=== PATIENT | female | born 1945 | race Caucasian/White ===

== ENCOUNTER 2016-07-29 13:22 | Inpatient (IN) | payer MEDICARE, BC ==
[~2016-07-29] VITALS: Ht 160 cm; Wt 95.3 kg
[~2016-07-29 13:22] MED LIST: ACET325T9 PO; ALPR0.254 PO; ANAS1TAB PO; ASPI-612 PO; ATOR40TA59 PO; CARV12.52 PO; CITA10SO PO; CITA10TA4 PO; CLOP75TA57 PO; FENO145T2 PO; FURO-69 PO; FURO20TA3 PO; FURO40TA4 PO; GABA-585 PO; INSU100I13 SQ; INSU100V SQ; INSU100V13 SQ; INSU300I SQ; LEVO100T PO; LOSA50TA6 PO; MAGN400C PO; ONDA4TAB10 PO; PANT40TA5 PO; POTA20TA82 PO; PRAS10TA9 PO; SPIR25TA3 PO
[2016-07-29] MEDS ORDERED: IV NORMAL SALINE 1,000ML 1,000 ML IV SCH (13:35)
--- NOTE | 2016-07-29 13:39 | PHYS DOC ---
General Chief Complaint: DIZZY/LIGHT HEADED Stated Complaint: DIZZINESS Time Seen by MD: 13:27 Source: patient, old records Exam Limitations: no limitations Problems: History of Present Illness Initial Comments Patient is a 70-year-old female who comes to the ED complaining of dizziness. Patient states that last night she plan to check her glucose around 9 PM and take her Lantus. She says she fell asleep and forgot about these issues until this morning. This morning she noticed she was feeling sluggish and tired, she' s had decreased urination and her glucose which typically runs in the 200s was in the 400s. She reports that she intermittently gets some right upper quadrant discomfort but cannot related to by mouth intake. No fever chills sweats myalgias headache focal weakness, no chest pain the patient does have chronic shortness of breath she denies any new symptoms. Follows with Adriana Hunter Patient follows with Dr. Adam mcdonald cardiology she had an echo May 07 of this year with an ejection fraction of 25-30%. 98.2, and 90, 133/69, 18, 94 room air Timing/Duration: 4-6 hours Severity: moderate Modifying Factors: worse with movement, improves with rest Associated Symptoms: loss of appetite, malaise, weakness Allergies: Coded Allergies: No Known Drug Allergies (Unverified , 07/29/16) Past Medical History Medical History: other (diabetes, peripheral neuropathy, hypertension, hyperlipidemia, coronary artery disease, breast cancer, COPD, hypothyroidism) Surgical History: angioplasty (cardiac stent), pacemaker (total abdominal hysterectomy, left-sided mastectomy) Social History Smoker: non-smoker Alcohol: occasionally Drugs: none Review of Systems Constitutional: denies chills, denies fever, malaise Respiratory: see HPI, denies cough Cardiovascular: denies chest pain, denies palpitations, denies syncope Gastrointestinal: see HPI, denies diarrhea, denies vomiting Genitourinary: see HPI Musculoskeletal: denies back pain, denies joint swelling, denies neck pain Psychiatric/Neurological: see HPI Hematologic/Lymphatic: denies blood clots, denies easy bleeding, denies easy bruising Physical Exam General Appearance: no apparent distress, obese Eyes: bilateral eye normal inspection, bilateral eye PERRL, bilateral eye EOMI Ear, Nose, Throat: hearing grossly normal, normal ENT inspection, normal pharynx Neck: non-tender, supple Respiratory: normal breath sounds, no respiratory distress Cardiovascular: normal peripheral pulses, regular rate, rhythm Gastrointestinal: soft (large ventral hernia no evidence of incarceration or strangulation, mild right upper quadrant tenderness no rebound guarding or other masses bowel sounds appear normal) Back: no CVA tenderness, no vertebral tenderness Extremities: non-tender, normal inspection 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 PHYSICIAN: JUSTINE PENA DO REASON: dm cad PROCEDURE: PORTABLE CHEST 1V Indication near syncope. A single view of the chest was obtained and is compared to an examination 11 months earlier. Heart size is at the upper limits of normal. There is no congestive heart failure. No focal infiltrate is seen. There is no pleural fluid or pneumothorax. There is no congestive heart failure. IMPRESSION: No acute or focal process is seen in the chest DICTATED AND SIGNED BY: CECILIA MORELAND MD DATE: 07/29/16 1415 CC: ADRIANA LAND; JUSTINE PENA DO ~ PATIENT: LAURE SIERRA ACCOUNT: [id number] : 1945 LOCATION: ER AGE: 70 SEX: F EXAM STATUS: REG ER ORD. PHYSICIAN: JUSTINE PENA DO REASON: epigastric/RUQ pain PROCEDURE: ABDOMEN COMPLETE Indication:Right upper quadrant pain Grayscale images of the abdomen were obtained. Comparison note is made of a prior examination over a decade ago reported as unremarkable Liver:There is some increased attenuation of the ultrasound beam by the liver compatible with fatty infiltration. A definite focal mass lesion is not seen in the visualized liver Gallbladder:Partially contracted but grossly normal. (The patient reports a recent meal). Common bile duct diameter of approximately 4 mm is normal Spleen:Normal Pancreas:Poorly visualized and largely obscured by gas Kidneys:Normal Abdominal aorta and IVC:Similar to the aorta were largely obscured Ancillary findings:None Impression:Fatty infiltration of the liver. Midline structures largely obscured by gas. Partially contracted gallbladder DICTATED AND SIGNED BY: CECILIA MORELAND MD DATE: 07/29/16 1516 CC: ADRIANA LAND; JUSTINE PENA DO ~ Potassium 3.0, BUN 43, creatinine 2.2, glucose 408, creatine kinase 248, BNP 150 Patient received 40 mEq of potassium by mouth and another 10 mEq IV. She received 10 units of regular insulin IV and approximately 700 mL of normal saline IV. Recheck after approximately one hour, potassium 3.1, BUN 40, creatinine 1.6, glucose 303. IMPRESSIONS: Uncontrolled diabetes with hyperglycemia nonketotic Hypovolemia Hypokalemia Acute renal failure Elevated CK Large ventral hernia I discussed the patient with Dr. Cobb who accepts inpatient telemetry admission. Departure Disposition: ADMITTED INPATIENT Additional Instructions: Admit to JUSTINE Bardales DO Jul 29, 2016 13:39
--- NOTE | 2016-07-29 13:40 | EKG ---
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
[2016-07-29 13:59] LABS: BASO % 1 % (0-3); EOS # 0.1 x10^3/uL (0.0-0.7); EOS % 1 % (0-3); HEMATOCRIT 40.1 % (36.0-47.0); LYMPH % 25 % (24-48); MEAN CORPUSCULAR HEMOGLOBIN 31 pg (25-35); MEAN CORPUSCULAR HGB CONC 35 g/dL (31-37); MEAN CORPUSCULAR VOLUME 88 fL (79-100); MONO # 0.5 x10^3/uL (0.0-1.1); MONO % 7 % (0-9); NEUT # 5.6 x10^3uL (1.8-7.7); NEUT % 68 % (31-73); PLATELET COUNT 159 x10^3/uL (140-400); RED BLOOD COUNT 4.56 x10^6/uL (3.50-5.40); RED CELL DISTRIBUTION WIDTH 12.4 % (11.5-14.5); WHITE BLOOD COUNT 8.2 x10^3/uL (4.0-11.0)
[2016-07-29 14:18] LABS: ALBUMIN/GLOBULIN RATIO 1.2 (1.0-1.7); CREATININE 2.2 mg/dL (0.6-1.0); GFR 22.2; MAGNESIUM 1.8 mg/dL (1.8-2.4); TOTAL BILIRUBIN 0.5 mg/dL (0.2-1.0); TOTAL PROTEIN 7.3 g/dL (6.4-8.2)
--- NOTE | 2016-07-29 14:23 | RAD ---
Indication near syncope. A single view of the chest was obtained and is compared to an examination 11 months earlier. Heart size is at the upper limits of normal. There is no congestive heart failure. No focal infiltrate is seen. There is no pleural fluid or pneumothorax. There is no congestive heart failure. IMPRESSION: No acute or focal process is seen in the chest
[2016-07-29 14:36] LABS: BACTERIA,URINE FEW /HPF (0-FEW); BILIRUBIN,URINE NEG (NEG); CLARITY,URINE HAZY; COLOR,URINE YELLOW; GLUCOSE,URINE 100 mg/dL (NEG); HYALINE CASTS, URINE MANY /HPF; NITRITE,URINE NEG (NEG); RBC,URINE RARE /HPF (0-2); SQUAMOUS EPITHELIAL CELL,UR MOD /LPF; UROBILINOGEN,URINE 0.2 mg/dL (0.2 mg/dL); WBC,URINE OCC /HPF (0-4)
[2016-07-29] MEDS: POTASSIUM CHLORIDE 20 MEQ TABLET.ER. PO ONE ×2 (14:45→15:29)
[2016-07-29] MEDS ORDERED: POTASSIUM CHLORIDE 20 MEQ/15 ML ORAL LIQUID. PO ONE (15:00)
[2016-07-29] MEDS ORDERED: INSULIN REGULAR 100 UNIT/ML 10ML VIAL. IV ONE (15:00)
--- NOTE | 2016-07-29 15:22 | RAD ---
Indication:Right upper quadrant pain Grayscale images of the abdomen were obtained. Comparison note is made of a prior examination over a decade ago reported as unremarkable Liver:There is some increased attenuation of the ultrasound beam by the liver compatible with fatty infiltration. A definite focal mass lesion is not seen in the visualized liver Gallbladder:Partially contracted but grossly normal. (The patient reports a recent meal). Common bile duct diameter of approximately 4 mm is normal Spleen:Normal Pancreas:Poorly visualized and largely obscured by gas Kidneys:Normal Abdominal aorta and IVC:Similar to the aorta were largely obscured Ancillary findings:None Impression:Fatty infiltration of the liver. Midline structures largely obscured by gas. Partially contracted gallbladder
[2016-07-29] MEDS: POTASSIUM CHLORIDE 10MEQ 100 ML IV SCH ×2 (15:42→17:09)
[2016-07-29] MEDS ORDERED: ONDANSETRON PF 4 MG/2 ML VIAL. IV PRN (17:15)
[2016-07-29] MEDS ORDERED: ACETAMINOPHEN 325 MG TABLET PO PRN ×2 (17:15→20:30)
--- NOTE | 2016-07-29 18:20 | ACF ---
Admission Criteria Forms DIABETES Clinical Indications for Admission to Inpatient Care (Place 'X' for any and all applicable criteria): Admission is indicated by presence of ALL (if I & II) or ANY ONE (if III or IV) of the following (1)(2)(3)(4): [X]I. Diabetes is uncontrolled as indicated by ANY ONE of the following: [ ]a) Diabetic ketoacidosis as indicated by ALL of the following (8): [ ]i) Hyperglycemia (eg, plasma glucose greater than 200 mg/ dL (11.1 mmol/L)) [ ]ii) Acidosis (eg, arterial pH less than 7.30, serum bicarbonate level less than 15 mEq/L (mmol/L)) [ ]iii) Moderate ketonuria or ketonemia [ ]b) Hyperglycemic hyperosmolar state as indicated by ALL of the following(9)(10): [ ]i) Neurologic dysfunction (eg, stupor, coma, hemiparesis , seizure)(13) [ ]ii) Plasma glucose greater than 600 mg/dL (33.3 mmol/L) [ ]iii) Serum osmolality greater than 320 mOsm/kg (mmol/kg) [X]c) Severe signs or symptoms secondary to hyperglycemia indicated by ANY ONE of the following: [ ]i) Altered mental status(10) [X]ii) Significant hypovolemia or dehydration [ ]iii) Intractable nausea or vomiting [ ]iv) Unexplained fever or severe infection [ ]v) Severe electrolyte abnormality (eg, hypokalemia, hyperkalemia, hypernatremia) [XII. Management at other levels of care (Also use Diabetes: Observation Care as appropriate) is not feasible because of ANY ONE of the following: [ ]a) Condition was not adequately corrected with treatment at other levels of care. [X]b) Treatment at other levels of care is not appropriate because of condition severity (eg, hyperosmolar coma). [ ]III. Contraindications and/or Inappropriate clinical situations for Observational Care in patients with Diabetes, when ANY ONE of the following is required: [ ]a) Patient require specific diagnostic workup or therapeutic intervention 22 [ ]b) Patient with abnormal vital signs or altered mental status 23 [ ]IV. General contraindications and/or Inappropriate clinical situations for Observational Care in patients with Diabetes, when ANY ONE of the following is required: [ ]a) Prediction of prolongation of LOS based on ANY ONE of the following may be considered as a contraindication for observational care 2, 3, 4, 5, 6, 7, 8, 9, 10, 11 [ ]i) Age > 65 yrs. [ ]ii) Patient arriving by ambulance [ ]iii) Patient with high acuity [ ]iv) Patient requiring vital sign monitoring [ ]v) Patient on IV medication [ ]b) Systolic blood pressures 180mmHg 3,12 [ ]c) Patient with altered mental status including delirium and other alteration of consciousness, (3) [ ]d) Patient whose discharge disposition will be to a long term home or rehabilitation home should not be managed in Emergency Department Observation Unit. CMS rule requires 3 days hospital stay before such placement.3,13 [ ]e) Patient with failure to thrive due to broad array of etiologies 3,16,17 [ ]f) Inability to ambulate 3,14 Extended stay beyond goal length of stay may be needed for(3)(20): [ ]a) Treatment of precipitating causes [ ]b) Development of hypoglycemia [ ]c) Complications of treatment [ ]d) Complications of decompensated diabetes (eg, acute gastric dilatation, persistent metabolic or neurologic derangement) [ ]e) Active Comorbidities [ ]f) Older patients( 65 years or older) The original [employer] content created by [employer] has been revised. The portions of the content which have been revised are identified through the use of italic text or in bold,and [facility] has neither reviewed nor approved the modified material. All other unmodified content is copyright [email or web address]. Please see references footnoted in the original [email or web address] edition 2016 Admission Criteria Met?: Yes SUKHI CORNELL Jul 29, 2016 18:20
[2016-07-29 18:45] VITALS: BP 135/76
[2016-07-29] MEDS ORDERED: METO5TAB4 PO (19:22)
[2016-07-29] MEDS ORDERED: INSU100I13 SQ (19:31)
[2016-07-29] MEDS: IV NORMAL SALINE 1,000ML 1,000 ML IV SCH (19:39)
[2016-07-29] MEDS: INSULIN ASPART 300 UNITS/3 ML INSULN.PEN SQ SCH (19:42)
[2016-07-29] MEDS ORDERED: ALPRAZolam 0.25 MG TABLET PO PRN (20:30)
[2016-07-29] MEDS: GABAPENTIN 100 MG CAPSULE. PO SCH (21:39)
[2016-07-29] MEDS: FENOFIBRATE NANOCRYSTALLIZED 145 MG TABLET PO SCH (21:40)
[2016-07-29] MEDS: ATORVASTATIN CALCIUM 20 MG TABLET PO SCH (21:40)
[2016-07-29] MEDS: POTASSIUM CHLORIDE 20 MEQ/15 ML ORAL LIQUID. PO SCH ×2 (21:41→22:00)
[2016-07-29] MEDS: CARVEDILOL 12.5 MG TABLET PO SCH (21:43)
[2016-07-29] MEDS: INSULIN DETEMIR 300 UNITS/3 ML INSULN.PEN. SQ SCH (21:50)
[2016-07-29] MEDS: IPRATRPIUM/ALBUTEROL 0.5/2.5MG 3 ML NEBU. NEB SCH (22:00)
[2016-07-29 22:36] VITALS: BP 119/79
[2016-07-29] MEDS: POTASSIUM CHLORIDE 20 MEQ TABLET.ER. PO SCH (22:50)
[2016-07-30] MEDS: IV NORMAL SALINE 1,000ML 1,000 ML IV SCH ×3 (04:02→21:00)
[2016-07-30 04:21] VITALS: BP 102/61
[2016-07-30 04:24] LABS: BASO % 1 % (0-3); EOS # 0.1 x10^3/uL (0.0-0.7); EOS % 1 % (0-3); HEMOGLOBIN 12.8 g/dL (12.0-15.5); LYMPH # 2.4 x10^3/uL (1.0-4.8); LYMPH % 37 % (24-48); MEAN CORPUSCULAR HEMOGLOBIN 31 pg (25-35); MEAN CORPUSCULAR HGB CONC 35 g/dL (31-37); MEAN CORPUSCULAR VOLUME 88 fL (79-100); MONO # 0.6 x10^3/uL (0.0-1.1); MONO % 9 % (0-9); NEUT # 3.5 x10^3uL (1.8-7.7); NEUT % 53 % (31-73); PLATELET COUNT 135 x10^3/uL (140-400); RED BLOOD COUNT 4.21 x10^6/uL (3.50-5.40); WHITE BLOOD COUNT 6.7 x10^3/uL (4.0-11.0)
[2016-07-30 05:00] LABS: CALCIUM 8.4 mg/dL (8.5-10.1); CREATININE 1.6 mg/dL (0.6-1.0); GFR 32.1
[2016-07-30] MEDS: LEVOTHYROXINE 100 MCG TABLET PO SCH (06:38)
[2016-07-30] MEDS: POTASSIUM CHLORIDE 20 MEQ TABLET.ER. PO SCH ×3 (06:38→21:20)
[2016-07-30] MEDS: IPRATRPIUM/ALBUTEROL 0.5/2.5MG 3 ML NEBU. NEB SCH ×4 (07:19→20:52)
[2016-07-30] MEDS: ASPIRIN ENTERIC COATED 81 MG TABLET.DR. PO SCH (08:18)
[2016-07-30] MEDS: CITALOPRAM 10 MG TABLET. PO SCH (08:18)
[2016-07-30] MEDS: MAGNESIUM OXIDE 400 MG TABLET PO SCH (08:18)
[2016-07-30] MEDS: SPIRONOLACTONE 25 MG TABLET PO SCH (08:18)
[2016-07-30] MEDS: PANTOPRAZOLE 40 MG TABLET. PO SCH (08:18)
[2016-07-30] MEDS: CLOPIDOGREL BISULFATE 75 MG TABLET PO SCH (08:18)
[2016-07-30] MEDS: GABAPENTIN 100 MG CAPSULE. PO SCH ×2 (08:19→21:19)
[2016-07-30] MEDS: CARVEDILOL 12.5 MG TABLET PO SCH ×2 (08:19→16:58)
[2016-07-30] MEDS: INSULIN ASPART 300 UNITS/3 ML INSULN.PEN SQ SCH ×3 (08:28→16:58)
[2016-07-30] MEDS ORDERED: FUROSEMIDE 40 MG TABLET PO SCH (09:00)
[2016-07-30] MEDS ORDERED: metOLazone 5 MG TABLET PO SCH (09:00)
[2016-07-30] MEDS ORDERED: LOSARTAN 50 MG TABLET. PO SCH (09:00)
--- NOTE | 2016-07-30 09:29 | PDOC2 ---
MARYLIN GALAN APRN 07/30/16 0929: CONSULT Date of Admission DATE: 07/30/16 TIME: 09:11 Reason for Consult: chf Problem List Problems Medical Problems: (1) Hyperglycemia Status: Acute History of Present Illness Mrs Cole is a 70 year old female well known to our practice. She presents with complaints of lightheadedness and low blood pressure. She reports missed doses of insulin and elevated blood sugar, decreased urination and feeling general malaise. She was noted to he hyperglycemic and in acute renal failure in the ED so admitted for management. She denies chest pain, dyspnea or congestive symptoms. She denies palpitations, or syncope. Lightheadedness is improving. 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 Past Surgical History Total abdominal hysterectomy with BSO, left mastectomy and ICD implantation. 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 She denies smoking, ETOH or illicit drugs. Current Medications Current Medications Sodium Chloride 1,000 ml @ 1,000 mls/hr Q1H IV Last administered on 07/29/16 14:00; Start 07/29/16 at 13:35; Stop 07/29/16 at 14:34; Status DC Potassium Chloride (Klor-Con) 40 meq 1X ONCE PO Last administered on 07/29/16 15:29; Start 07/29/16 at 14:45; Stop 07/29/16 at 14:46; Status DC Potassium Chloride (KCl Oral Soln) 40 meq 1X ONCE PO ; Start 07/29/16 at 15:00; Stop 07/29/16 at 15:01; Status DC Insulin Human Regular (NovoLIN R) 10 unit 1X ONCE IV Last administered on 15:35; Start 07/29/16 at 15:00; Stop 07/29/16 at 15:01; Status DC Potassium Chloride 100 ml @ 100 mls/hr Q1H IV Last administered on 07/29/16 17 :09; Start 07/29/16 at 15:30; Stop 07/29/16 at 17:29; Status DC Ondansetron HCl (Zofran) 4 mg PRN Q4HRS PRN IV NAUSEA/VOMITING; Start 07/29/16 at 17:15; Stop 07/30/16 at 17:14 Sodium Chloride 1,000 ml @ 100 mls/hr Q10H IV Last administered on 07/30/16 04 :02; Start 07/29/16 at 17:12; Stop 07/30/16 at 17:11 Acetaminophen (Tylenol) 650 mg PRN Q4HRS PRN PO FEVER; Start 07/29/16 at 17:15; Stop 07/29/16 at 20:56; Status DC Albuterol/ Ipratropium (Duoneb) 3 ml RTQID NEB Last administered on 07/29/16 22 :00; Start 07/29/16 at 20:00; Stop 07/30/16 at 19:59 Potassium Chloride (KCl Oral Soln) 40 meq Q8HRS PO ; Start 07/29/16 at 22:00; Stop 07/29/16 at 22:25; Status DC Insulin Aspart (NovoLOG) 35 units TIDAC SQ Last administered on 07/30/16 08:28 ; Start 07/29/16 at 19:45 Acetaminophen (Tylenol) 650 mg PRN Q4HRS PRN PO PAIN / TEMP; Start 07/29/16 at 20:30 Alprazolam (Xanax) 0.25 mg PRN TID PRN PO ANXIETY / AGITATION; Start 07/29/16 at 20:30 Aspirin (Aspirin Enteric Coated) 81 mg DAILY PO Last administered on 07/30/16 08:18; Start 07/30/16 at 09:00 Carvedilol (Coreg) 12.5 mg BIDWMEALS PO Last administered on 07/30/16 08:19; Start 07/29/16 at 21:00 Citalopram Hydrobromide (CeleXA) 10 mg DAILY PO Last administered on 07/30/16 08:18; Start 07/30/16 at 09:00 Clopidogrel Bisulfate (Plavix) 75 mg DAILY PO Last administered on 07/30/16 08: 18; Start 07/30/16 at 09:00 Fenofibrate (Tricor) 145 mg HS PO Last administered on 07/29/16 21:40; Start at 21:00 Furosemide (Lasix) 40 mg BID94 PO ; Start 07/30/16 at 09:00; Status Future Hold Gabapentin (Neurontin) 100 mg BID PO Last administered on 07/30/16 08:19; Start 07/29/16 at 21:00 Levothyroxine Sodium (Synthroid) 100 mcg DAILYAC PO Last administered on 06:38; Start 07/30/16 at 07:30 Losartan Potassium (Cozaar) 50 mg DAILY PO ; Start 07/30/16 at 09:00 Metolazone (Zaroxolyn) 5 mg DAILY PO ; Start 07/30/16 at 09:00 Pantoprazole Sodium (Protonix) 40 mg DAILY PO Last administered on 07/30/16 08: 18; Start 07/30/16 at 09:00 Spironolactone (Aldactone) 25 mg DAILY PO Last administered on 07/30/16 08:18; Start 07/30/16 at 09:00 Atorvastatin Calcium (Lipitor) 40 mg QHS PO Last administered on 07/29/16 21:40 ; Start 07/29/16 at 21:00 Insulin Detemir (Levemir) 80 units QHS SQ Last administered on 07/29/16 21:50; Start 07/29/16 at 21:00 Magnesium Oxide (Magnesium Oxide) 400 mg DAILY PO Last administered on 08:18; Start 07/30/16 at 09:00 Potassium Chloride (Klor-Con) 40 meq Q8HRS PO Last administered on 07/30/16 06: 38; Start 07/29/16 at 22:30 Active Scripts Active Magnesium (Magnesium Oxide) 400 Mg Capsule 1 Cap PO DAILY Reported Lantus Solostar (Insulin Glargine,Hum.rec.anlog) 100 Unit/1 Ml Insuln.pen 80 Unit SQ QHS Metolazone 5 Mg Tablet 5 Mg PO DAILY Spironolactone 25 Mg Tablet 25 Mg PO DAILY Synthroid (Levothyroxine Sodium) 100 Mcg Tablet 100 Mcg PO DAILYAC Plavix (Clopidogrel Bisulfate) 75 Mg Tablet 75 Mg PO DAILY Humalog (Insulin Lispro) 100 Unit/1 Ml Vial 35 Unit SQ TIDAC Furosemide 40 Mg Tablet 40 Mg PO BID Citalopram Hbr (Citalopram Hydrobromide) 10 Mg Tablet 10 Mg PO DAILY Tylenol (Acetaminophen) 325 Mg Tablet 650 Mg PO Q4HRS PRN Potassium Chloride 20 Meq Tablet.er 20 Meq PO DAILY Pantoprazole Sodium 40 Mg Tablet.dr 40 Mg PO DAILY Losartan Potassium 50 Mg Tablet 50 Mg PO DAILY Gabapentin 100 Mg Capsule 100 Mg PO BID Fenofibrate (Fenofibrate Nanocrystallized) 145 Mg Tablet 145 Mg PO HS Carvedilol 12.5 Mg Tablet 12.5 Mg PO BID Atorvastatin Calcium 40 Mg Tablet 40 Mg PO HS Aspirin Ec (Aspirin) 81 Mg Tablet.dr 81 Mg PO DAILY Alprazolam 0.25 Mg Tablet 0.25 Mg PO TID PRN Allergies: Coded Allergies: No Known Drug Allergies (Unverified , 07/29/16) Review of System as per HPI or neg General: Alert, Oriented X3, Cooperative, No acute distress HEENT: Atraumatic, EOMI Lungs: Clear to auscultation, Normal air movement Heart: Regular rate, Normal S1, Normal S2 Abdomen: Normal bowel sounds, Soft, No tenderness Extremities: No edema, Normal pulses Neuro: Normal speech, Strength at 5/5 X4 ext Psych/Mental Status: Mental status NL, Mood NL VITALS Vital Signs Date Time Temp Pulse Resp B/P (MAP) Pulse Ox O2 Delivery O2 Flow Rate FiO2 07/30/16 08:19 80 102/61 07/30/16 04:21 98.2 20 95 Room Air Labs Laboratory Tests Test 07/29/16 13:45 07/29/16 13:48 07/29/16 14:00 07/29/16 16:53 White Blood Count 8.2 x10^3/uL (4.0-11.0) Red Blood Count 4.56 x10^6/uL (3.50-5.40) Hemoglobin 14.0 g/dL (12.0-15.5) Hematocrit 40.1 % (36.0-47.0) Mean Corpuscular Volume 88 fL (79-100) Mean Corpuscular Hemoglobin 31 pg (25-35) Mean Corpuscular Hemoglobin Concent 35 g/dL (31-37) Red Cell Distribution Width 12.4 % (11.5-14.5) Platelet Count 159 x10^3/uL (140-400) Neutrophils (%) (Auto) 68 % (31-73) Lymphocytes (%) (Auto) 25 % (24-48) Monocytes (%) (Auto) 7 % (0-9) Eosinophils (%) (Auto) 1 % (0-3) Basophils (%) (Auto) 1 % (0-3) Neutrophils # (Auto) 5.6 x10^3uL (1.8-7.7) Lymphocytes # (Auto) 2.0 x10^3/uL (1.0-4.8) Monocytes # (Auto) 0.5 x10^3/uL (0.0-1.1) Eosinophils # (Auto) 0.1 x10^3/uL (0.0-0.7) Basophils # (Auto) 0.0 x10^3/uL (0.0-0.2) Prothrombin Time 11.0 SEC (9.4-11.4) Prothromb Time International Ratio 1.1 (0.9-1.1) Activated Partial Thromboplast Time 21 SEC (23-33) D-Dimer (Sue) 0.49 mg/L (0.00-0.50) Sodium Level 135 mmol/L (136-145) Potassium Level 3.0 mmol/L (3.5-5.1) Chloride Level 94 mmol/L (98-107) Carbon Dioxide Level 31 mmol/L (21-32) Anion Gap 10 (6-14) Blood Urea Nitrogen 43 mg/dL (7-20) Creatinine 2.2 mg/dL (0.6-1.0) Estimated GFR (Cockcroft-Gault) 22.2 BUN/Creatinine Ratio 20 (6-20) Glucose Level 408 mg/dL (70-99) Calcium Level 9.0 mg/dL (8.5-10.1) Magnesium Level 1.8 mg/dL (1.8-2.4) Total Bilirubin 0.5 mg/dL (0.2-1.0) Aspartate Amino Transf (AST/SGOT) 20 U/L (15-37) Alanine Aminotransferase (ALT/SGPT) 32 U/L (14-59) Alkaline Phosphatase 74 U/L (46-116) Creatine Kinase 248 U/L (26-192) Troponin I Quantitative < 0.017 ng/mL (0-0.055) RN-Lbq-S-Type Natriuretic Peptide 150 pg/mL (0-124) Total Protein 7.3 g/dL (6.4-8.2) Albumin 4.0 g/dL (3.4-5.0) Albumin/Globulin Ratio 1.2 (1.0-1.7) Lipase 339 U/L (73-393) Glucose (Fingerstick) 403 mg/dL (70-99) 305 mg/dL (70-99) Urine Collection Type Unknown Urine Color Yellow Urine Clarity Hazy Urine pH 5.5 Urine Specific [place] 1.010 Urine Protein Neg (NEG-TRACE) Urine Glucose (UA) 100 mg/dL (NEG) Urine Ketones (Stick) Neg mg/dL (NEG) Urine Blood Trace (NEG) Urine Nitrite Neg (NEG) Urine Bilirubin Neg (NEG) Urine Urobilinogen Dipstick 0.2 mg/dL (0.2 mg/dL) Urine Leukocyte Esterase Neg (NEG) Urine RBC Rare /HPF (0-2) Urine WBC Occ /HPF (0-4) Urine Squamous Epithelial Cells Mod /LPF Urine Bacteria Few /HPF (0-FEW) Urine Hyaline Casts Many /HPF Urine Mucus Slight /LPF Test 07/29/16 18:48 07/29/16 22:05 07/30/16 04:10 07/30/16 07:33 Glucose (Fingerstick) 246 mg/dL (70-99) 228 mg/dL (70-99) Troponin I Quantitative < 0.017 ng/mL (0-0.055) < 0.017 ng/mL (0-0.055) White Blood Count 6.7 x10^3/uL (4.0-11.0) Red Blood Count 4.21 x10^6/uL (3.50-5.40) Hemoglobin 12.8 g/dL (12.0-15.5) Hematocrit 37.0 % (36.0-47.0) Mean Corpuscular Volume 88 fL (79-100) Mean Corpuscular Hemoglobin 31 pg (25-35) Mean Corpuscular Hemoglobin Concent 35 g/dL (31-37) Red Cell Distribution Width 13.0 % (11.5-14.5) Platelet Count 135 x10^3/uL (140-400) Neutrophils (%) (Auto) 53 % (31-73) Lymphocytes (%) (Auto) 37 % (24-48) Monocytes (%) (Auto) 9 % (0-9) Eosinophils (%) (Auto) 1 % (0-3) Basophils (%) (Auto) 1 % (0-3) Neutrophils # (Auto) 3.5 x10^3uL (1.8-7.7) Lymphocytes # (Auto) 2.4 x10^3/uL (1.0-4.8) Monocytes # (Auto) 0.6 x10^3/uL (0.0-1.1) Eosinophils # (Auto) 0.1 x10^3/uL (0.0-0.7) Basophils # (Auto) 0.0 x10^3/uL (0.0-0.2) Sodium Level 140 mmol/L (136-145) Potassium Level 4.0 mmol/L (3.5-5.1) Chloride Level 103 mmol/L (98-107) Carbon Dioxide Level 30 mmol/L (21-32) Anion Gap 7 (6-14) Blood Urea Nitrogen 36 mg/dL (7-20) Creatinine 1.6 mg/dL (0.6-1.0) Estimated GFR (Cockcroft-Gault) 32.1 Glucose Level 251 mg/dL (70-99) Calcium Level 8.4 mg/dL (8.5-10.1) Creatine Kinase 191 U/L (26-192) Images EKG - sinus rhythm with non specific st/t abn. CXR - IMPRESSION: No acute or focal process is seen in the chest abdominal US - Impression:Fatty infiltration of the liver. Midline structures largely obscured by gas. Partially contracted gallbladder Assessment/Plan 1. chronic systolic heart failure NYHA class 2-3 - compensated. thoracic impedance measured yesterday and stable. BNP elevation is not significant. CXR without HF. 2. ARF - Continue to hold diuretics. Decrease IVF and monitor closely. 3. NICM/ICM s/p ICD - recent ICD check reveals stable impedances, thresholds and sensing. 4. CAD - angina free. continue medical therapy. 5. hypertension - controlled on current med therapy. consider start entresto in am. 6. hyperlipidemia - check lipids No overt heart failure. Continue to hold diuretics today, decrease IVF and monitor closely for overload. hypokalemia resolved, (she reports not taking potassium at home). Problems: KRISTI BRAVO MD 07/31/16 1607: CONSULT Allergies: Coded Allergies: No Known Drug Allergies (Unverified , 07/29/16) Assessment/Plan Pt. seen and examined. 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 70 y.o woman with LOVE in the setting of uncontrolled blood sugars. Normal cardiac exam. No edema. Start entresto f/u in the office in 7-10 days. Repeat labs next week. thx for consult. Problems: MARYLIN GALAN APRN Jul 30, 2016 09:29 KRISTI BRAVO MD Jul 31, 2016 16:07
[2016-07-30 10:41] VITALS: BP 151/79
[2016-07-30 14:35] VITALS: BP 144/108
[2016-07-30 15:18] VITALS: BP 134/76
[2016-07-30 18:32] VITALS: BP 117/56
[2016-07-30] MEDS: INSULIN DETEMIR 300 UNITS/3 ML INSULN.PEN. SQ SCH (21:15)
[2016-07-30] MEDS: SACUBITRIL/VALSARTAN 24/26MG TABLET. PO SCH (21:19)
[2016-07-30] MEDS: ATORVASTATIN CALCIUM 20 MG TABLET PO SCH (21:19)
[2016-07-30] MEDS: FENOFIBRATE NANOCRYSTALLIZED 145 MG TABLET PO SCH (21:20)
--- NOTE | 2016-07-30 21:57 | HP ---
ADMIT DATE: 07/29/2016 HISTORY OF PRESENT ILLNESS: This is a 70-year-old female patient who basically came to the Emergency Room with a complaint of lightheadedness and was found to be hypotensive. Her blood sugar was high and she was also complained of generalized malaise and weakness and also decreased urination. In the Emergency Room, was found to have hypoglycemia, hypokalemia and acute kidney injury. She denied any chest pain or shortness of breath. Denied any palpitations or syncope. Her lab work showed that she was extremely hypokalemic with some potassium of 3 mEq/L. Her blood sugar was 408, BUN was 43, and creatinine 2.2; however, her BNP was unremarkable at only 150. The patient was basically started on IV fluids and continued on her insulin sliding scale. We held all her diuretics that included her carvedilol. We held her furosemide, losartan as well as metolazone and was admitted for further evaluation and to consult the Cardiology team. PAST MEDICAL HISTORY: Significant for coronary artery disease status post PCI. She is known to have ischemic and nonischemic cardiomyopathy with an ejection fraction of 25%, hypertension, hyperlipidemia, type 2 diabetes, history of breast cancer status post ICD for primary prevention, and chronic systolic congestive heart failure. PAST SURGICAL HISTORY: Significant for total abdominal hysterectomy with bilateral salpingo-oophorectomy, left mastectomy and ICD implantation. FAMILY HISTORY: Noncontributory. 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 She does not smoke, drink alcohol or use recreational drugs. She lives on her own and normally fairly independent. ALLERGIES: She has no known drug allergies. MEDICATIONS: She is currently on following medications: She is on acetaminophen 650 mg every 4 hours, alprazolam 0.25 mg 3 times a day, aspirin 81 mg once a day, atorvastatin calcium 40 mg at bedtime, carvedilol 12.5 mg twice a day, citalopram hydrobromide 10 mg once a day, Plavix 75 mg once a day, fenofibrate nanocrystallized 145 mg once a day, furosemide 40 mg p.o. b.i.d., gabapentin 100 mg twice a day. She is on Lantus insulin 80 units subcutaneously at bedtime. She is on Humalog insulin 35 units subcutaneously 3 times a day before meals, levothyroxine sodium 100 mcg once a day, losartan potassium 50 mg once a day, magnesium oxide 400 mg once a day, metolazone 5 mg daily, Protonix 40 mg once a day, potassium chloride 20 mEq once a day and spironolactone 25 mg once a day. REVIEW OF SYSTEMS: As per history of present illness. In the Emergency Room, the patient was noted to be somewhat pale, but no jaundice, cyanosis, or thyromegaly. No jugular venous distention. No limb edema. PHYSICAL EXAMINATION: VITAL SIGNS: Her heart rate was 90, blood pressure was 131/69, temperature was 98, respiratory rate was 18 and oxygen saturation was 97% on room air. HEAD, EYES, EARS, NOSE AND THROAT: Showed normocephalic, atraumatic. NECK: Supple. HEART: Showed normal first and second heart sounds with no gallop, rub or murmur. CHEST: Clear to auscultation. No crepitation or rhonchi. ABDOMEN: Distended, soft, nontender. No guarding or rigidity. No organomegaly. Hernial orifices intact. Bowel sounds normal. NEUROLOGIC: She was awake, alert, responding appropriately. Cranial nerves intact. EXTREMITIES: She moves extremities without difficulty. LABORATORY DATA: While in the Emergency Room, she has had lab work done including a CBC with a white cell count of 8200, hemoglobin 14, hematocrit 40, MCV 88 and platelet count of 159,000 with normal manual differential. Her chemistry showed a serum sodium 135, potassium 3, chloride 94, bicarbonate 31, anion gap of 10, BUN 43, creatinine 2.2. Estimated GFR was 22 mL per minute. Her glucose was 408, calcium was 9, magnesium was 1.8. Total bilirubin, AST, ALT, alkaline phosphatase were normal. Her CK was 248. Her troponin was less than 0.017. Her beta natriuretic peptide was 150. Total protein was 7.3, albumin was 4. Her prothrombin time was 11, INR 1.1, aPTT was 21 and D-dimer was 0.49. Her urinalysis showed the urine was yellow, hazy with a pH of 5.5, specific gravity of 1.010. The urine was negative for protein, small amount of glucose, negative for ketones. There was a trace of blood, negative for nitrite and leukocyte esterase. There are rare rbc's, occasional wbc's, very few bacteria. Her chest x-ray showed that her heart size is at the upper limit of normal. There is no congestive heart failure, no focal infiltrate is seen. There is no pleural fluid or pneumothorax. There is no congestive heart failure. Given her right upper quadrant pain and slightly abnormal liver enzymes, an abdominal ultrasound showed that she has fatty infiltration of the liver. Midline structures largely obscured by gas, partially contracted gallbladder. ASSESSMENT AND PLAN: The patient was admitted and continued on IV fluid. We held all her diuretics in particular her furosemide, metolazone and losartan. We will continue on insulin and we will monitor her lab work closely and adjust IV fluid and her medication accordingly. NABILA HARDING MD DR: COLEMAN/barak JOB#: [id number] / [id number]
[2016-07-30 23:30] VITALS: BP 138/81
[2016-07-31 05:12] VITALS: BP 130/69
[2016-07-31] MEDS ORDERED: IPRATRPIUM/ALBUTEROL 0.5/2.5MG 3 ML NEBU. ONE (05:29)
[2016-07-31] MEDS: POTASSIUM CHLORIDE 20 MEQ TABLET.ER. PO SCH ×2 (06:09→15:50)
[2016-07-31] MEDS: LEVOTHYROXINE 100 MCG TABLET PO SCH (06:09)
--- NOTE | 2016-07-31 06:12 | PN ---
DATE: 07/30/2016 SUBJECTIVE: The patient was admitted yesterday with dehydration, hyperglycemia, marked hypokalemia, and acute on chronic kidney disease. She was started on IV normal saline at 100 mL per hour. We held all her diuretics and losartan. Continue with potassium. PHYSICAL EXAMINATION: GENERAL: When I examined her this afternoon, she looked well and was clearly in no apparent respiratory distress. She was pale, but no jaundice, cyanosis, or thyromegaly. No jugular venous distension. No lower limb edema. VITAL SIGNS: Her heart rate was 73, blood pressure was 135/76, temperature was 97.5, respiratory rate 20, and oxygen saturation was 96% on room air. The rest of clinical examination is unremarkable. LABORATORY DATA: Her white cell count this morning was 6,700, hemoglobin 12.8, hematocrit 37, MCV 88, and platelet count of 135,000. Her serum sodium this morning was 140, potassium is up to 4, chloride 103, bicarbonate 30, anion gap of 7, BUN 36, creatinine 1.6. Estimated GFR was 32 mL per minute. Her glucose was 251, calcium was 8.4. She has 2 sets of cardiac enzymes and both of them showed troponin to be less than 0.017. ASSESSMENT: 1. Chronic systolic congestive heart failure, well compensated. 2. Acute renal failure, resolving slowly. Her creatinine came down from 2.2 to 1.6. She continues to be on IV fluid. We held her diuretics and losartan. 3. Nonischemic cardiomyopathy/ischemic cardiomyopathy, status post ICD. Her most recent ejection fraction was 25%. 4. Coronary artery disease, stable. The patient is chest pain free. 5. Hypertension, well controlled. 6. Hyperlipidemia. 7. Type 2 diabetes, which is suboptimally controlled. PLAN: To continue with IV fluids at a lower rate. Continue to ____ her lab work. Tomorrow we will get the physical therapy to work with the patient and if she is stable and all her lab work is stabilized, can be discharged home. NABILA HARDING MD DR: COLEMAN/barak JOB#: [id number] / [id number]
[2016-07-31 06:36] LABS: ALBUMIN 3.5 g/dL (3.4-5.0); ALBUMIN/GLOBULIN RATIO 1.1 (1.0-1.7); CALCIUM 8.8 mg/dL (8.5-10.1); CREATININE 1.2 mg/dL (0.6-1.0); GFR 44.7; POTASSIUM 4.6 mmol/L (3.5-5.1); TOTAL BILIRUBIN 0.4 mg/dL (0.2-1.0); TOTAL PROTEIN 6.8 g/dL (6.4-8.2)
[2016-07-31] MEDS: INSULIN ASPART 300 UNITS/3 ML INSULN.PEN SQ SCH ×3 (08:41→16:27)
[2016-07-31] MEDS: SPIRONOLACTONE 25 MG TABLET PO SCH (08:43)
[2016-07-31] MEDS: CARVEDILOL 12.5 MG TABLET PO SCH ×2 (08:43→16:28)
[2016-07-31] MEDS: ASPIRIN ENTERIC COATED 81 MG TABLET.DR. PO SCH (08:44)
[2016-07-31] MEDS: CITALOPRAM 10 MG TABLET. PO SCH (08:44)
[2016-07-31] MEDS: CLOPIDOGREL BISULFATE 75 MG TABLET PO SCH (08:45)
[2016-07-31] MEDS: MAGNESIUM OXIDE 400 MG TABLET PO SCH (08:45)
[2016-07-31] MEDS: GABAPENTIN 100 MG CAPSULE. PO SCH (08:45)
[2016-07-31] MEDS: SACUBITRIL/VALSARTAN 24/26MG TABLET. PO SCH (08:45)
[2016-07-31] MEDS: PANTOPRAZOLE 40 MG TABLET. PO SCH (08:46)
--- NOTE | 2016-07-31 09:43 | PDOC ---
PROGRESS NOTES Diagnosis Problem Problems Medical Problems: (1) Hyperglycemia Status: Acute Assessment Problems Medical Problems: (1) Hyperglycemia Status: Acute 1. chronic systolic heart failure NYHA class 2-3 - compensated. BNP elevation is not significant. CXR without HF. Started on Entresto, discontinue losartan and decrease home diuretics. 2. ARF - Improved. 3. NICM/ICM s/p ICD - recent ICD check reveals stable impedances, thresholds and sensing. 4. CAD - angina free. continue medical therapy. 5. hypertension - controlled on current med therapy. 6. hyperlipidemia - check lipids 7. uncontrolled diabetes mellitus - per PCP She reports that she had been taking no more that three 40mg tablets of lasix at home after starting metolazone in June. Suggest discharge lasix at no more than 20mg BID as she is now on Entresto. Follow up in office in 4 weeks (August 29 at 1:45). Check BMP in 1 week. Subjective feeling ok, no chest pain, no dyspnea, no palpitations. Objective Vital Signs Date Time Temp Pulse Resp B/P (MAP) Pulse Ox O2 Delivery O2 Flow Rate FiO2 07/31/16 08:45 74 130/69 07/31/16 05:12 97.6 20 96 Room Air Intake and Output 07/31/16 07:00 Intake Total 3027.78 ml Balance 3027.78 ml Intake Oral 1600 ml IV Total 1427.78 ml # Voids 6 # Bowel Movements 1 Physical Exam Gen: Awake and alert, no acute distress Neck: no JVD/HJR CV: RRR, no S3/S4 lungs: clear abd: +bowel sounds, soft, non tender Ext: no edema, + pulses Review of Relevant I have reviewed the following items junior (where applicable) has been applied. Labs Laboratory Tests Test 07/29/16 13:45 07/29/16 13:48 07/29/16 14:00 07/29/16 16:53 White Blood Count 8.2 x10^3/uL (4.0-11.0) Red Blood Count 4.56 x10^6/uL (3.50-5.40) Hemoglobin 14.0 g/dL (12.0-15.5) Hematocrit 40.1 % (36.0-47.0) Mean Corpuscular Volume 88 fL (79-100) Mean Corpuscular Hemoglobin 31 pg (25-35) Mean Corpuscular Hemoglobin Concent 35 g/dL (31-37) Red Cell Distribution Width 12.4 % (11.5-14.5) Platelet Count 159 x10^3/uL (140-400) Neutrophils (%) (Auto) 68 % (31-73) Lymphocytes (%) (Auto) 25 % (24-48) Monocytes (%) (Auto) 7 % (0-9) Eosinophils (%) (Auto) 1 % (0-3) Basophils (%) (Auto) 1 % (0-3) Neutrophils # (Auto) 5.6 x10^3uL (1.8-7.7) Lymphocytes # (Auto) 2.0 x10^3/uL (1.0-4.8) Monocytes # (Auto) 0.5 x10^3/uL (0.0-1.1) Eosinophils # (Auto) 0.1 x10^3/uL (0.0-0.7) Basophils # (Auto) 0.0 x10^3/uL (0.0-0.2) Prothrombin Time 11.0 SEC (9.4-11.4) Prothromb Time International Ratio 1.1 (0.9-1.1) Activated Partial Thromboplast Time 21 SEC (23-33) D-Dimer (Sue) 0.49 mg/L (0.00-0.50) Sodium Level 135 mmol/L (136-145) Potassium Level 3.0 mmol/L (3.5-5.1) Chloride Level 94 mmol/L (98-107) Carbon Dioxide Level 31 mmol/L (21-32) Anion Gap 10 (6-14) Blood Urea Nitrogen 43 mg/dL (7-20) Creatinine 2.2 mg/dL (0.6-1.0) Estimated GFR (Cockcroft-Gault) 22.2 BUN/Creatinine Ratio 20 (6-20) Glucose Level 408 mg/dL (70-99) Calcium Level 9.0 mg/dL (8.5-10.1) Magnesium Level 1.8 mg/dL (1.8-2.4) Total Bilirubin 0.5 mg/dL (0.2-1.0) Aspartate Amino Transf (AST/SGOT) 20 U/L (15-37) Alanine Aminotransferase (ALT/SGPT) 32 U/L (14-59) Alkaline Phosphatase 74 U/L (46-116) Creatine Kinase 248 U/L (26-192) Troponin I Quantitative < 0.017 ng/mL (0-0.055) NF-Flu-E-Type Natriuretic Peptide 150 pg/mL (0-124) Total Protein 7.3 g/dL (6.4-8.2) Albumin 4.0 g/dL (3.4-5.0) Albumin/Globulin Ratio 1.2 (1.0-1.7) Lipase 339 U/L (73-393) Glucose (Fingerstick) 403 mg/dL (70-99) 305 mg/dL (70-99) Urine Collection Type Unknown Urine Color Yellow Urine Clarity Hazy Urine pH 5.5 Urine Specific [place] 1.010 Urine Protein Neg (NEG-TRACE) Urine Glucose (UA) 100 mg/dL (NEG) Urine Ketones (Stick) Neg mg/dL (NEG) Urine Blood Trace (NEG) Urine Nitrite Neg (NEG) Urine Bilirubin Neg (NEG) Urine Urobilinogen Dipstick 0.2 mg/dL (0.2 mg/dL) Urine Leukocyte Esterase Neg (NEG) Urine RBC Rare /HPF (0-2) Urine WBC Occ /HPF (0-4) Urine Squamous Epithelial Cells Mod /LPF Urine Bacteria Few /HPF (0-FEW) Urine Hyaline Casts Many /HPF Urine Mucus Slight /LPF Test 07/29/16 18:48 07/29/16 22:05 07/30/16 04:10 07/30/16 07:33 Glucose (Fingerstick) 246 mg/dL (70-99) 228 mg/dL (70-99) Troponin I Quantitative < 0.017 ng/mL (0-0.055) < 0.017 ng/mL (0-0.055) White Blood Count 6.7 x10^3/uL (4.0-11.0) Red Blood Count 4.21 x10^6/uL (3.50-5.40) Hemoglobin 12.8 g/dL (12.0-15.5) Hematocrit 37.0 % (36.0-47.0) Mean Corpuscular Volume 88 fL (79-100) Mean Corpuscular Hemoglobin 31 pg (25-35) Mean Corpuscular Hemoglobin Concent 35 g/dL (31-37) Red Cell Distribution Width 13.0 % (11.5-14.5) Platelet Count 135 x10^3/uL (140-400) Neutrophils (%) (Auto) 53 % (31-73) Lymphocytes (%) (Auto) 37 % (24-48) Monocytes (%) (Auto) 9 % (0-9) Eosinophils (%) (Auto) 1 % (0-3) Basophils (%) (Auto) 1 % (0-3) Neutrophils # (Auto) 3.5 x10^3uL (1.8-7.7) Lymphocytes # (Auto) 2.4 x10^3/uL (1.0-4.8) Monocytes # (Auto) 0.6 x10^3/uL (0.0-1.1) Eosinophils # (Auto) 0.1 x10^3/uL (0.0-0.7) Basophils # (Auto) 0.0 x10^3/uL (0.0-0.2) Sodium Level 140 mmol/L (136-145) Potassium Level 4.0 mmol/L (3.5-5.1) Chloride Level 103 mmol/L (98-107) Carbon Dioxide Level 30 mmol/L (21-32) Anion Gap 7 (6-14) Blood Urea Nitrogen 36 mg/dL (7-20) Creatinine 1.6 mg/dL (0.6-1.0) Estimated GFR (Cockcroft-Gault) 32.1 Glucose Level 251 mg/dL (70-99) Calcium Level 8.4 mg/dL (8.5-10.1) Creatine Kinase 191 U/L (26-192) Test 07/30/16 11:16 07/30/16 19:27 07/31/16 05:48 07/31/16 07:47 Glucose (Fingerstick) 269 mg/dL (70-99) 256 mg/dL (70-99) 202 mg/dL (70-99) Sodium Level 139 mmol/L (136-145) Potassium Level 4.6 mmol/L (3.5-5.1) Chloride Level 107 mmol/L (98-107) Carbon Dioxide Level 26 mmol/L (21-32) Anion Gap 6 (6-14) Blood Urea Nitrogen 20 mg/dL (7-20) Creatinine 1.2 mg/dL (0.6-1.0) Estimated GFR (Cockcroft-Gault) 44.7 BUN/Creatinine Ratio 17 (6-20) Glucose Level 192 mg/dL (70-99) Calcium Level 8.8 mg/dL (8.5-10.1) Total Bilirubin 0.4 mg/dL (0.2-1.0) Aspartate Amino Transf (AST/SGOT) 18 U/L (15-37) Alanine Aminotransferase (ALT/SGPT) 31 U/L (14-59) Alkaline Phosphatase 59 U/L (46-116) Total Protein 6.8 g/dL (6.4-8.2) Albumin 3.5 g/dL (3.4-5.0) Albumin/Globulin Ratio 1.1 (1.0-1.7) Medications Current Medications Sodium Chloride 1,000 ml @ 1,000 mls/hr Q1H IV Last administered on 07/29/16 14:00; Start 07/29/16 at 13:35; Stop 07/29/16 at 14:34; Status DC Potassium Chloride (Klor-Con) 40 meq 1X ONCE PO Last administered on 07/29/16 15:29; Start 07/29/16 at 14:45; Stop 07/29/16 at 14:46; Status DC Potassium Chloride (KCl Oral Soln) 40 meq 1X ONCE PO ; Start 07/29/16 at 15:00; Stop 07/29/16 at 15:01; Status DC Insulin Human Regular (NovoLIN R) 10 unit 1X ONCE IV Last administered on 15:35; Start 07/29/16 at 15:00; Stop 07/29/16 at 15:01; Status DC Potassium Chloride 100 ml @ 100 mls/hr Q1H IV Last administered on 07/29/16 17 :09; Start 07/29/16 at 15:30; Stop 07/29/16 at 17:29; Status DC Ondansetron HCl (Zofran) 4 mg PRN Q4HRS PRN IV NAUSEA/VOMITING; Start 07/29/16 at 17:15; Stop 07/30/16 at 17:14; Status DC Sodium Chloride 1,000 ml @ 100 mls/hr Q10H IV Last administered on 07/30/16 04 :02; Start 07/29/16 at 17:12; Stop 07/30/16 at 17:11; Status DC Acetaminophen (Tylenol) 650 mg PRN Q4HRS PRN PO FEVER; Start 07/29/16 at 17:15; Stop 07/29/16 at 20:56; Status DC Albuterol/ Ipratropium (Duoneb) 3 ml RTQID NEB Last administered on 07/30/16 20 :52; Start 07/29/16 at 20:00; Stop 07/30/16 at 19:59; Status DC Potassium Chloride (KCl Oral Soln) 40 meq Q8HRS PO ; Start 07/29/16 at 22:00; Stop 07/29/16 at 22:25; Status DC Insulin Aspart (NovoLOG) 35 units TIDAC SQ Last administered on 07/31/16 08:41 ; Start 07/29/16 at 19:45 Acetaminophen (Tylenol) 650 mg PRN Q4HRS PRN PO PAIN / TEMP Last administered on 07/31/16 06:09; Start 07/29/16 at 20:30 Alprazolam (Xanax) 0.25 mg PRN TID PRN PO ANXIETY / AGITATION; Start 07/29/16 at 20:30 Aspirin (Aspirin Enteric Coated) 81 mg DAILY PO Last administered on 07/31/16 08:44; Start 07/30/16 at 09:00 Carvedilol (Coreg) 12.5 mg BIDWMEALS PO Last administered on 07/31/16 08:43; Start 07/29/16 at 21:00 Citalopram Hydrobromide (CeleXA) 10 mg DAILY PO Last administered on 07/31/16 08:44; Start 07/30/16 at 09:00 Clopidogrel Bisulfate (Plavix) 75 mg DAILY PO Last administered on 07/31/16 08: 45; Start 07/30/16 at 09:00 Fenofibrate (Tricor) 145 mg HS PO Last administered on 07/30/16 21:20; Start at 21:00 Furosemide (Lasix) 40 mg BID94 PO ; Start 07/30/16 at 09:00; Status Future Hold Gabapentin (Neurontin) 100 mg BID PO Last administered on 07/31/16 08:45; Start 07/29/16 at 21:00 Levothyroxine Sodium (Synthroid) 100 mcg DAILYAC PO Last administered on 06:09; Start 07/30/16 at 07:30 Losartan Potassium (Cozaar) 50 mg DAILY PO ; Start 07/30/16 at 09:00; Stop at 14:56; Status DC Metolazone (Zaroxolyn) 5 mg DAILY PO ; Start 07/30/16 at 09:00 Pantoprazole Sodium (Protonix) 40 mg DAILY PO Last administered on 07/31/16 08: 46; Start 07/30/16 at 09:00 Spironolactone (Aldactone) 25 mg DAILY PO Last administered on 07/31/16 08:43; Start 07/30/16 at 09:00 Atorvastatin Calcium (Lipitor) 40 mg QHS PO Last administered on 07/30/16 21:19 ; Start 07/29/16 at 21:00 Insulin Detemir (Levemir) 80 units QHS SQ Last administered on 07/30/16 21:15; Start 07/29/16 at 21:00 Magnesium Oxide (Magnesium Oxide) 400 mg DAILY PO Last administered on 08:45; Start 07/30/16 at 09:00 Potassium Chloride (Klor-Con) 40 meq Q8HRS PO Last administered on 07/31/16 06: 09; Start 07/29/16 at 22:30 Sacubitril/ Valsartan (Entresto 24 Mg-26 Mg) 1 tab BID PO Last administered on 07/31/16 08:45; Start 07/30/16 at 21:00 Sodium Chloride 1,000 ml @ 50 mls/hr Q20H IV Last administered on 07/30/16 21: 00; Start 07/30/16 at 21:00 Albuterol/ Ipratropium (Duoneb) 3 ml STK-MED ONCE .ROUTE ; Start 07/31/16 at 05: 29; Stop 07/31/16 at 05:30; Status DC Active Scripts Active Magnesium (Magnesium Oxide) 400 Mg Capsule 1 Cap PO DAILY Reported Lantus Solostar (Insulin Glargine,Hum.rec.anlog) 100 Unit/1 Ml Insuln.pen 80 Unit SQ QHS Metolazone 5 Mg Tablet 5 Mg PO DAILY Spironolactone 25 Mg Tablet 25 Mg PO DAILY Synthroid (Levothyroxine Sodium) 100 Mcg Tablet 100 Mcg PO DAILYAC Plavix (Clopidogrel Bisulfate) 75 Mg Tablet 75 Mg PO DAILY Humalog (Insulin Lispro) 100 Unit/1 Ml Vial 35 Unit SQ TIDAC Furosemide 40 Mg Tablet 40 Mg PO BID Citalopram Hbr (Citalopram Hydrobromide) 10 Mg Tablet 10 Mg PO DAILY Tylenol (Acetaminophen) 325 Mg Tablet 650 Mg PO Q4HRS PRN Potassium Chloride 20 Meq Tablet.er 20 Meq PO DAILY Pantoprazole Sodium 40 Mg Tablet.dr 40 Mg PO DAILY Losartan Potassium 50 Mg Tablet 50 Mg PO DAILY Gabapentin 100 Mg Capsule 100 Mg PO BID Fenofibrate (Fenofibrate Nanocrystallized) 145 Mg Tablet 145 Mg PO HS Carvedilol 12.5 Mg Tablet 12.5 Mg PO BID Atorvastatin Calcium 40 Mg Tablet 40 Mg PO HS Aspirin Ec (Aspirin) 81 Mg Tablet.dr 81 Mg PO DAILY Alprazolam 0.25 Mg Tablet 0.25 Mg PO TID PRN Vitals/I & O Vital Sign - Last 24 Hours 07/30/16 07/30/16 07/30/16 07/30/16 10:41 14:35 15:18 15:43 Temp 97.6 97.6 Pulse 109 82 Resp 20 20 B/P (MAP) 151/79 (103) 144/108 (120) 134/76 (95) Pulse Ox 93 95 95 O2 Delivery Room Air Room Air Room Air 07/30/16 07/30/16 07/30/16 07/30/16 16:58 18:32 19:30 20:52 Temp 98.3 Pulse 82 82 Resp 20 B/P (MAP) 134/76 117/56 (76) Pulse Ox 94 98 O2 Delivery Room Air Room Air Room Air 07/30/16 07/30/16 07/31/16 07/31/16 21:19 23:30 05:12 08:43 Temp 97.7 97.6 Pulse 82 78 74 74 Resp 22 20 B/P (MAP) 117/56 138/81 (100) 130/69 (89) 130/69 Pulse Ox 96 96 O2 Delivery Room Air Room Air 07/31/16 08:45 Pulse 74 B/P (MAP) 130/69 Intake and Output 07/30/16 07/30/16 07/31/16 15:00 23:00 07:00 Intake Total 380 ml 2147.78 ml 500 ml Balance 380 ml 2147.78 ml 500 ml MARYLIN GALAN APRN Jul 31, 2016 09:43
[2016-07-31 10:46] VITALS: BP 125/86
[2016-07-31 14:26] VITALS: BP 113/74
[2016-07-31 16:28] VITALS: BP 113/74
[2016-07-31] MEDS: IV NORMAL SALINE 1,000ML 1,000 ML IV SCH (16:53)
[2016-07-31] MEDS ORDERED: FURO20TA3 PO (16:54)
--- NOTE | 2016-08-01 00:43 | DS ---
DATE OF DISCHARGE: 07/31/2016 HOSPITAL COURSE: The patient is sitting on the edge of the bed comfortably in no apparent distress. She is feeling better. She has had no further episodes of dizziness, lightheadedness. Her blood pressure has remained stable. Blood sugar is much better controlled. She was started on Entresto last night and her Lasix was cut down to 20 mg twice a day. Losartan was discontinued. Her lab work showed that her BUN and creatinine are now back to normal. Her BUN came down from 43 to 20 and creatinine came down from 2.2 to 1.2. The patient will be discharged home to follow up with the Cardiology team. PHYSICAL EXAMINATION: GENERAL: When I examined her this afternoon, she looked well and was clearly in no apparent respiratory distress. She was pale, but no jaundice, cyanosis or thyromegaly. No jugular venous distention. No limb edema. VITAL SIGNS: Her heart rate was 72, blood pressure was 113/74, temperature was 98.1, respiratory rate 20, and oxygen saturation was 96% on room air. HEAD, EYES, EARS, NOSE AND THROAT: Showed normocephalic, atraumatic. NECK: Supple. HEART: Showed normal first and second heart sounds with no gallop, rub or murmur. CHEST: Clear to auscultation. No crepitation or rhonchi. ABDOMEN: Distended, soft, nontender. No guarding or rigidity. No organomegaly. Hernial orifices intact. Bowel sounds normal. NEUROLOGIC: She was awake, alert, responding appropriately. Cranial nerves intact. She moves extremities without difficulty. She ambulates without assistance or assistive devices. Her intake over the last 24 hours was 3000, no output was recorded. LABORATORY DATA: Her lab work showed a white cell count 6700, hemoglobin 12.8, hematocrit 37, MCV 88 and platelet count of 135,000. Her chemistry this morning showed a serum sodium 139, potassium 4.6, chloride 107, bicarbonate was 26, anion gap of 6, BUN 20, creatinine 1.2. Estimated GFR was 45 mL per minute. Her glucose was 92. Calcium was 8.8. Total bilirubin, AST, ALT, alkaline phosphatase were normal. Total protein was 6.8, albumin was 3.5. Her serum triglycerides were 229 mg/dL. Total cholesterol is 159. LDL cholesterol was 82, VLDL was 45 and non-HDL cholesterol was 127. HDL cholesterol 32 and the ratio was 4. HOME MEDICATIONS: She will be discharged home to continue on acetaminophen 650 mg every 4 hours as needed, alprazolam 0.25 mg 3 times a day, aspirin 81 mg once a day, atorvastatin 40 mg at bedtime, carvedilol 12.5 mg twice a day, citalopram hydrobromide 10 mg p.o. daily, Plavix 75 mg daily, fenofibrate nanocrystallized 145 mg at bedtime, gabapentin 100 mg twice a day, Lantus insulin 80 units at bedtime, insulin lispro 35 units 3 times a day before meals, levothyroxine 100 mcg once a day, magnesium oxide 400 mg once a day, metolazone 5 mg once a day, Protonix 40 mg daily, potassium chloride 20 mEq daily, spironolactone 25 mg daily. Her furosemide was cut down to 20 twice a day and losartan was discontinued. FINAL DISCHARGE DIAGNOSES: 1. Acute renal failure, improved. Her BUN and creatinine came down to 20/1.2. 2. Chronic systolic heart failure, [place] [employer] class II to III compensated. 3. Nonischemic cardiomyopathy/ischemic cardiomyopathy, status post ICD. 4. Coronary artery disease; however, she is angina free. 5. Hypertension, well controlled. 6. Hyperlipidemia, on statin. 7. Suboptimally controlled type 2 diabetes. PLAN: The patient is advised to talk to her primary care physician to achieve better control of her blood sugar. NABILA HARDING MD DR: COLEMAN/barak JOB#: [id number] / [id number]
== END 2016-07-31 17:45 | disposition home or self-care (01) | DRG 682 ==
LOC: ER 13:22 → 1 SOUTH 17:17
PROVIDERS: ADMIT Internal Medicine; ATTEND Internal Medicine
DX: N17.0 Acute kidney failure with tubular necrosis (principal); E11.00 Type 2 diabetes mellitus with hyperosmolarity without nonketotic hyperglycemic-hyperosmolar coma (NKHHC); I13.0 Hypertensive heart and chronic kidney disease with heart failure and stage 1 through stage 4 chronic kidney disease, or unspecified chronic kidney disease; I50.22 Chronic systolic (congestive) heart failure; E11.649 Type 2 diabetes mellitus with hypoglycemia without coma; E11.22 Type 2 diabetes mellitus with diabetic chronic kidney disease; E11.65 Type 2 diabetes mellitus with hyperglycemia; E78.5 Hyperlipidemia, unspecified; E86.0 Dehydration; E87.6 Hypokalemia; I95.9 Hypotension, unspecified; I25.119 Atherosclerotic heart disease of native coronary artery with unspecified angina pectoris; E86.1 Hypovolemia; K43.9 Ventral hernia without obstruction or gangrene; I25.5 Ischemic cardiomyopathy; N18.9 Chronic kidney disease, unspecified; Z90.710 Acquired absence of both cervix and uterus; Z95.810 Presence of automatic (implantable) cardiac defibrillator; Z98.61 Coronary angioplasty status; Z90.722 Acquired absence of ovaries, bilateral
CPT/HCPCS: 36415; 71010; 76700; 80048; 80053; 80061; 81001; 82550; 82947; 83036; 83690; 83735; 83880; 84484; 85027; 85379; 85610; 85730; 93005; 94640; 96361; 96365; 96366; 96375; J1815; J3480; J7620; 97110; 97530; 99285-25; J7030

== ENCOUNTER → 2016-08-05 | Outpatient (CLI) | payer MEDICARE, BC ==
[2016-07-31 16:28] VITALS: BP 113/74
[~2016-08-05] MED LIST changes: +METO5TAB4 PO
[2016-08-05 10:23] LABS: CALCIUM 8.8 mg/dL (8.5-10.1); CREATININE 1.4 mg/dL (0.6-1.0); GFR 37.4; POTASSIUM 4.1 mmol/L (3.5-5.1)
== END | disposition home or self-care (01) ==
LOC: LAB 09:42
PROVIDERS: ATTEND Internal Medicine Cardiovascular Disease
DX: I50.9 Heart failure, unspecified (principal)
CPT/HCPCS: 36415; 80048; 83880

== ENCOUNTER → 2016-08-08 | Outpatient (CLI) | payer MEDICARE, BC ==
[2016-07-31 16:28] VITALS: BP 113/74
--- NOTE | 2016-08-08 14:01 | RAD ---
Lumbar spine, 5 views, 08/08/2016: History: Low back and hip pain The bony structures are demineralized. The lumbar vertebral heights are well-maintained. The intervertebral disc spaces are well preserved. There are moderate degenerative changes involving the facet joints bilaterally in the lower lumbar spine. There is no evidence of spondylolysis. Aortoiliac calcific plaquing is present. IMPRESSION: 1. Moderate facet joint arthropathy in the lower lumbar spine. 2. No acute bony abnormality is detected. Left hip, 2 views, 08/08/2016: History: Hip pain No fracture or dislocation is identified. The left hip joint is well maintained. Femoral arterial calcifications are noted. IMPRESSION: No acute left hip abnormality is detected.
== END | disposition home or self-care (01) ==
LOC: DXRADRC 12:07
PROVIDERS: ATTEND Physician Assistant Medical
DX: M25.552 Pain in left hip (principal); M54.5 Low back pain; G89.29 Other chronic pain
CPT/HCPCS: 72110; 73502

== ENCOUNTER → 2016-08-20 | Outpatient (CLI) | payer MEDICARE, BC ==
[2016-07-31 16:28] VITALS: BP 113/74
[2016-08-20 07:14] LABS: CALCIUM 8.7 mg/dL (8.5-10.1); CREATININE 1.3 mg/dL (0.6-1.0); GFR 40.7; POTASSIUM 4.2 mmol/L (3.5-5.1)
== END | disposition home or self-care (01) ==
LOC: LAB 06:46
PROVIDERS: ATTEND Internal Medicine Cardiovascular Disease
DX: I42.9 Cardiomyopathy, unspecified (principal)
CPT/HCPCS: 36415; 80048

== ENCOUNTER → 2016-10-01 | Outpatient (CLI) | payer MEDICARE, BC ==
--- NOTE | 2016-10-01 08:50 | RAD ---
Indication productive cough for 4 days. Frontal and lateral views of the chest were obtained and are compared to an examination 07/29/2016. There is mild cardiomegaly appearing similar. There is no consolidated pneumonia. Significant pleural fluid is not present. There is no pneumothorax. Defibrillating and bipolar cardiac pacing device is noted. A significant change compared to the prior exam is not seen. IMPRESSION: No acute or focal process is seen in the chest
== END | disposition home or self-care (01) ==
LOC: DXRADRC 07:56
PROVIDERS: ATTEND Physician Assistant Medical
DX: R05 Cough (principal)
CPT/HCPCS: 71020

== ENCOUNTER → 2016-10-10 | Outpatient (CLI) | payer MEDICARE, BC ==
[2016-10-10 09:30] LABS: BASO % 1 % (0-3); EOS # 0.1 x10^3/uL (0.0-0.7); EOS % 1 % (0-3); HEMATOCRIT 39.6 % (36.0-47.0); HEMOGLOBIN 13.2 g/dL (12.0-15.5); LYMPH # 1.9 x10^3/uL (1.0-4.8); LYMPH % 29 % (24-48); MEAN CORPUSCULAR HEMOGLOBIN 30 pg (25-35); MEAN CORPUSCULAR HGB CONC 33 g/dL (31-37); MEAN CORPUSCULAR VOLUME 91 fL (79-100); MONO # 0.4 x10^3/uL (0.0-1.1); MONO % 6 % (0-9); NEUT # 4.1 x10^3uL (1.8-7.7); NEUT % 63 % (31-73); PLATELET COUNT 176 x10^3/uL (140-400); RED BLOOD COUNT 4.34 x10^6/uL (3.50-5.40); RED CELL DISTRIBUTION WIDTH 13.3 % (11.5-14.5); WHITE BLOOD COUNT 6.6 x10^3/uL (4.0-11.0)
[2016-10-10 09:40] LABS: ALBUMIN 3.6 g/dL (3.4-5.0); ALBUMIN/GLOBULIN RATIO 1.1 (1.0-1.7); CALCIUM 8.5 mg/dL (8.5-10.1); CREATININE 1.6 mg/dL (0.6-1.0); POTASSIUM 4.4 mmol/L (3.5-5.1); TOTAL BILIRUBIN 0.4 mg/dL (0.2-1.0); TOTAL PROTEIN 6.8 g/dL (6.4-8.2)
[2016-10-11 02:07] LABS: HEMOGLOBIN A1C 7.8 % (4.8-5.6)
== END | disposition home or self-care (01) ==
LOC: LAB 08:48
PROVIDERS: ATTEND Physician Assistant Medical
DX: I50.9 Heart failure, unspecified (principal); E11.9 Type 2 diabetes mellitus without complications
CPT/HCPCS: 36415; 80053; 83036; 85025

== ENCOUNTER → 2016-10-10 | Outpatient (CLI) | payer MEDICARE, BC ==
[2016-10-10 09:34] LABS: CALCIUM 8.6 mg/dL (8.5-10.1); CREATININE 1.7 mg/dL (0.6-1.0); GFR 29.8; POTASSIUM 4.4 mmol/L (3.5-5.1)
== END | disposition home or self-care (01) ==
LOC: LAB 08:52
PROVIDERS: ATTEND Internal Medicine Cardiovascular Disease
DX: I42.9 Cardiomyopathy, unspecified (principal)
CPT/HCPCS: 36415; 80048

== ENCOUNTER 2016-10-26 23:08 | Inpatient (IN) | payer MEDICARE, BC ==
[~2016-10-26] VITALS: Ht 160 cm; Wt 95.1 kg
--- NOTE | 2016-10-26 23:16 | ED.ADGEN ---
Past History Past Medical History: Anxiety, CAD, Cancer, CHF, COPD, Diabetes, GERD, High Cholesterol, Hypertension, MO, Other Past Surgical History: Cancer Surgery, Hysterectomy, Pacemaker, Tonsillectomy, Other Smoking: Non-smoker Alcohol Use: Occasionally Drug Use: None Adult General Chief Complaint Chief Complaint ".. I ve been fighting this for a months.. but my wheezing has gotten worse.. been on two courses of anti biotics..." HPI HPI Patient is a 71 year old female who presents with above hx and complaints . Pt. reports dyspnea and generalized discomfort more tonight . Pt. follows with Dr. Aakash mccurdy, and Adam. Radiology Pt. has past significant medical hx with COPD, CHF, Lt. mastectomy for cancer.. Patient states she's undergone 2 courses of antibiotics no improvement. Patient has somewhat chronic cough that is minimally productive. She reports recent weight gain and leg swelling. Patient states she's been compliant for meds. No recent travel. No history of specific ill contacts. Review of Systems Review of Systems Constitutional: Complains fever or chills [] Eyes: Denies change in visual acuity, redness, or eye pain [] HENT: Denies nasal congestion or sore throat [] Respiratory: Complaints cough or shortness of breath [] Cardiovascular: No additional information not addressed in HPI [] GI: Denies abdominal pain, nausea, vomiting, bloody stools or diarrhea [] : Denies dysuria or hematuria [] Musculoskeletal: Denies back pain or joint pain [] Integument: Denies rash or skin lesions [] Neurologic: Denies headache, focal weakness or sensory changes [] Endocrine: Denies polyuria or polydipsia [] Family History Family History Noncontributory Current Medications Current Medications Current Medications Medications (Trade) Dose Ordered Sig/Brian Start Time Stop Time Status Last Admin Dose Admin Acetaminophen (Tylenol) 1,000 mg 1X ONCE 10/27/16 00:30 10/27/16 00:31 DC 10/27/16 00:26 1,000 MG Albuterol/ Ipratropium (Duoneb) 3 ml Q4HRS W/A 10/27/16 06:00 Aspirin (Kyree Aspirin) 325 mg 1X ONCE 10/26/16 23:45 10/26/16 23:46 DC 10/26/16 23:56 325 MG Azithromycin (Zithromax) 500 mg DAILY 10/27/16 09:00 10/30/16 08:59 Ceftriaxone Sodium 1 gm/ Sodium Chloride 50 ml @ 100 mls/hr Q24H 10/27/16 23:00 Ceftriaxone Sodium (Rocephin) 1 gm STK-MED ONCE 10/27/16 00:50 10/27/16 00:51 DC Enoxaparin Sodium (Lovenox 100mg Syringe) 100 mg 1X ONCE 10/27/16 09:00 10/27/16 09:01 Furosemide (Lasix) 40 mg 1X ONCE 10/26/16 23:45 10/26/16 23:46 DC 10/26/16 23:56 40 MG Methylprednisolone Sodium Succinate (SOLU-Medrol 125MG VIAL) 125 mg 1X ONCE 10/27/16 00:00 10/27/16 00:01 DC 10/26/16 23:57 125 MG Prednisone (Prednisone) 40 mg DAILY 10/27/16 09:00 Sodium Chloride 50 ml @ As Directed STK-MED ONCE 10/27/16 00:50 10/27/16 00:51 DC Allergies Allergies Allergies Coded Allergies Type Severity Reaction Last Updated Verified No Known Drug Allergies 07/29/16 No Physical Exam Physical Exam Constitutional: Moderately acute distress, non-toxic appearance. [] HENT: Normocephalic, atraumatic, bilateral external ears normal, oropharynx moist, no oral exudates, nose normal. [JVD at 30 Eyes: PERRLA, EOMI, conjunctiva normal, no discharge. [] Neck: Normal range of motion, no tenderness, supple, no stridor. [] Cardiovascular: Tachycardia Heart rate regular rhythm, no murmur. Patient per monitor-not currently paced rhythm Lungs & Thorax: Bilateral breath sounds equal apex scattered wheezing and occasional rhonchi auscultation [has mastectomy scar left. Pacer defibrillator right Abdomen: Bowel sounds normal, soft, no tenderness, no masses, no pulsatile masses. Old surgery scar Skin: Warm, dry, no erythema, no rash. Poor turgor Back: No tenderness, no CVA tenderness. [] Extremities: No tenderness, no cyanosis, no clubbing, ROM intact, 1-2+ ankle edema. No cording Neurologic: Alert and oriented X 3, normal motor function, normal sensory function, no focal deficits noted. [] Psychologic: Affect normal, judgement normal, mood normal. [] Current Patient Data Vital Signs Vital Signs Date Time Temp Pulse Resp B/P (MAP) Pulse Ox O2 Delivery O2 Flow Rate FiO2 10/27/16 00:06 Nasal Cannula 2.0 10/26/16 23:15 98.5 92 26 95 Lab Results Laboratory Tests Test 10/26/16 23:30 10/27/16 00:15 Prothrombin Time 10.5 SEC (9.4-11.4) Prothrombin Time INR 1.0 (0.9-1.1) PTT 21 SEC (23-33) L D-Dimer (Sue) 0.76 mg/L (0.00-0.50) H Sodium Level 138 mmol/L (136-145) Potassium Level 4.3 mmol/L (3.5-5.1) Chloride Level 104 mmol/L (98-107) Carbon Dioxide Level 25 mmol/L (21-32) Anion Gap 9 (6-14) Blood Urea Nitrogen 18 mg/dL (7-20) Creatinine 1.3 mg/dL (0.6-1.0) H Estimated GFR (Cockcroft-Gault) 40.6 BUN/Creatinine Ratio 14 (6-20) Glucose Level 188 mg/dL (70-99) H Calcium Level 8.2 mg/dL (8.5-10.1) L Magnesium Level 1.6 mg/dL (1.8-2.4) L Total Bilirubin 0.5 mg/dL (0.2-1.0) Aspartate Amino Transferase (AST) 25 U/L (15-37) Alanine Aminotransferase (ALT) 40 U/L (14-59) Alkaline Phosphatase 57 U/L (46-116) Troponin I Quantitative < 0.017 ng/mL (0-0.055) XB-Ciy-V-Type Natriuretic Peptide 354 pg/mL (0-124) H Total Protein 6.5 g/dL (6.4-8.2) Albumin 3.5 g/dL (3.4-5.0) Albumin/Globulin Ratio 1.2 (1.0-1.7) Urine Collection Type Unknown Urine Color Yellow Urine Clarity Hazy Urine pH 5.5 Urine Specific [place] 1.020 Urine Protein Neg (NEG-TRACE) Urine Glucose (UA) Neg mg/dL (NEG) Urine Ketones (Stick) Neg mg/dL (NEG) Urine Blood Neg (NEG) Urine Nitrite Neg (NEG) Urine Bilirubin Neg (NEG) Urine Urobilinogen Dipstick 0.2 mg/dL (0.2 mg/dL) Urine Leukocyte Esterase Neg (NEG) Urine RBC Rare /HPF (0-2) Urine WBC Rare /HPF (0-4) Urine Squamous Epithelial Cells Many /LPF Urine Bacteria Mod /HPF (0-FEW) EKG EKG My interpretation EKG shows a sinus rhythm at 94. No findings of acute STEMI. Has some nonspecific contour abnormalities anterior septal region[] Radiology/Procedures Radiology/Procedures My interpretation of chest x-ray shows cardiomegaly with some increased cephalization. Some blunting of the closed phrenic angles. Somewhat increased cephalization as compared to x-ray of 08/27/2015[] Course & Med Decision Making Course & Med Decision Making Pertinent Labs and Imaging studies reviewed. (See chart for details) Discussed presentation, testing and treatment plan with [] Final Impression Final Impression 1. COPD exacerbation 2. Acute on Chronic Resp. Failure 3. Diabetic 4. Renal insuf.- Elevated Creat. 5. CHF 6. Elevated D-dimer. [] Problems: Dragon Disclaimer Dragon Disclaimer This electronic medical record was generated, in whole or in part, using a voice recognition dictation system. WILLIAMS CAST MD Oct 26, 2016 23:16
[2016-10-26] MEDS ORDERED: ASPIRIN 325 MG TABLET PO ONE (23:45)
[2016-10-26] MEDS ORDERED: FUROSEMIDE 40 MG/4 ML VIAL IVP ONE (23:45)
[2016-10-27] VITALS (7 sets, daily range): BP systolic 110–128; BP diastolic 62–72
[2016-10-27] MEDS ORDERED: methylPREDNISolone SOD SUCC PF 125 MG/2 ML VIAL. IV ONE
[2016-10-27 00:14] LABS: ALBUMIN 3.5 g/dL (3.4-5.0); ALBUMIN/GLOBULIN RATIO 1.2 (1.0-1.7); CALCIUM 8.2 mg/dL (8.5-10.1); CREATININE 1.3 mg/dL (0.6-1.0); GFR 40.6; MAGNESIUM 1.6 mg/dL (1.8-2.4); POTASSIUM 4.3 mmol/L (3.5-5.1); TOTAL BILIRUBIN 0.5 mg/dL (0.2-1.0); TOTAL PROTEIN 6.5 g/dL (6.4-8.2)
[2016-10-27] MEDS ORDERED: IPRATRPIUM/ALBUTEROL 0.5/2.5MG 3 ML NEBU. NEB ONE (00:15)
[2016-10-27] MEDS ORDERED: ACETAMINOPHEN 500 MG TABLET PO ONE (00:30)
[2016-10-27] MEDS ORDERED: IV NORMAL SALINE 50ML 50 ML ONE (00:50)
[2016-10-27] MEDS ORDERED: cefTRIAXone SODIUM 1 GM VIAL IV ONE (00:50)
[2016-10-27 00:52] LABS: COLOR,URINE YELLOW
[2016-10-27 00:53] LABS: BACTERIA,URINE MOD /HPF (0-FEW); BILIRUBIN,URINE NEG (NEG); CLARITY,URINE HAZY; GLUCOSE,URINE NEG (NEG); NITRITE,URINE NEG (NEG); RBC,URINE RARE /HPF (0-2); SQUAMOUS EPITHELIAL CELL,UR MANY /LPF; UROBILINOGEN,URINE 0.2 mg/dL (0.2 mg/dL); WBC,URINE RARE /HPF (0-4)
[2016-10-27] MEDS ORDERED: AZITHROMYCIN 250 MG TABLET. PO ONE (01:00)
[2016-10-27] MEDS ORDERED: ENOXAPARIN ** NOTE DOSE ** SYRINGE SQ ONE ×2 (01:00→09:00)
[2016-10-27 01:17] LABS: BASO % 1 % (0-3); EOS # 0.1 x10^3/uL (0.0-0.7); EOS % 1 % (0-3); HEMATOCRIT 40.5 % (36.0-47.0); HEMOGLOBIN 13.3 g/dL (12.0-15.5); LYMPH # 0.7 x10^3/uL (1.0-4.8); LYMPH % 13 % (24-48); MEAN CORPUSCULAR HEMOGLOBIN 30 pg (25-35); MEAN CORPUSCULAR HGB CONC 33 g/dL (31-37); MEAN CORPUSCULAR VOLUME 91 fL (79-100); MONO # 0.6 x10^3/uL (0.0-1.1); MONO % 11 % (0-9); NEUT # 4.3 x10^3uL (1.8-7.7); NEUT % 75 % (31-73); PLATELET COUNT 136 x10^3/uL (140-400); RED BLOOD COUNT 4.47 x10^6/uL (3.50-5.40); RED CELL DISTRIBUTION WIDTH 13.7 % (11.5-14.5); WHITE BLOOD COUNT 5.7 x10^3/uL (4.0-11.0)
--- NOTE | 2016-10-27 04:45 | EKG ---
[address] [address] Test Date: 2016-10-26 Test Time: 23:41:34 Pat Name: LAURE SIERRA Department: Room: 105 A Gender: F [employer]: AMY : 1945 Requested By: WILLIAMS CAST Order Number: [id number] Reading MD: Ike Grant Measurements Intervals [place] Rate: 94 P: 0 OK: 140 QRS: 16 QRSD: 78 T: 31 QT: 376 QTc: 476 Interpretive Statements SINUS RHYTHM CONSISTENT WITH ANTEROSEPTAL INFARCT Electronically Signed On 10-29-2016 10:20:48 CDT by Ike Grant
[2016-10-27] MEDS: IPRATRPIUM/ALBUTEROL 0.5/2.5MG 3 ML NEBU. NEB SCH ×5 (05:20→22:00)
[2016-10-27 05:42] LABS: BASO % 0 % (0-3); EOS % 0 % (0-3); HEMATOCRIT 42.8 % (36.0-47.0); LYMPH # 0.5 x10^3/uL (1.0-4.8); LYMPH % 11 % (24-48); MEAN CORPUSCULAR HEMOGLOBIN 30 pg (25-35); MEAN CORPUSCULAR HGB CONC 33 g/dL (31-37); MEAN CORPUSCULAR VOLUME 92 fL (79-100); MONO # 0.1 x10^3/uL (0.0-1.1); MONO % 3 % (0-9); NEUT # 4.1 x10^3uL (1.8-7.7); NEUT % 86 % (31-73); PLATELET COUNT 139 x10^3/uL (140-400); RED BLOOD COUNT 4.64 x10^6/uL (3.50-5.40); RED CELL DISTRIBUTION WIDTH 13.4 % (11.5-14.5); WHITE BLOOD COUNT 4.7 x10^3/uL (4.0-11.0)
[2016-10-27 06:02] LABS: ALBUMIN 3.8 g/dL (3.4-5.0); ALBUMIN/GLOBULIN RATIO 1.2 (1.0-1.7); CALCIUM 8.6 mg/dL (8.5-10.1); CREATININE 1.6 mg/dL (0.6-1.0); POTASSIUM 4.4 mmol/L (3.5-5.1); TOTAL BILIRUBIN 0.4 mg/dL (0.2-1.0)
[2016-10-27] MEDS: ACETAMINOPHEN 500 MG TABLET PO PRN (06:14)
[2016-10-27] MEDS: predniSONE 20 MG TABLET PO SCH (08:20)
[2016-10-27] MEDS: AZITHROMYCIN 250 MG TABLET. PO SCH (08:21)
--- NOTE | 2016-10-27 08:36 | RAD ---
Examination: Single frontal view of the chest History: History of chest pain, dyspnea, wheezing. Comparison: 10/01/2016 Findings; The cardiomediastinal silhouette demonstrates mild cardiomegaly. A right-sided pacer ICD is identified. There is mild prominent appearing bilateral interstitial lung markings likely mild congestive changes. Impression: Mild cardiomegaly with mild prominent appearing bilateral interstitial lung markings likely mild congestive changes.
[2016-10-27] MEDS: INSULIN ASPART 300 UNITS/3 ML INSULN.PEN SQ SCH ×3 (08:42→17:05)
[2016-10-27] MEDS: ASPIRIN ENTERIC COATED 81 MG TABLET.DR. PO SCH (10:57)
[2016-10-27] MEDS: SPIRONOLACTONE 25 MG TABLET PO SCH (10:57)
[2016-10-27] MEDS: CARVEDILOL 12.5 MG TABLET PO SCH ×2 (10:58→17:09)
[2016-10-27] MEDS: CITALOPRAM 10 MG TABLET. PO SCH (10:58)
[2016-10-27] MEDS: SACUBITRIL/VALSARTAN 49/51MG TABLET. PO SCH ×2 (10:59→20:07)
[2016-10-27] MEDS: GABAPENTIN 100 MG CAPSULE. PO SCH ×2 (10:59→20:06)
[2016-10-27] MEDS: PANTOPRAZOLE 40 MG TABLET. PO SCH (10:59)
[2016-10-27] MEDS: CLOPIDOGREL BISULFATE 75 MG TABLET PO SCH (11:00)
[2016-10-27] MEDS: ALPRAZolam 0.25 MG TABLET PO PRN (11:00)
[2016-10-27] MEDS: FUROSEMIDE 20 MG TABLET PO PRN (11:00)
--- NOTE | 2016-10-27 13:38 | HP ---
ADMIT DATE: 10/27/2016 HISTORY OF PRESENT ILLNESS: The patient is a 71-year-old female patient who came to the Emergency Room complaining of shortness of breath, chest tightness, cough, stuffy nose, but apparently has been treated ____ antibiotic treatment as an outpatient twice. She was initially treated 3-10 days with a course of ciprofloxacin and followed by [facility] without much improvement and was brought to the Emergency Room yesterday with a chronic cough. She also complained of weight gain and leg swelling has also had orthopnea and occasional paroxysmal nocturnal dyspnea. Denied any chills, rigors, or fever. Denied any chest pain. She was evaluated in the Emergency Room and was found to be admitted with COPD exacerbation, [id number] respiratory failure, congestive heart failure, and chronic renal insufficiency. She was continued on all her medication and started on Rocephin and Zithromax. PAST MEDICAL HISTORY: Significant for coronary artery disease status post PCI. 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 She has AICD for primary prevention for chronic systolic congestive heart failure. PAST SURGICAL HISTORY: Significant for total abdominal hysterectomy, bilateral salpingo-oophorectomy, left mastectomy and ICD implantation. FAMILY HISTORY: Noncontributory. 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 She does not smoke, drink alcohol or use any recreational drugs. She lives in her own normally fairly independent. ALLERGIES: She is allergic to PENICILLIN and GLARGINE. MEDICATIONS: She is currently on following medications: She is on Tylenol 650 mg every 4 hours, alprazolam 0.5 mg 3 times a day, aspirin 81 mg once a day, atorvastatin calcium 40 mg at bedtime, carvedilol 12.5 mg b.i.d., citalopram hydrobromide 10 mg daily. She is on Plavix 75 mg once a day, fenofibrate 145 mg once a day, furosemide 20 mg p.o. b.i.d., gabapentin 100 mg p.o. b.i.d., Lantus insulin 8 units at bedtime. Humalog insulin 35 units subcutaneously before meals, levothyroxine sodium, Synthroid 100 mcg daily, magnesium oxide 400 mg daily, Protonix 40 mg daily, potassium chloride 20 mEq daily, spironolactone 25 mg daily. REVIEW OF SYSTEMS: As per history of present illness. PHYSICAL EXAMINATION: GENERAL: On arrival to the Emergency Room, the patient was pale, but not jaundiced, cyanosis, lymphadenopathy or thyromegaly. No jugular venous distention, but mild bilateral lower limb edema. VITAL SIGNS: Her heart rate was 92, blood pressure was 127/55, his head temperature was 98.5, respiratory rate was 26 and oxygen saturation was 95% on 2 liters of oxygen. HEAD, EYES, EARS, NOSE AND THROAT: Showed normocephalic, atraumatic. NECK: Supple. HEART: Showed normal first and second heart sounds with no gallop, rub, or murmur. CHEST: Shows central trachea, equally reduced expansion, reduced air entry, vesicular sounds. I could not really appreciate any rhonchi. She has crepitation mostly in the right side posteriorly. ABDOMEN: Distended, soft, nontender. No guarding or rigidity. No organomegaly. Hernial orifices intact. Bowel sounds normal. NEUROLOGIC: She was awake, alert, responding appropriately. All cranial nerves intact. EXTREMITIES: She moves extremities without difficulty. She normally ambulates without assistance or assistive devices. LABORATORY DATA: Her lab work in the Emergency Room showed a serum sodium 138, potassium 4.3, chloride 104, bicarbonate 25, anion gap of 9, BUN 18, creatinine 1.3, estimated GFR was 40 mL per minute. Her glucose was 188, calcium was 8.2, magnesium was 1.6. Total bilirubin, AST, ALT, alkaline phosphatase were normal. Her beta natriuretic peptide was 357. Total protein was 6.5, albumin was 3.5. Her first set of cardiac enzymes showed troponin to be less than 0.017. Her white cell count was 5700, hemoglobin 13.3, hematocrit 40.5, MCV 91, and platelet count of 136,000 with a manual differential showed 75% polymorphs, 15% lymphocytes and 11% monocytes. Her prothrombin time was 10.5, INR 1, aPTT was 21. D-dimer was 0.76. Her urinalysis showed the urine was yellow, hazy with a pH of 5.5, specific gravity of 1.020. The urine was negative for protein, glucose, ketones, blood, nitrite and leukocyte esterase. There are rare RBCs, rare WBC, but moderate amount of bacteria. Her chest x-ray showed that the cardiomediastinal silhouette demonstrates mild cardiomegaly, right-sided pacer ICD is identified. There is mild prominent appearing bilateral interstitial lung markings likely due to mild congestive heart failure. ASSESSMENT AND PLAN: The patient was admitted and was given Lovenox as well as ceftriaxone 1 gram together with Zithromax and treated with Lasix 40 mg as well as started on azithromycin. We will continue with ceftriaxone and Zithromax. Continue to monitor her blood sugar and adjust insulin as needed. Continue with Entresto, spironolactone, as well as furosemide and daily steroids. We will check her weight daily and monitor her lab work, however, we consulted the Cardiology team to assist with her management. NABILA HARDING MD DR: COLEMAN/barak JOB#: [id number] / [id number]
[2016-10-27] MEDS: LEVOTHYROXINE 100 MCG TABLET PO SCH (14:02)
--- NOTE | 2016-10-27 15:51 | RAD ---
Examination: Ultrasound bilateral lower extremity venous duplex History: History of elevated d-dimer, shortness of breath. Comparison: None Technique: Grayscale, color Doppler 2-D, spectral waveform analysis of the bilateral lower extremity venous system were performed Findings: The visualized common femoral vein, superior femoral vein, popliteal vein demonstrate normal compression and augmentation of flow. The visualized calf veins are patent. Impression: No evidence of deep venous thrombosis identified in the visualized bilateral lower extremity venous system.
--- NOTE | 2016-10-27 16:05 | PDOC2 ---
CONSULT Date of Admission DATE: 10/27/16 TIME: 15:56 Reason for Consult: Shortness of breath Referring Physician: Dr. Cobb Chief Complaint Dyspnea Source: Chart review, Patient Problem List Problems Medical Problems: (1) Respiratory failure Status: Acute History of Present Illness 71-year-old pleasant female with history of coronary artery disease, non- ischemic cardiomyopathy and peripheral vascular disease presented with persistent cough, nasal congestion and shortness of breath that did not improve with antibiotics as outpatient. She denied any chest pain, palpitations or syncope. Her symptoms improved since admission with one dose of intravenous Lasix and nebulizers. Past Medical History Nonischemic cardiomyopathy Coronary artery disease s/p PCI/stent to LAD Peripheral vascular disease s/p [employer] to bilateral SFAs Hypertension Hyperlipidemia Hypothyroidism COPD Diabetes mellitus type 2 Breast cancer Past Surgical History Hysterectomy Tonsillectomy Mastectomy Carpal tunnel release surgery AICD implantation Family History Breast cancer, hypertension and diabetes Social History Patient denied any smoking, alcohol or drug use Current Medications Current Medications Aspirin (Kyree Aspirin) 325 mg 1X ONCE PO Last administered on 10/26/16 23:56 ; Start 10/26/16 at 23:45; Stop 10/26/16 at 23:46; Status DC Furosemide (Lasix) 40 mg 1X ONCE IVP Last administered on 10/26/16 23:56; Start 10/26/16 at 23:45; Stop 10/26/16 at 23:46; Status DC Albuterol/ Ipratropium (Duoneb) 3 ml 1X ONCE NEB Last administered on 00:05; Start 10/27/16 at 00:15; Stop 10/27/16 at 00:16; Status DC Methylprednisolone Sodium Succinate (SOLU-Medrol 125MG VIAL) 125 mg 1X ONCE IV Last administered on 10/26/16 23:57; Start 10/27/16 at 00:00; Stop 10/27/16 at 00:01; Status DC Acetaminophen (Tylenol) 1,000 mg 1X ONCE PO Last administered on 10/27/16 00: 26; Start 10/27/16 at 00:30; Stop 10/27/16 at 00:31; Status DC Enoxaparin Sodium (Lovenox 100mg Syringe) 100 mg 1X ONCE SQ Last administered on 10/27/16 00:58; Start 10/27/16 at 01:00; Stop 10/27/16 at 01:01; Status DC Ceftriaxone Sodium 1 gm/ Sodium Chloride 50 ml @ 100 mls/hr 1X ONCE IV Last administered on 10/27/16 00:57; Start 10/27/16 at 01:00; Stop 10/27/16 at 01:29; Status DC Azithromycin (Zithromax) 500 mg 1X ONCE PO Last administered on 10/27/16 00:58 ; Start 10/27/16 at 01:00; Stop 10/27/16 at 01:01; Status DC Albuterol/ Ipratropium (Duoneb) 3 ml Q4HRS W/A NEB Last administered on 15:07; Start 10/27/16 at 06:00 Azithromycin (Zithromax) 500 mg DAILY PO Last administered on 10/27/16 08:21; Start 10/27/16 at 09:00; Stop 10/30/16 at 08:59 Ceftriaxone Sodium 1 gm/ Sodium Chloride 50 ml @ 100 mls/hr Q24H IV ; Start 10/27/16 at 23:00 Prednisone (Prednisone) 40 mg DAILY PO Last administered on 10/27/16 08:20; Start 10/27/16 at 09:00 Enoxaparin Sodium (Lovenox 100mg Syringe) 100 mg 1X ONCE SQ Last administered on 10/27/16 08:21; Start 10/27/16 at 09:00; Stop 10/27/16 at 09:01; Status DC Sodium Chloride 50 ml @ As Directed STK-MED ONCE .ROUTE ; Start 10/27/16 at 00:50 ; Stop 10/27/16 at 00:51; Status DC Ceftriaxone Sodium (Rocephin) 1 gm STK-MED ONCE IV ; Start 10/27/16 at 00:50; Stop 10/27/16 at 00:51; Status DC Acetaminophen (Tylenol) 1,000 mg PRN Q6HRS PRN PO MILD PAIN Last administered on 10/27/16 06:14; Start 10/27/16 at 06:00 Insulin Detemir (Levemir) 80 units QHS SQ ; Start 10/27/16 at 21:00 Insulin Aspart (NovoLOG) 35 units TIDAC SQ Last administered on 10/27/16 12:16 ; Start 10/27/16 at 08:30 Alprazolam (Xanax) 0.25 mg PRN TID PRN PO ANXIETY Last administered on 11:00; Start 10/27/16 at 10:15 Aspirin (Aspirin Enteric Coated) 81 mg DAILY PO Last administered on 10/27/16 10:57; Start 10/27/16 at 10:30 Carvedilol (Coreg) 12.5 mg BIDWMEALS PO Last administered on 10/27/16 10:58; Start 10/27/16 at 10:30 Citalopram Hydrobromide (CeleXA) 10 mg DAILY PO Last administered on 10/27/16 10:58; Start 10/27/16 at 10:30 Clopidogrel Bisulfate (Plavix) 75 mg DAILY PO Last administered on 10/27/16 11: 00; Start 10/27/16 at 10:30 Fenofibrate (Tricor) 145 mg HS PO ; Start 10/27/16 at 21:00 Furosemide (Lasix) 20 mg PRN BID PRN PO SWELLING Last administered on 10/27/16 11:00; Start 10/27/16 at 10:15 Gabapentin (Neurontin) 100 mg BID PO Last administered on 10/27/16 10:59; Start 10/27/16 at 10:30 Levothyroxine Sodium (Synthroid) 100 mcg DAILYAC PO Last administered on 14:02; Start 10/27/16 at 10:30 Pantoprazole Sodium (Protonix) 40 mg DAILY PO Last administered on 10/27/16 10: 59; Start 10/27/16 at 10:30 Spironolactone (Aldactone) 25 mg DAILY PO Last administered on 10/27/16 10:57; Start 10/27/16 at 10:30 Sacubitril/ Valsartan (Entresto 49 Mg-51 Mg) 2 tab BID PO Last administered on 10/27/16 10:59; Start 10/27/16 at 10:30 Guaifenesin (Mucinex Er) 600 mg BID PO Last administered on 10/27/16 13:19; Start 10/27/16 at 13:30 Budesonide (Pulmicort) 0.5 mg RTBID NEB ; Start 10/27/16 at 20:00 Montelukast Sodium (Singulair) 10 mg QHS PO ; Start 10/27/16 at 21:00 Active Scripts Active Furosemide 20 Mg Tablet 1 Tab PO BID PRN 30 Days Magnesium (Magnesium Oxide) 400 Mg Capsule 1 Cap PO DAILY Reported Lantus Solostar (Insulin Glargine,Hum.rec.anlog) 100 Unit/1 Ml Insuln.pen 80 Unit SQ QHS Last dose: 07/30/16 9 PM Next dose: 07/31/16 9 PM Spironolactone 25 Mg Tablet 25 Mg PO DAILY Last dose: 07/31/16 9 AM Next dose: 08/01/16 9 AM Synthroid (Levothyroxine Sodium) 100 Mcg Tablet 100 Mcg PO DAILYAC Last dose: 07/31/16 7 AM Next dose: 08/01/16 7 AM Plavix (Clopidogrel Bisulfate) 75 Mg Tablet 75 Mg PO DAILY Last dose: 07/31/16 9 AM Next dose: 08/01/16 9 AM Humalog (Insulin Lispro) 100 Unit/1 Ml Vial 35 Unit SQ TIDAC Last dose: 07/31/16 5 PM Next dose: 08/01/16 7 AM Citalopram Hbr (Citalopram Hydrobromide) 10 Mg Tablet 10 Mg PO DAILY Last dose: 07/31/16 9 AM Next dose: 08/01/16 9 AM Tylenol (Acetaminophen) 325 Mg Tablet 650 Mg PO Q4HRS PRN As Needed Potassium Chloride 20 Meq Tablet.er 20 Meq PO DAILY Last dose: 07/31/16 9 AM Next dose: 08/01/16 9 AM Pantoprazole Sodium 40 Mg Tablet.dr 40 Mg PO DAILY Last dose: 07/31/16 9 AM Next dose: 08/01/16 9 AM Gabapentin 100 Mg Capsule 100 Mg PO BID Last dose: 07/31/16 9 AM Next dose: 07/31/16 9 PM Fenofibrate (Fenofibrate Nanocrystallized) 145 Mg Tablet 145 Mg PO HS Last dose: 07/30/16 at 9 PM Next dose: 07/31/16 at 9 PM Carvedilol 12.5 Mg Tablet 12.5 Mg PO BID Last dose: 07/31/16 9 AM Next dose: 07/31/16 9 PM Atorvastatin Calcium 40 Mg Tablet 40 Mg PO HS Last dose: 07/30/16 at 9 PM Next dose: 07/31/16 at 9 PM Aspirin Ec (Aspirin) 81 Mg Tablet.dr 81 Mg PO DAILY last dose: 07/31/16 0900 next dose: 08/01/16 0900 Alprazolam 0.25 Mg Tablet 0.25 Mg PO TID PRN As needed Allergies: Coded Allergies: insulin glargine (Verified Allergy, Intermediate, 10/27/16) PSYCHOLOGICAL ROS: No: Hallucinations Eyes: No: Loss of vision HEENT: No: Epistaxis Respiratory: YES: Cough, Shortness of breath Cardiovascular: No: Chest Pain, Palpitations Gastrointestinal: No: Nausea, Vomiting, Diarrhea Neurological: No: Seizures Skin: No: Rash General: Alert, No acute distress HEENT: Atraumatic, PERRLA Lungs: Other (bilateral basal crepitations) Heart: Regular rate Abdomen: Soft, No tenderness Extremities: No edema Psych/Mental Status: Mood NL VITALS Vital Signs Date Time Temp Pulse Resp B/P (MAP) Pulse Ox O2 Delivery O2 Flow Rate FiO2 10/27/16 15:13 97.8 85 20 117/65 (82) 94 Nasal Cannula 2.0 Labs Laboratory Tests Test 10/26/16 23:30 10/27/16 00:15 10/27/16 01:38 10/27/16 05:25 White Blood Count 5.7 x10^3/uL (4.0-11.0) 4.7 x10^3/uL (4.0-11.0) Red Blood Count 4.47 x10^6/uL (3.50-5.40) 4.64 x10^6/uL (3.50-5.40) Hemoglobin 13.3 g/dL (12.0-15.5) 14.0 g/dL (12.0-15.5) Hematocrit 40.5 % (36.0-47.0) 42.8 % (36.0-47.0) Mean Corpuscular Volume 91 fL (79-100) 92 fL (79-100) Mean Corpuscular Hemoglobin 30 pg (25-35) 30 pg (25-35) Mean Corpuscular Hemoglobin Concent 33 g/dL (31-37) 33 g/dL (31-37) Red Cell Distribution Width 13.7 % (11.5-14.5) 13.4 % (11.5-14.5) Platelet Count 136 x10^3/uL (140-400) 139 x10^3/uL (140-400) Neutrophils (%) (Auto) 75 % (31-73) 86 % (31-73) Lymphocytes (%) (Auto) 13 % (24-48) 11 % (24-48) Monocytes (%) (Auto) 11 % (0-9) 3 % (0-9) Eosinophils (%) (Auto) 1 % (0-3) 0 % (0-3) Basophils (%) (Auto) 1 % (0-3) 0 % (0-3) Neutrophils # (Auto) 4.3 x10^3uL (1.8-7.7) 4.1 x10^3uL (1.8-7.7) Lymphocytes # (Auto) 0.7 x10^3/uL (1.0-4.8) 0.5 x10^3/uL (1.0-4.8) Monocytes # (Auto) 0.6 x10^3/uL (0.0-1.1) 0.1 x10^3/uL (0.0-1.1) Eosinophils # (Auto) 0.1 x10^3/uL (0.0-0.7) 0.0 x10^3/uL (0.0-0.7) Basophils # (Auto) 0.0 x10^3/uL (0.0-0.2) 0.0 x10^3/uL (0.0-0.2) Prothrombin Time 10.5 SEC (9.4-11.4) Prothromb Time International Ratio 1.0 (0.9-1.1) Activated Partial Thromboplast Time 21 SEC (23-33) D-Dimer (Sue) 0.76 mg/L (0.00-0.50) Sodium Level 138 mmol/L (136-145) 135 mmol/L (136-145) Potassium Level 4.3 mmol/L (3.5-5.1) 4.4 mmol/L (3.5-5.1) Chloride Level 104 mmol/L (98-107) 100 mmol/L (98-107) Carbon Dioxide Level 25 mmol/L (21-32) 27 mmol/L (21-32) Anion Gap 9 (6-14) 8 (6-14) Blood Urea Nitrogen 18 mg/dL (7-20) 21 mg/dL (7-20) Creatinine 1.3 mg/dL (0.6-1.0) 1.6 mg/dL (0.6-1.0) Estimated GFR (Cockcroft-Gault) 40.6 32.0 BUN/Creatinine Ratio 14 (6-20) 13 (6-20) Glucose Level 188 mg/dL (70-99) 438 mg/dL (70-99) Calcium Level 8.2 mg/dL (8.5-10.1) 8.6 mg/dL (8.5-10.1) Magnesium Level 1.6 mg/dL (1.8-2.4) Total Bilirubin 0.5 mg/dL (0.2-1.0) 0.4 mg/dL (0.2-1.0) Aspartate Amino Transf (AST/SGOT) 25 U/L (15-37) 24 U/L (15-37) Alanine Aminotransferase (ALT/SGPT) 40 U/L (14-59) 41 U/L (14-59) Alkaline Phosphatase 57 U/L (46-116) 64 U/L (46-116) Troponin I Quantitative < 0.017 ng/mL (0-0.055) RS-Bow-T-Type Natriuretic Peptide 354 pg/mL (0-124) Total Protein 6.5 g/dL (6.4-8.2) 7.0 g/dL (6.4-8.2) Albumin 3.5 g/dL (3.4-5.0) 3.8 g/dL (3.4-5.0) Albumin/Globulin Ratio 1.2 (1.0-1.7) 1.2 (1.0-1.7) Urine Collection Type Unknown Urine Color Yellow Urine Clarity Hazy Urine pH 5.5 Urine Specific [place] 1.020 Urine Protein Neg (NEG-TRACE) Urine Glucose (UA) Neg mg/dL (NEG) Urine Ketones (Stick) Neg mg/dL (NEG) Urine Blood Neg (NEG) Urine Nitrite Neg (NEG) Urine Bilirubin Neg (NEG) Urine Urobilinogen Dipstick 0.2 mg/dL (0.2 mg/dL) Urine Leukocyte Esterase Neg (NEG) Urine RBC Rare /HPF (0-2) Urine WBC Rare /HPF (0-4) Urine Squamous Epithelial Cells Many /LPF Urine Bacteria Mod /HPF (0-FEW) Glucose (Fingerstick) 174 mg/dL (70-99) Test 10/27/16 07:46 10/27/16 11:59 10/27/16 12:30 Glucose (Fingerstick) 387 mg/dL (70-99) 438 mg/dL (70-99) Troponin I Quantitative < 0.017 ng/mL (0-0.055) Assessment/Plan 1. Acute respiratory failure secondary to combination of acute COPD exacerbation, acute bronchitis and mild acute on chronic systolic heart failure. LVEF 25-30% on recent 2-D echocardiogram. Patient diuresed well with Lasix and her cardiomyopathy is clinically well compensated. Continue antibiotics per IM. Resume home medications for her nonischemic cardiomyopathy including entresto. 2. Coronary artery disease: Clinically stable and chest pain-free. 3. s/p AICD implantation: Recent device check showed normal function. Patient denied any ICD firing episodes. 4. Peripheral vascular disease: Stable without any claudication symptoms. 5. Hypertension: Well-controlled 6. Hyperlipidemia: Continue statins and fibrates 7. Diabetes mellitus type 2: Treated per IM Thank you for your consultation Problems: ADITI HUERTA MD Oct 27, 2016 16:05
[2016-10-27] MEDS: MONTELUKAST 10 MG TABLET. PO SCH (20:07)
[2016-10-27] MEDS: FENOFIBRATE NANOCRYSTALLIZED 145 MG TABLET PO SCH (20:07)
[2016-10-27] MEDS: INSULIN DETEMIR 300 UNITS/3 ML INSULN.PEN. SQ SCH (20:13)
[2016-10-27] MEDS: BUDESONIDE 0.5 MG/2 ML NEBU NEB SCH (21:54)
[2016-10-28] MEDS ORDERED: IV NORMAL SALINE 100ML 100 ML ONE (00:28)
[2016-10-28] MEDS: ACETAMINOPHEN 500 MG TABLET PO PRN (00:28)
[2016-10-28] MEDS: IPRATRPIUM/ALBUTEROL 0.5/2.5MG 3 ML NEBU. NEB SCH ×4 (05:03→20:48)
[2016-10-28 05:22] VITALS: BP 121/61
[2016-10-28 06:33] LABS: ALBUMIN 3.4 g/dL (3.4-5.0); ALBUMIN/GLOBULIN RATIO 1.1 (1.0-1.7); CALCIUM 8.4 mg/dL (8.5-10.1); CREATININE 1.2 mg/dL (0.6-1.0); GFR 44.5; TOTAL BILIRUBIN 0.2 mg/dL (0.2-1.0); TOTAL PROTEIN 6.4 g/dL (6.4-8.2)
[2016-10-28 06:36] LABS: HEMATOCRIT 38.1 % (36.0-47.0); HEMOGLOBIN 12.7 g/dL (12.0-15.5); RED BLOOD COUNT 4.19 x10^6/uL (3.50-5.40); RED CELL DISTRIBUTION WIDTH 13.4 % (11.5-14.5)
[2016-10-28] MEDS: SACUBITRIL/VALSARTAN 49/51MG TABLET. PO SCH ×2 (08:30→20:12)
[2016-10-28] MEDS: LEVOTHYROXINE 100 MCG TABLET PO SCH (08:30)
[2016-10-28] MEDS: predniSONE 20 MG TABLET PO SCH (08:30)
[2016-10-28] MEDS: PANTOPRAZOLE 40 MG TABLET. PO SCH (08:30)
[2016-10-28] MEDS: CITALOPRAM 10 MG TABLET. PO SCH (08:30)
[2016-10-28] MEDS: AZITHROMYCIN 250 MG TABLET. PO SCH (08:30)
[2016-10-28] MEDS: GABAPENTIN 100 MG CAPSULE. PO SCH ×2 (08:31→20:13)
[2016-10-28] MEDS: CLOPIDOGREL BISULFATE 75 MG TABLET PO SCH (08:31)
[2016-10-28] MEDS: ASPIRIN ENTERIC COATED 81 MG TABLET.DR. PO SCH (08:31)
[2016-10-28] MEDS: SPIRONOLACTONE 25 MG TABLET PO SCH (08:31)
[2016-10-28] MEDS: CARVEDILOL 12.5 MG TABLET PO SCH ×2 (08:31→17:00)
[2016-10-28] MEDS: INSULIN ASPART 300 UNITS/3 ML INSULN.PEN SQ SCH ×3 (08:33→17:04)
[2016-10-28] MEDS: BUDESONIDE 0.5 MG/2 ML NEBU NEB SCH ×2 (11:01→20:00)
[2016-10-28 12:09] VITALS: BP 121/61
[2016-10-28 16:21] VITALS: BP 149/73
[2016-10-28 19:00] VITALS: BP 115/64
[2016-10-28] MEDS: FENOFIBRATE NANOCRYSTALLIZED 145 MG TABLET PO SCH (20:13)
[2016-10-28] MEDS: MONTELUKAST 10 MG TABLET. PO SCH (20:13)
[2016-10-28] MEDS: INSULIN DETEMIR 300 UNITS/3 ML INSULN.PEN. SQ SCH (20:20)
[2016-10-28 22:41] VITALS: BP 123/74
[2016-10-29 00:06] LABS: HEMOGLOBIN A1C 7.8 % (4.8-5.6)
--- NOTE | 2016-10-29 00:50 | PN ---
DATE: 10/28/2016 SUBJECTIVE: The patient is sitting on the edge of the bed comfortably in no apparent distress. She continued to complain of cough and stated that she has coughed all night, bringing up scanty frothy sputum. Did also complain of wheezing last night, however. OBJECTIVE: GENERAL: On examining her today, she looked well and was clearly in no apparent respiratory distress, pale, but no jaundice, cyanosis, lymphadenopathy, or thyromegaly. No jugular venous distention. No lower limb edema. VITAL SIGNS: His heart rate was 83, blood pressure 121/61, temperature was 97.5, respiratory rate was 60 and oxygen saturation was 97% on 2 liters of oxygen. HEENT: Showed normocephalic, atraumatic. NECK: Supple. HEART: Showed normal first and second heart sounds with no gallop, rub or murmur. CHEST: Shows central trachea, equal bilateral expansion, air entry, vesicular sounds. I could not appreciate any crepitation or rhonchi. ABDOMEN: Distended, soft, nontender. NEUROLOGIC: She is awake, alert, responding appropriately. Cranial nerves intact. She moves extremities without difficulty. She ambulates without assistance or assistive devices. LABORATORY DATA: Showed a white cell count of 7000, hemoglobin 13, hematocrit 38, MCV 91, and platelet count of 144,000. Her chemistry showed a serum sodium of 136, potassium 4, chloride 102, bicarbonate 27, anion gap of 7, BUN 25, creatinine 1.2. Her estimated GFR was 44 mL per minute. Glucose ____, calcium was 8.4. Total bilirubin, AST, ALT, alkaline phosphatase were normal. Total protein was 6.4, albumin 3.4. TSH was 2.0960. Magnesium was 1.6, prothrombin time was 10.5, INR 1, aPTT was 21. D-dimer was 0.76. Urinalysis was unremarkable. So far her urine culture showed growth of 10,000-25,000 mixed urogenital megan. Blood cultures are still so far negative. ASSESSMENT: 1. Chronic bronchitis for which she is on ceftriaxone and Zithromax. 2. Congestive heart failure due to ischemic and cardiomyopathy with ejection fraction of 25%. The patient's x-ray showed she has mild cardiomegaly with mild prominent-appearing bilateral interstitial lung markings consistent with mild congestive heart failure for which she is already on Lasix 20 mg twice a day. Hypertension seems to be well controlled; type 2 diabetes seems to be also cough with controlled. PLAN: My plan is to continue with IV antibiotic in the form of ceftriaxone as well as oral Zithromax. Continue with bronchodilator and steroids. Continue with Lasix for today and if she is feeling much better tomorrow, she can be discharged home. NABILA HARDING MD DR: COLEMAN/barak JOB#: [id number] / [id number]
[2016-10-29] MEDS: ALPRAZolam 0.25 MG TABLET PO PRN ×2 (01:51→14:05)
[2016-10-29] MEDS ORDERED: LOPERAMIDE 2 MG CAPSULE PO PRN (03:30)
[2016-10-29 05:32] VITALS: BP 136/78
[2016-10-29] MEDS: FUROSEMIDE 20 MG TABLET PO PRN ×2 (05:36→10:56)
[2016-10-29] MEDS: IPRATRPIUM/ALBUTEROL 0.5/2.5MG 3 ML NEBU. NEB SCH ×3 (05:36→11:29)
[2016-10-29] MEDS: LEVOTHYROXINE 100 MCG TABLET PO SCH (05:37)
[2016-10-29 06:22] LABS: CALCIUM 8.9 mg/dL (8.5-10.1); CREATININE 1.1 mg/dL (0.6-1.0); GFR 49.2; MAGNESIUM 1.8 mg/dL (1.8-2.4)
[2016-10-29] MEDS: INSULIN ASPART 300 UNITS/3 ML INSULN.PEN SQ SCH ×2 (07:30→12:34)
[2016-10-29] MEDS: CITALOPRAM 10 MG TABLET. PO SCH (07:58)
[2016-10-29] MEDS: PANTOPRAZOLE 40 MG TABLET. PO SCH (07:59)
[2016-10-29] MEDS: CLOPIDOGREL BISULFATE 75 MG TABLET PO SCH (07:59)
[2016-10-29] MEDS: SPIRONOLACTONE 25 MG TABLET PO SCH (07:59)
[2016-10-29] MEDS: GABAPENTIN 100 MG CAPSULE. PO SCH (07:59)
[2016-10-29] MEDS: ASPIRIN ENTERIC COATED 81 MG TABLET.DR. PO SCH (08:00)
[2016-10-29] MEDS: AZITHROMYCIN 250 MG TABLET. PO SCH (08:00)
[2016-10-29] MEDS: predniSONE 20 MG TABLET PO SCH (08:00)
[2016-10-29] MEDS: CARVEDILOL 12.5 MG TABLET PO SCH (08:01)
[2016-10-29] MEDS: SACUBITRIL/VALSARTAN 49/51MG TABLET. PO SCH (08:02)
--- NOTE | 2016-10-29 09:32 | PDOC ---
PROGRESS NOTES Diagnosis Problem Problems Medical Problems: (1) Respiratory failure Status: Acute Assessment Problems Medical Problems: (1) Respiratory failure Status: Acute 1. Acute respiratory failure secondary to combination of acute COPD exacerbation, acute bronchitis and mild acute on chronic systolic heart failure. LVEF 25-30%. Patient diuresed well with Lasix initially. Up >2 liters by I/O over last 24 hours. Continue antibiotics per PCP. Continue home medications for her nonischemic cardiomyopathy including entresto. One does IV lasix today. 2. Coronary artery disease: Clinically stable and chest pain-free. 3. s/p AICD implantation: Recent device check showed normal function. Patient denied any ICD firing episodes. 4. Hypertension: Well-controlled 6. Hyperlipidemia: Continue current medications 7. Diabetes mellitus type 2: per PCP Problems: Subjective Continued cough and dyspnea on exertion. No chest pain, no congestive symptoms. No palpitations. Objective Vital Signs Date Time Temp Pulse Resp B/P (MAP) Pulse Ox O2 Delivery O2 Flow Rate FiO2 10/29/16 08:02 75 136/78 10/29/16 05:36 95 Room Air 10/29/16 05:32 97.7 20 10/28/16 19:40 2.0 Intake and Output 10/30/16 07:00 Intake Total 200 ml Balance 200 ml Intake Oral 200 ml # Voids 1 Abdomen: Normal bowel sounds, Soft Heart: Regular rate, Normal S1, Normal S2 Extremities: No cyanosis, Normal pulses, Other (trace edema) General: Alert, Oriented X3, Cooperative, No acute distress HEENT: Atraumatic, EOMI, Mucous membr. moist/pink Lungs: Other (few basilar crackles R>L) Neuro: Normal speech, Strength at 5/5 X4 ext Psych/Mental Status: Mental status NL, Mood NL Review of Relevant I have reviewed the following items junior (where applicable) has been applied. Labs Laboratory Tests Test 10/27/16 11:59 10/27/16 12:30 10/27/16 16:55 10/27/16 20:12 Glucose (Fingerstick) 438 mg/dL (70-99) 337 mg/dL (70-99) 270 mg/dL (70-99) Troponin I Quantitative < 0.017 ng/mL (0-0.055) Test 10/28/16 05:39 10/28/16 07:22 10/28/16 11:28 10/28/16 16:59 White Blood Count 7.0 x10^3/uL (4.0-11.0) Red Blood Count 4.19 x10^6/uL (3.50-5.40) Hemoglobin 12.7 g/dL (12.0-15.5) Hematocrit 38.1 % (36.0-47.0) Mean Corpuscular Volume 91 fL (79-100) Mean Corpuscular Hemoglobin 30 pg (25-35) Mean Corpuscular Hemoglobin Concent 33 g/dL (31-37) Red Cell Distribution Width 13.4 % (11.5-14.5) Platelet Count 144 x10^3/uL (140-400) Sodium Level 136 mmol/L (136-145) Potassium Level 4.0 mmol/L (3.5-5.1) Chloride Level 102 mmol/L (98-107) Carbon Dioxide Level 27 mmol/L (21-32) Anion Gap 7 (6-14) Blood Urea Nitrogen 25 mg/dL (7-20) Creatinine 1.2 mg/dL (0.6-1.0) Estimated GFR (Cockcroft-Gault) 44.5 BUN/Creatinine Ratio 21 (6-20) Glucose Level 273 mg/dL (70-99) Hemoglobin A1c 7.8 % (4.8-5.6) Calcium Level 8.4 mg/dL (8.5-10.1) Total Bilirubin 0.2 mg/dL (0.2-1.0) Aspartate Amino Transf (AST/SGOT) 16 U/L (15-37) Alanine Aminotransferase (ALT/SGPT) 33 U/L (14-59) Alkaline Phosphatase 54 U/L (46-116) Total Protein 6.4 g/dL (6.4-8.2) Albumin 3.4 g/dL (3.4-5.0) Albumin/Globulin Ratio 1.1 (1.0-1.7) Thyroid Stimulating Hormone (TSH) 2.060 uIU/mL (0.358-3.740) Glucose (Fingerstick) 244 mg/dL (70-99) 219 mg/dL (70-99) 227 mg/dL (70-99) Test 10/28/16 18:49 10/29/16 05:43 10/29/16 07:53 Glucose (Fingerstick) 312 mg/dL (70-99) 104 mg/dL (70-99) Sodium Level 140 mmol/L (136-145) Potassium Level 4.0 mmol/L (3.5-5.1) Chloride Level 102 mmol/L (98-107) Carbon Dioxide Level 31 mmol/L (21-32) Anion Gap 7 (6-14) Blood Urea Nitrogen 21 mg/dL (7-20) Creatinine 1.1 mg/dL (0.6-1.0) Estimated GFR (Cockcroft-Gault) 49.2 Glucose Level 116 mg/dL (70-99) Calcium Level 8.9 mg/dL (8.5-10.1) Magnesium Level 1.8 mg/dL (1.8-2.4) Microbiology 10/26/16 Blood Culture - Preliminary, Resulted NO GROWTH AFTER 2 DAYS 10/27/16 Urine Culture - Preliminary, Resulted 10/27/16 Urine Culture Result 1 (ANDREI) - Preliminary, Resulted Medications Current Medications Aspirin (Kyree Aspirin) 325 mg 1X ONCE PO Last administered on 10/26/16 23:56 ; Start 10/26/16 at 23:45; Stop 10/26/16 at 23:46; Status DC Furosemide (Lasix) 40 mg 1X ONCE IVP Last administered on 10/26/16 23:56; Start 10/26/16 at 23:45; Stop 10/26/16 at 23:46; Status DC Albuterol/ Ipratropium (Duoneb) 3 ml 1X ONCE NEB Last administered on 00:05; Start 10/27/16 at 00:15; Stop 10/27/16 at 00:16; Status DC Methylprednisolone Sodium Succinate (SOLU-Medrol 125MG VIAL) 125 mg 1X ONCE IV Last administered on 10/26/16 23:57; Start 10/27/16 at 00:00; Stop 10/27/16 at 00:01; Status DC Acetaminophen (Tylenol) 1,000 mg 1X ONCE PO Last administered on 10/27/16 00: 26; Start 10/27/16 at 00:30; Stop 10/27/16 at 00:31; Status DC Enoxaparin Sodium (Lovenox 100mg Syringe) 100 mg 1X ONCE SQ Last administered on 10/27/16 00:58; Start 10/27/16 at 01:00; Stop 10/27/16 at 01:01; Status DC Ceftriaxone Sodium 1 gm/ Sodium Chloride 50 ml @ 100 mls/hr 1X ONCE IV Last administered on 10/27/16 00:57; Start 10/27/16 at 01:00; Stop 10/27/16 at 01:29; Status DC Azithromycin (Zithromax) 500 mg 1X ONCE PO Last administered on 10/27/16 00:58 ; Start 10/27/16 at 01:00; Stop 10/27/16 at 01:01; Status DC Albuterol/ Ipratropium (Duoneb) 3 ml Q4HRS W/A NEB Last administered on 05:36; Start 10/27/16 at 06:00 Azithromycin (Zithromax) 500 mg DAILY PO Last administered on 10/29/16 08:00; Start 10/27/16 at 09:00; Stop 10/30/16 at 08:59 Ceftriaxone Sodium 1 gm/ Sodium Chloride 50 ml @ 100 mls/hr Q24H IV Last administered on 10/28/16 22:32; Start 10/27/16 at 23:00; Stop 10/29/16 at 09:30; Status DC Prednisone (Prednisone) 40 mg DAILY PO Last administered on 10/29/16 08:00; Start 10/27/16 at 09:00; Stop 10/29/16 at 09:30; Status DC Enoxaparin Sodium (Lovenox 100mg Syringe) 100 mg 1X ONCE SQ Last administered on 10/27/16 08:21; Start 10/27/16 at 09:00; Stop 10/27/16 at 09:01; Status DC Sodium Chloride 50 ml @ As Directed STK-MED ONCE .ROUTE ; Start 10/27/16 at 00:50 ; Stop 10/27/16 at 00:51; Status DC Ceftriaxone Sodium (Rocephin) 1 gm STK-MED ONCE IV ; Start 10/27/16 at 00:50; Stop 10/27/16 at 00:51; Status DC Acetaminophen (Tylenol) 1,000 mg PRN Q6HRS PRN PO MILD PAIN Last administered on 10/28/16 00:28; Start 10/27/16 at 06:00 Insulin Detemir (Levemir) 80 units QHS SQ Last administered on 10/28/16 20:20; Start 10/27/16 at 21:00 Insulin Aspart (NovoLOG) 35 units TIDAC SQ Last administered on 10/28/16 17:04 ; Start 10/27/16 at 08:30 Alprazolam (Xanax) 0.25 mg PRN TID PRN PO ANXIETY Last administered on 01:51; Start 10/27/16 at 10:15 Aspirin (Aspirin Enteric Coated) 81 mg DAILY PO Last administered on 10/29/16 08:00; Start 10/27/16 at 10:30 Carvedilol (Coreg) 12.5 mg BIDWMEALS PO Last administered on 10/29/16 08:01; Start 10/27/16 at 10:30 Citalopram Hydrobromide (CeleXA) 10 mg DAILY PO Last administered on 10/29/16 07:58; Start 10/27/16 at 10:30 Clopidogrel Bisulfate (Plavix) 75 mg DAILY PO Last administered on 10/29/16 07: 59; Start 10/27/16 at 10:30 Fenofibrate (Tricor) 145 mg HS PO Last administered on 10/28/16 20:13; Start at 21:00 Furosemide (Lasix) 20 mg PRN BID PRN PO SWELLING Last administered on 10/29/16 05:36; Start 10/27/16 at 10:15 Gabapentin (Neurontin) 100 mg BID PO Last administered on 10/29/16 07:59; Start 10/27/16 at 10:30 Levothyroxine Sodium (Synthroid) 100 mcg DAILYAC PO Last administered on 05:37; Start 10/27/16 at 10:30 Pantoprazole Sodium (Protonix) 40 mg DAILY PO Last administered on 10/29/16 07: 59; Start 10/27/16 at 10:30 Spironolactone (Aldactone) 25 mg DAILY PO Last administered on 10/29/16 07:59; Start 10/27/16 at 10:30 Sacubitril/ Valsartan (Entresto 49 Mg-51 Mg) 2 tab BID PO Last administered on 10/29/16 08:02; Start 10/27/16 at 10:30 Guaifenesin (Mucinex Er) 600 mg BID PO Last administered on 10/29/16 08:00; Start 10/27/16 at 13:30 Budesonide (Pulmicort) 0.5 mg RTBID NEB Last administered on 10/28/16 11:01; Start 10/27/16 at 20:00 Montelukast Sodium (Singulair) 10 mg QHS PO Last administered on 10/28/16 20:13 ; Start 10/27/16 at 21:00 Sodium Chloride 100 ml @ As Directed STK-MED ONCE .ROUTE Last administered on 10/28/16 00:30; Start 10/28/16 at 00:28; Stop 10/28/16 at 00:29; Status DC Loperamide HCl (Imodium) 2 mg PRN Q15MIN PRN PO DIARRHEA Last administered on 03:31; Start 10/29/16 at 03:30 Prednisone (Prednisone) 20 mg DAILY PO ; Start 10/30/16 at 09:00; Status UNV Furosemide (Lasix) 20 mg 1X ONCE IVP ; Start 10/29/16 at 09:30; Stop 10/29/16 at 09:31; Status UNV Active Scripts Active Furosemide 20 Mg Tablet 1 Tab PO BID PRN 30 Days Magnesium (Magnesium Oxide) 400 Mg Capsule 1 Cap PO DAILY Reported Lantus Solostar (Insulin Glargine,Hum.rec.anlog) 100 Unit/1 Ml Insuln.pen 80 Unit SQ QHS Last dose: 07/30/16 9 PM Next dose: 07/31/16 9 PM Spironolactone 25 Mg Tablet 25 Mg PO DAILY Last dose: 07/31/16 9 AM Next dose: 08/01/16 9 AM Synthroid (Levothyroxine Sodium) 100 Mcg Tablet 100 Mcg PO DAILYAC Last dose: 07/31/16 7 AM Next dose: 08/01/16 7 AM Plavix (Clopidogrel Bisulfate) 75 Mg Tablet 75 Mg PO DAILY Last dose: 07/31/16 9 AM Next dose: 08/01/16 9 AM Humalog (Insulin Lispro) 100 Unit/1 Ml Vial 35 Unit SQ TIDAC Last dose: 07/31/16 5 PM Next dose: 08/01/16 7 AM Citalopram Hbr (Citalopram Hydrobromide) 10 Mg Tablet 10 Mg PO DAILY Last dose: 07/31/16 9 AM Next dose: 08/01/16 9 AM Tylenol (Acetaminophen) 325 Mg Tablet 650 Mg PO Q4HRS PRN As Needed Potassium Chloride 20 Meq Tablet.er 20 Meq PO DAILY Last dose: 07/31/16 9 AM Next dose: 08/01/16 9 AM Pantoprazole Sodium 40 Mg Tablet.dr 40 Mg PO DAILY Last dose: 07/31/16 9 AM Next dose: 08/01/16 9 AM Gabapentin 100 Mg Capsule 100 Mg PO BID Last dose: 07/31/16 9 AM Next dose: 07/31/16 9 PM Fenofibrate (Fenofibrate Nanocrystallized) 145 Mg Tablet 145 Mg PO HS Last dose: 07/30/16 at 9 PM Next dose: 07/31/16 at 9 PM Carvedilol 12.5 Mg Tablet 12.5 Mg PO BID Last dose: 07/31/16 9 AM Next dose: 07/31/16 9 PM Atorvastatin Calcium 40 Mg Tablet 40 Mg PO HS Last dose: 07/30/16 at 9 PM Next dose: 07/31/16 at 9 PM Aspirin Ec (Aspirin) 81 Mg Tablet.dr 81 Mg PO DAILY last dose: 07/31/16 0900 next dose: 08/01/16 0900 Alprazolam 0.25 Mg Tablet 0.25 Mg PO TID PRN As needed Vitals/I & O Vital Sign - Last 24 Hours 10/28/16 10/28/16 10/28/16 10/28/16 11:01 11:02 12:09 15:59 Temp 97.5 Pulse 83 B/P (MAP) 121/61 (81) Pulse Ox 97 97 97 94 O2 Delivery Nasal Cannula Nasal Cannula Nasal Cannula Nasal Cannula O2 Flow Rate 2.0 2.0 2.0 2.0 10/28/16 10/28/16 10/28/16 10/28/16 16:21 17:00 19:00 19:40 Temp 97.7 98.0 Pulse 81 81 81 Resp 20 18 B/P (MAP) 149/73 (98) 149/73 115/64 (81) Pulse Ox 96 96 O2 Delivery Room Air Room Air Nasal Cannula O2 Flow Rate 2.0 10/28/16 10/28/16 10/28/16 10/29/16 20:12 20:49 22:41 05:32 Temp 97.8 97.7 Pulse 81 72 75 Resp 20 20 B/P (MAP) 115/64 123/74 (90) 136/78 (97) Pulse Ox 98 95 96 O2 Delivery Room Air Room Air Room Air 10/29/16 10/29/16 10/29/16 05:36 08:01 08:02 Pulse 75 75 B/P (MAP) 136/78 136/78 Pulse Ox 95 O2 Delivery Room Air Intake and Output 10/29/16 10/29/16 10/30/16 15:00 23:00 07:00 Intake Total 200 ml Balance 200 ml MARYLIN GALAN APRN Oct 29, 2016 09:32
[2016-10-29] MEDS ORDERED: FUROSEMIDE 20 MG/2 ML VIAL IVP ONE ×2 (09:45→14:15)
[2016-10-29 10:55] VITALS: BP 130/74
[2016-10-29] MEDS: BUDESONIDE 0.5 MG/2 ML NEBU NEB SCH (11:28)
[2016-10-29] MEDS ORDERED: MONT10TA9 PO (13:39)
[2016-10-29] MEDS ORDERED: PRED20TA PO (13:39)
[2016-10-29] MEDS ORDERED: GUAI600T47 PO (13:39)
--- NOTE | 2016-10-29 16:44 | RAD ---
Chest, 2 views, 10/29/2016: History: Congestive heart failure Comparison is made to a study from 10/26/2016. A right-sided transvenous pacemaker remains in place with 2 leads extending into the right heart. The heart size and pulmonary vascularity are normal. No pulmonary infiltrates are seen. No pleural fluid is evident. Mild spurring is present in the spine. IMPRESSION: No acute cardiopulmonary abnormality is detected.
--- NOTE | 2016-10-29 18:56 | DS ---
DATE OF DISCHARGE: 10/29/2016 DISCHARGE DIAGNOSES: 1. Acute respiratory failure, resolved. 2. Acute bronchitis, suspect viral. 3. Chronic obstructive pulmonary disease exacerbation. 4. Nkwdr-zx-cunjxdk systolic heart failure with ejection fraction of 25-30%. 5. Coronary artery disease, stable. 6. Status post AICD implantation device normal and no flaring episodes. 7. Hypertension. 8. Hyperlipidemia. 9. Diabetes type 2, some hyperglycemia from steroids. HOSPITAL COURSE: This is a 71-year-old female who was admitted by Dr. Yvette Cobb with complaint of shortness of breath, chest tightness, cough, stuffy nose, and had been on outpatient antibiotics including Cipro and Z-ORION. I believe the nature of her problem was more congestive heart failure nature and she diuresed well and improved well with IV Lasix. She did not have a white blood cell count and there was no evidence of any type of infection or chest x-ray I believe her bronchitis was probably viral. Her sputum culture was negative. Urine culture negative. Blood culture negative. On the day of discharge, she was feeling better. She was seen by Deepa Garcia and received an additional dose of Lasix. PHYSICAL EXAMINATION: VITAL SIGNS: 130/74, pulse 84, temperature 97.4, pulse ox is 96% on room air. GENERAL: The patient is sitting comfortably in bed. HEENT: Tongue was moist. NECK: Supple. LUNGS: With few crackles, otherwise clear. CARDIOVASCULAR: Regular rhythm and rate. ABDOMEN: Large and obese, nontender. EXTREMITIES: Without edema. DISPOSITION: To home as she had three 500 mg tablets Zithromax plus ceftriaxone and will not continue any other antibiotics at this time. She will finish a prednisone taper. Continue on the Singulair and Lasix, and follow up with her primary care doctor. JARET LUCIO DO DR: KIMBERLY/barak JOB#: [id number] / [id number]
[2016-10-30] MEDS ORDERED: predniSONE 20 MG TABLET PO SCH (09:00)
--- NOTE | 2016-10-31 07:18 | ACF ---
Admit Criteria Forms Admit Criteria Forms Admit Criteria Forms COPD Clinical Indications for Admission to Inpatient Care (Center/check or initial the applicable condition/criteria) Admission is indicated for ANY ONE of the following (1)(2)(3): [X]I. Acute exacerbation by high-risk comorbidity(e.g., pneumonia, dysrhythmia, heart failure, pleural effusion, pneumothorax) or severe underlying COPD (eg, baseline FEV1 less than 50% predicted) [ ]II. Inpatient admission required[A] rather than observation care (see Chronic Obstructive Pulmonary Disease: Observation Care) because of ANY ONE of the following: [ ]a) New or pre-existing signs or symptoms of COPD (eg, dyspnea or Tachypnea at rest or with minimal activity) that persist despite outpatient and observation care treatment [ ]b) New-onset hypoxemia (room air SaO2 less than 90%, PO2 less than 60 mm Hg (8.0 kPa)) that persists despite outpatient and observation care treatment [ ]c) Worsening of pre-existing hypoxemia (eg, new or increased requirement for supplemental oxygen to maintain oxygenation at baseline level) that persists despite outpatient and observation care treatment, with oxygen treatment needs performable only in acute inpatient setting [ ]d) Hypercarbia (PCO2 greater than 40 mm Hg (5.3 kPa))-induced respiratory acidosis (pH less than 7.35) that persists despite outpatient and observation care treatment [ ]e) Supplemental oxygen or respiratory treatments for over 24 hours that are performable only in acute inpatient setting [ ]f) Chest tube placement with active evacuation (e.g., suction, drainage) (6) [ ]g) Other condition, treatment or monitoring requiring inpatient admission [ ]III. Planned invasive surgical or diagnostic procedures requiring acute- care hospitalization [ ]IV. Acute respiratory failure (e.g., uncompensated hypercarbia, severe hypoxemia) [ ]V. Severe comorbid condition (e.g., severe steroid myopathy, acute vertebral fracture) that has acutely worsened pulmonary function [ ]. Altered mental status that is severe or persistent Extended stay beyond goal length of stay may be needed for (29)(30)(31)(32)(33) : [ ]a ) Respiratory Failure. [ ]b) Severe or persisting hypoxemia or hypercarbia [ ]c) Severe or persistent dyspnea [ ]d) Clinically significant Comorbidities (e.g. chronic heart failure, atrial fibrillation with rapid response, pneumonia)(36) [ ]e) Malnutrition (33) The original [facility] [employer] content created by [facility] [employer] has been revised. The portions of the content which have been revised are identified through the use of italic text, and [facility] has neither reviewed nor approved the modified material. All other unmodified content is copyright [facility] [employer]. Please see references footnoted in the original [facility] [employer] edition 2014 JACINTA KIDD Oct 31, 2016 07:18
== END 2016-10-29 14:00 | disposition home or self-care (01) | DRG 291 ==
LOC: ER 23:08 → 1 SOUTH 10-27 00:20
PROVIDERS: ADMIT Internal Medicine; ATTEND Internal Medicine
DX: I13.0 Hypertensive heart and chronic kidney disease with heart failure and stage 1 through stage 4 chronic kidney disease, or unspecified chronic kidney disease (principal); I50.23 Acute on chronic systolic (congestive) heart failure; J96.20 Acute and chronic respiratory failure, unspecified whether with hypoxia or hypercapnia; E11.22 Type 2 diabetes mellitus with diabetic chronic kidney disease; J44.0 Chronic obstructive pulmonary disease with (acute) lower respiratory infection; J44.1 Chronic obstructive pulmonary disease with (acute) exacerbation; E11.51 Type 2 diabetes mellitus with diabetic peripheral angiopathy without gangrene; E03.9 Hypothyroidism, unspecified; E78.5 Hyperlipidemia, unspecified; I25.10 Atherosclerotic heart disease of native coronary artery without angina pectoris; I25.5 Ischemic cardiomyopathy; N18.9 Chronic kidney disease, unspecified; Z80.3 Family history of malignant neoplasm of breast; Z82.49 Family history of ischemic heart disease and other diseases of the circulatory system; Z83.3 Family history of diabetes mellitus; Z85.3 Personal history of malignant neoplasm of breast; Z90.710 Acquired absence of both cervix and uterus; Z95.810 Presence of automatic (implantable) cardiac defibrillator; Z98.61 Coronary angioplasty status; F41.9 Anxiety disorder, unspecified; K21.9 Gastro-esophageal reflux disease without esophagitis; E78.00 Pure hypercholesterolemia, unspecified; I25.2 Old myocardial infarction; Z88.0 Allergy status to penicillin; Z90.722 Acquired absence of ovaries, bilateral; Z88.8 Allergy status to other drugs, medicaments and biological substances; J20.8 Acute bronchitis due to other specified organisms
CPT/HCPCS: 36415; 71020; 80048; 80053; 81001; 82947; 83036; 83735; 83880; 84443; 84484; 85025; 85027; 85379; 85610; 85730; 87040; 87070; 87086; 87205; 93005; 93970; 94640; 96365; 96372; 96375; J0456; J0696; J1650; J1815; J1940; J2930; J7512; J7620; J7626; 99285-25

== ENCOUNTER → 2016-11-04 | Outpatient (CLI) | payer MEDICARE, BC ==
[2016-10-29 10:55] VITALS: BP 130/74
[~2016-11-04] MED LIST changes: +GUAI600T47 PO; +MONT10TA9 PO; +PRED20TA PO
--- NOTE | 2016-11-04 08:42 | RAD ---
Indication chronic cough for 2 months. Frontal and lateral views of the chest were obtained. Comparison is made to an examination 6 days earlier. There has not been a significant change. Heart size and pulmonary vessels are similar. Defibrillating and bipolar prior cardiac pacing device are noted. No focal infiltrate is seen. IMPRESSION: No acute or focal process. No significant change
== END | disposition home or self-care (01) ==
LOC: DXRADRC 08:26
PROVIDERS: ATTEND Physician Assistant Medical
DX: J42 Unspecified chronic bronchitis (principal); Z95.0 Presence of cardiac pacemaker
CPT/HCPCS: 71020

== ENCOUNTER → 2016-12-12 | Outpatient (CLI) | payer MEDICARE, BC ==
[2016-12-12 07:53] LABS: CALCIUM 8.4 mg/dL (8.5-10.1); CREATININE 1.1 mg/dL (0.6-1.0); GFR 49.2; POTASSIUM 3.9 mmol/L (3.5-5.1)
== END | disposition home or self-care (01) ==
LOC: LAB 07:10
PROVIDERS: ATTEND Internal Medicine Cardiovascular Disease
DX: I42.9 Cardiomyopathy, unspecified (principal)
CPT/HCPCS: 36415; 80048

== ENCOUNTER 2017-02-23 12:23 | Emergency (ER) | payer MEDICARE, BC ==
[2017-02-23 12:23] VITALS: BP 130/74
--- NOTE | 2017-02-23 12:57 | ED.ADGEN ---
Past History Past Medical History: Anxiety, CAD, Cancer, CHF, COPD, Diabetes, GERD, High Cholesterol, Hypertension, [place], Other Past Surgical History: Cancer Surgery, Hysterectomy, Pacemaker, Tonsillectomy, Other Smoking: Non-smoker Alcohol Use: Occasionally Drug Use: None Adult General Chief Complaint Chief Complaint Shortness of air, cough nausea HPI HPI Patient is a 71-year-old female with history of CAD, CHF, COPD, breast cancer with left cystectomy and who presents with subjective fever, nonproductive cough , and increased shortness of air over the past 3 days. Symptoms been progressive. Patient also reports nausea. Shortness of air is worse with exertion and mild supine. Denies increased leg pain or swelling. Sputum is described as light pink. No other acute symptoms or complaints.[] Review of Systems Review of Systems Review symptoms as per history of present illness. All other review symptoms are negative. All other systems were reviewed and found to be within normal limits, except as documented in this note. Current Medications Current Medications Current Medications Medications (Trade) Dose Ordered Sig/Brian Start Time Stop Time Status Last Admin Dose Admin Albuterol/ Ipratropium (Duoneb) 3 ml STK-MED ONCE 02/23/17 13:03 02/23/17 13:04 DC Aspirin (Aspirin Enteric Coated) 162 mg 1X ONCE 02/23/17 13:20 02/23/17 13:21 DC 02/23/17 13:15 162 MG Ondansetron HCl (Zofran) 4 mg 1X ONCE 02/23/17 13:30 02/23/17 13:31 DC 02/23/17 13:16 4 MG Allergies Allergies Allergies Coded Allergies Type Severity Reaction Last Updated Verified insulin glargine Allergy Intermediate 10/27/16 Yes Physical Exam Physical Exam Constitutional: Well developed, well nourished, no acute distress, non-toxic appearance. [] HENT: Normocephalic, atraumatic, bilateral external ears normal, oropharynx moist, no oral exudates, nose normal. [] Eyes: PERRLA, EOMI, conjunctiva normal, no discharge. [] Neck: Normal range of motion, no tenderness, supple, no stridor. [] Cardiovascular:Heart rate regular rhythm, no murmur [] Lungs & Thorax: aspirations nonlabored, diminished breath sounds bilaterally with coarse lung sounds throughout.[] Abdomen: Bowel sounds normal, soft, no tenderness, no masses, no pulsatile masses. [] Skin: Warm, dry, no erythema, no rash. [] Back: No tenderness. [] Extremities: No tenderness, no cyanosis, no clubbing, ROM intact, no edema. [] Neurologic: Alert and oriented X 3, normal motor function, normal sensory function, no focal deficits noted. [] Psychologic: Affect flatl. [] Current Patient Data Vital Signs Vital Signs Date Time Temp Pulse Resp B/P (MAP) Pulse Ox O2 Delivery O2 Flow Rate FiO2 02/23/17 13:05 95 Room Air 02/23/17 12:23 98.5 85 18 Lab Results Laboratory Tests Test 02/23/17 13:25 02/23/17 13:50 White Blood Count 4.7 x10^3/uL (4.0-11.0) Red Blood Count 4.97 x10^6/uL (3.50-5.40) Hemoglobin 14.7 g/dL (12.0-15.5) Hematocrit 44.8 % (36.0-47.0) Mean Corpuscular Volume 90 fL (79-100) Mean Corpuscular Hemoglobin 30 pg (25-35) Mean Corpuscular Hemoglobin Concent 33 g/dL (31-37) Red Cell Distribution Width 13.4 % (11.5-14.5) Platelet Count 134 x10^3/uL (140-400) L Neutrophils (%) (Auto) 68 % (31-73) Lymphocytes (%) (Auto) 18 % (24-48) L Monocytes (%) (Auto) 13 % (0-9) H Eosinophils (%) (Auto) 1 % (0-3) Basophils (%) (Auto) 1 % (0-3) Neutrophils # (Auto) 3.2 x10^3uL (1.8-7.7) Lymphocytes # (Auto) 0.8 x10^3/uL (1.0-4.8) L Monocytes # (Auto) 0.6 x10^3/uL (0.0-1.1) Eosinophils # (Auto) 0.0 x10^3/uL (0.0-0.7) Basophils # (Auto) 0.0 x10^3/uL (0.0-0.2) Sodium Level 139 mmol/L (136-145) Potassium Level 4.0 mmol/L (3.5-5.1) Chloride Level 104 mmol/L (98-107) Carbon Dioxide Level 25 mmol/L (21-32) Anion Gap 10 (6-14) Blood Urea Nitrogen 17 mg/dL (7-20) Creatinine 1.1 mg/dL (0.6-1.0) H Estimated GFR (Cockcroft-Gault) 49.2 BUN/Creatinine Ratio 15 (6-20) Glucose Level 208 mg/dL (70-99) H Calcium Level 8.6 mg/dL (8.5-10.1) Total Bilirubin 0.5 mg/dL (0.2-1.0) Aspartate Amino Transferase (AST) 22 U/L (15-37) Alanine Aminotransferase (ALT) 37 U/L (14-59) Alkaline Phosphatase 60 U/L (46-116) Troponin I Quantitative < 0.017 ng/mL (0-0.055) BW-Cry-W-Type Natriuretic Peptide 592 pg/mL (0-124) H Total Protein 6.7 g/dL (6.4-8.2) Albumin 3.5 g/dL (3.4-5.0) Albumin/Globulin Ratio 1.1 (1.0-1.7) Urine Collection Type Unknown Urine Color Yellow Urine Clarity Hazy Urine pH 5.0 Urine Specific [employer] 1.025 Urine Protein 30 mg/dl (NEG-TRACE) Urine Glucose (UA) 100 mg/dL (NEG) Urine Ketones (Stick) Neg mg/dL (NEG) Urine Blood Mod (NEG) Urine Nitrite Neg (NEG) Urine Bilirubin Neg (NEG) Urine Urobilinogen Dipstick 0.2 mg/dL (0.2 mg/dL) Urine Leukocyte Esterase Neg (NEG) Urine RBC Rare /HPF (0-2) Urine WBC Rare /HPF (0-4) Urine Squamous Epithelial Cells Occ /LPF Urine Bacteria Mod /HPF (0-FEW) Microbiology 02/23/17 Urine Culture - Final, Complete 02/23/17 Urine Culture Result 1 (ANDREI) - Final, Complete EKG EKG [] Radiology/Procedures Radiology/Procedures [Chest x-ray: Suspected right middle lobe infiltrate] Course & Med Decision Making Course & Med Decision Making Pertinent Labs and Imaging studies reviewed. (See chart for details) [Shortness of breath, likely multifactorial resulting from belt CHF and possible early developing pneumonia. Patient is not in any respiratory distress prefers to be treated as outpatient. Will treat empirically with close PCP follow-up and watchful waiting. Return precautions reviewed. Patient verbalizes understanding agreement discharge instructions prior to departure.] Final Impression Final Impression [] Problems: Dragon Disclaimer Dragon Disclaimer This electronic medical record was generated, in whole or in part, using a voice recognition dictation system. JAVID HENDERSON DO Feb 23, 2017 12:57
[2017-02-23] MEDS ORDERED: IPRATRPIUM/ALBUTEROL 0.5/2.5MG 3 ML NEBU. ONE (13:03)
[2017-02-23] MEDS ORDERED: IPRATRPIUM/ALBUTEROL 0.5/2.5MG 3 ML NEBU. NEB ONE (13:15)
[2017-02-23] MEDS ORDERED: ASPIRIN ENTERIC COATED 81 MG TABLET.DR. PO ONE (13:20)
[2017-02-23] MEDS ORDERED: ONDANSETRON PF 4 MG/2 ML VIAL. IV ONE (13:30)
[2017-02-23 13:48] LABS: BASO % 1 % (0-3); EOS % 1 % (0-3); HEMATOCRIT 44.8 % (36.0-47.0); HEMOGLOBIN 14.7 g/dL (12.0-15.5); LYMPH # 0.8 x10^3/uL (1.0-4.8); LYMPH % 18 % (24-48); MEAN CORPUSCULAR HEMOGLOBIN 30 pg (25-35); MEAN CORPUSCULAR HGB CONC 33 g/dL (31-37); MEAN CORPUSCULAR VOLUME 90 fL (79-100); MONO # 0.6 x10^3/uL (0.0-1.1); MONO % 13 % (0-9); NEUT # 3.2 x10^3uL (1.8-7.7); NEUT % 68 % (31-73); PLATELET COUNT 134 x10^3/uL (140-400); RED BLOOD COUNT 4.97 x10^6/uL (3.50-5.40); RED CELL DISTRIBUTION WIDTH 13.4 % (11.5-14.5); WHITE BLOOD COUNT 4.7 x10^3/uL (4.0-11.0)
[2017-02-23 14:01] LABS: ALBUMIN 3.5 g/dL (3.4-5.0); ALBUMIN/GLOBULIN RATIO 1.1 (1.0-1.7); CALCIUM 8.6 mg/dL (8.5-10.1); CREATININE 1.1 mg/dL (0.6-1.0); GFR 49.2; TOTAL BILIRUBIN 0.5 mg/dL (0.2-1.0); TOTAL PROTEIN 6.7 g/dL (6.4-8.2)
--- NOTE | 2017-02-23 14:12 | RAD ---
Chest radiograph 02/23/2017 2:48 PM Indication: Shortness of breath. History of COPD and CHF. Comparison: Chest radiograph 11/04/2016 Technique: Single portable upright frontal view of the chest is provided. Findings: Right chest wall cardiac device is identified with leads projecting over the right atrium and right ventricle. Cardiomediastinal silhouette is within normal limits. No pleural effusions, pulmonary vascular congestion or pneumothorax. Faint increased density involving the right middle lobe may be secondary to overlying breast tissue. However, findings may represent developing infiltrate. Osseous structures are normal. Impression: Suspect developing infiltrate in the right midlung. If these findings are discordant with clinical examination, short-term follow-up two-view chest radiograph is recommend.
[2017-02-23 14:17] LABS: BILIRUBIN,URINE NEG (NEG); CLARITY,URINE HAZY; COLOR,URINE YELLOW; GLUCOSE,URINE 100 mg/dL (NEG)
[2017-02-23 14:18] LABS: BACTERIA,URINE MOD /HPF (0-FEW); NITRITE,URINE NEG (NEG); RBC,URINE RARE /HPF (0-2); SQUAMOUS EPITHELIAL CELL,UR OCC /LPF; UROBILINOGEN,URINE 0.2 mg/dL (0.2 mg/dL); WBC,URINE RARE /HPF (0-4)
--- NOTE | 2017-02-23 15:09 | EKG ---
[address] [address] Test Date: 2017-02-23 Test Time: 12:58:33 Pat Name: LAURE SIERRA Department: Room: Gender: F Sap Hana Architect: HARIKA : [id number] Requested By: JAVID HENDERSON Order Number: [id number] Reading MD: Primitivo Medina Measurements Intervals [place] Rate: 80 P: 50 MI: 146 QRS: 9 QRSD: 82 T: 50 QT: 390 QTc: 453 Interpretive Statements SINUS RHYTHM QRS(T) CONTOUR ABNORMALITY CONSISTENT WITH ANTEROSEPTAL INFARCT AGE UNDETERMINED ABNORMAL ECG Electronically Signed On 02-28-2017 10:48:04 [employer]LE[employer] by Primitivo Medina
== END 2017-02-23 15:25 | disposition home or self-care (01) ==
LOC: ER 12:23
DX: R50.9 Fever, unspecified (principal); R06.02 Shortness of breath; R05 Cough; I25.10 Atherosclerotic heart disease of native coronary artery without angina pectoris; E11.9 Type 2 diabetes mellitus without complications; E78.00 Pure hypercholesterolemia, unspecified; F41.9 Anxiety disorder, unspecified; I11.0 Hypertensive heart disease with heart failure; I50.9 Heart failure, unspecified; J44.9 Chronic obstructive pulmonary disease, unspecified; K21.9 Gastro-esophageal reflux disease without esophagitis; I25.2 Old myocardial infarction; Z95.0 Presence of cardiac pacemaker; Z88.8 Allergy status to other drugs, medicaments and biological substances
CPT/HCPCS: 36415; 80053; 81001; 83880; 84484; 85025; 87086; 93005; 94640; 96374; 99285; J2405; J7620

== ENCOUNTER 2017-02-25 19:23 | Emergency (ER) | payer MEDICARE, BC ==
--- NOTE | 2017-02-25 20:21 | PHYS DOC ---
General Chief Complaint: PRODUCTIVE COUGH Stated Complaint: NAUSEA Time Seen by MD: 19:44 Source: patient, EMS, old records Exam Limitations: no limitations Problems: History of Present Illness Initial Comments Patient is a 71-year-old female brought to the ED by EMS with productive cough and nausea. Patient was seen here in the emergency department February 23 diagnosed with mild CHF and a questionable right middle lobe infiltrate. Her symptoms improved and she was discharged home with doxycycline and Lasix 20 mg twice a day quantity 4. Patient states that since discharge she's been taking the medications as directed but has not been using her home nebulizer treatments. She's had some nausea and abdominal discomfort after taking the doxycycline and her cough has become productive with yellow to green sputum versus clear. She denies any new chest pain or shortness of breath, denies any new leg swelling. She's been taking medications on an empty stomach, denies headache vomiting diarrhea fever or chills. On arrival she is afebrile with normal vital signs, and throughout her ED course on my evaluation and her oxygen saturation remained 93-95% on room air. On arrival Solu-Medrol and DuoNeb ordered, chest x-ray and labs initiated. The patient appeared to not feel well but was in no apparent distress. Timing/Duration: constant Severity: mild Modifying Factors: worse with medication, improves with rest Associated Symptoms: cough, nausea/vomiting, other Allergies: Coded Allergies: insulin glargine (Verified Allergy, Intermediate, 10/27/16) Past Medical History Medical History: other (coronary artery disease, congestive heart failure, COPD , breast cancer, diabetes, hyperlipidemia, hypertension) Surgical History: angioplasty, pacemaker, other (left mastectomy, tonsillectomy ) Social History Smoker: non-smoker Alcohol: none Drugs: none Review of Systems Constitutional: denies chills, denies diaphoresis, denies fever, malaise EENTM: denies ear pain, denies ear discharge, denies nose pain, nose congestion , denies throat pain, denies throat swelling, denies mouth pain Respiratory: cough, denies shortness of breath, denies wheezing Cardiovascular: denies chest pain, denies palpitations, denies syncope Gastrointestinal: abdominal pain, denies diarrhea, nausea, denies vomiting Genitourinary: denies dysuria, frequency, denies hematuria Musculoskeletal: denies back pain, denies joint swelling, denies neck pain Psychiatric/Neurological: denies headache, denies numbness, denies paresthesia Hematologic/Lymphatic: denies blood clots, denies easy bleeding, denies easy bruising Physical Exam General Appearance: no apparent distress (calling out with no apparent dyspnea or weakness on arrival that she dropped her glasses) Ear, Nose, Throat: hearing grossly normal, normal ENT inspection (yellow nasal discharge), normal pharynx Neck: non-tender, supple Respiratory: chest non-tender, other (mild wheeze bilaterally with good air movement no respiratory distress) Cardiovascular: normal peripheral pulses, regular rate, rhythm Gastrointestinal: normal bowel sounds, non tender, soft Extremities: normal range of motion, non-tender, normal inspection (trace pitting lower extremity edema bilaterally) 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 Interpreted by me. Chest AP: Interpreted by me, CHF changes overall improved from February 23 study interpreted by me. BUN 27, creatinine 1.3, BNP 210, lactic acid 1.0, overall reassuring labs On recheck after Solu-Medrol and DuoNeb I find the patient now sitting up on the edge of her bed. She has been engaging and talkative since shortly after ED arrival. She said she is feeling much better and denies any new or progressive symptoms. Her vital signs are normal, I discussed taking doxycycline with food to avoid nausea and that she was mildly dehydrated from the Lasix needing to increase her fluid intake mildly tonight. Use her home nebulizers treatments as directed but otherwise I feel she is stable for discharge and she expressed agreement. She agrees to follow-up closely with her doctor to continue to assess her fluid status. Impressions: Drug reaction with GI intolerance Questionable right middle lobe pneumonia Mild hypokalemia Chronic CHF improved from prior visit Departure Time of Disposition: 22:52 Disposition: HOME, SELF-CARE Diagnosis: med reaction, mild hypovolemia Condition: GOOD Patient Instructions: Dehydration, Adult, Pyte-db-Bcsw, Drug Reaction, GI Intolerance Additional Instructions: As discussed, take doxycycline with food to avoid nausea. Increase fluid intake tonight and tomorrow. Continue other medications. Follow-up with your doctor in 2-3 days for recheck. Return to ED with new or changing symptoms. JUSTINE PENA DO Feb 25, 2017 20:21
[2017-02-25] MEDS ORDERED: methylPREDNISolone SOD SUCC PF 125 MG/2 ML VIAL. IV ONE (20:30)
[2017-02-25] MEDS ORDERED: ONDANSETRON PF 4 MG/2 ML VIAL. IV ONE (20:30)
[2017-02-25] MEDS ORDERED: IPRATRPIUM/ALBUTEROL 0.5/2.5MG 3 ML NEBU. NEB ONE (20:30)
[2017-02-25] MEDS ORDERED: ALPRAZolam 0.25 MG TABLET PO ONE (20:30)
--- NOTE | 2017-02-25 20:31 | EKG ---
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
[2017-02-25 21:04] LABS: BASO % 0 % (0-3); EOS % 0 % (0-3); HEMATOCRIT 43.4 % (36.0-47.0); HEMOGLOBIN 14.6 g/dL (12.0-15.5); LYMPH # 0.8 x10^3/uL (1.0-4.8); LYMPH % 17 % (24-48); MEAN CORPUSCULAR HEMOGLOBIN 29 pg (25-35); MEAN CORPUSCULAR HGB CONC 34 g/dL (31-37); MEAN CORPUSCULAR VOLUME 87 fL (79-100); MONO # 0.5 x10^3/uL (0.0-1.1); MONO % 10 % (0-9); NEUT # 3.3 x10^3uL (1.8-7.7); NEUT % 72 % (31-73); PLATELET COUNT 137 x10^3/uL (140-400); RED BLOOD COUNT 4.97 x10^6/uL (3.50-5.40); RED CELL DISTRIBUTION WIDTH 13.3 % (11.5-14.5); WHITE BLOOD COUNT 4.6 x10^3/uL (4.0-11.0)
[2017-02-25] MEDS ORDERED: ACETAMINOPHEN 325 MG TABLET PO ONE (21:15)
[2017-02-25 21:22] LABS: ALBUMIN 3.7 g/dL (3.4-5.0); CALCIUM 8.4 mg/dL (8.5-10.1); CREATININE 1.3 mg/dL (0.6-1.0); GFR 40.6; TOTAL BILIRUBIN 0.5 mg/dL (0.2-1.0); TOTAL PROTEIN 7.3 g/dL (6.4-8.2)
[2017-02-25 21:41] LABS: INFLUENZA A PATIENT NEGATIVE (NEGATIVE); INFLUENZA B PATIENT NEGATIVE (NEGATIVE)
[2017-02-25 22:24] VITALS: BP 132/66
--- NOTE | 2017-02-26 08:13 | RAD ---
Portable chest, 02/25/2017: History: Cough, nausea Comparison is made to a study from 02/23/2017. A right-sided transvenous pacing device is unchanged in position. The heart is within normal limits in size. Mild right basilar infiltrate is present. It appears to have improved slightly since the previous study, although a better depth of inspiration may be contributing to this apparent difference. No significant left lung infiltrate is seen. There is no evidence of pleural fluid. IMPRESSION: Mild residual right basilar infiltrate compatible with pneumonia.
== END 2017-02-25 22:57 | disposition home or self-care (01) ==
LOC: ER 19:23
DX: T36.4X5A Adverse effect of tetracyclines, initial encounter (principal); E86.1 Hypovolemia; E87.6 Hypokalemia; I25.10 Atherosclerotic heart disease of native coronary artery without angina pectoris; E11.9 Type 2 diabetes mellitus without complications; E78.5 Hyperlipidemia, unspecified; I11.0 Hypertensive heart disease with heart failure; I50.9 Heart failure, unspecified; J44.9 Chronic obstructive pulmonary disease, unspecified; Z95.0 Presence of cardiac pacemaker; Z98.61 Coronary angioplasty status; Z88.8 Allergy status to other drugs, medicaments and biological substances; Y92.89 Other specified places as the place of occurrence of the external cause
CPT/HCPCS: 36415; 71045; 80053; 83605; 83880; 84484; 85025; 87040; 87804; 93005; 94640; 96374; 96375; 99285; J2405; J2930; J7620

== ENCOUNTER → 2017-03-13 | Outpatient (CLI) | payer MEDICARE, BC ==
[2017-02-25 22:24] VITALS: BP 132/66
--- NOTE | 2017-03-13 12:48 | RAD ---
Chest, 2 views, 03/13/2017: History: Follow-up pneumonia Comparison is made to a study from 02/25/2017. A right-sided transvenous pacemaker remains in place with 2 leads extending into the right heart. The heart size and pulmonary vascularity are within normal limits. No pulmonary infiltrate is seen. The right lung base has cleared. There is no evidence of pleural fluid. Mild spurring is present in the spine. IMPRESSION: No acute cardiopulmonary abnormality is detected.
== END | disposition home or self-care (01) ==
LOC: DXRAD 10:34
PROVIDERS: ATTEND Physician Assistant Medical
DX: J18.1 Lobar pneumonia, unspecified organism (principal); Z95.0 Presence of cardiac pacemaker
CPT/HCPCS: 71046

== ENCOUNTER → 2017-04-22 | Outpatient (CLI) | payer MEDICARE, BC ==
--- NOTE | 2017-04-22 14:46 | RAD ---
MR#: [id number] Date of Study: 04/22/2017 Ordering Physician: ADITI HUERTA, Referring Physician: ADITI HUERTA, Tech: Lorna Bonds RDMS, RVT, RTR APPROVED REPORT Patient Location: OUT-PATIENT Indications Claudication: Grayscale images of the right common femoral, superficial femoral and below-knee vessels demonstrate moderate atherosclerotic plaque without any focal high-grade stenosis. Spectral waveforms are mostly biphasic from the common femoral artery to the popliteal segment. Velocities are grossly within ze l limits. The below-knee vessels were not well visualized but there are mostly biphasic waveforms wit h velocity of a proximally 38 cm/s the posterior tibial artery and 70 cm/s in the peroneal artery. Th e anterior tibial and dorsalis pedis vessels have no significant disease with normal spectral velocit ies. Lindquist scale images of the left common femoral, superficial femoral and below-knee vessels again demons trates mild to moderate diffuse atherosclerotic plaque. Spectral waveforms are mostly biphasic in the above knee vessels without any focal high-grade stenosis identified. The below-knee vessels demonstr ate monophasic flow again suggestive of small vessel disease. Critical Notification Critical Value: No <Conclusion> 1. No evidence of high-grade lower extremity arterial disease. Signed by : Ike Grant, Electronically Approved : 04/22/2017 14:46:29
== END | disposition home or self-care (01) ==
LOC: US 08:23
PROVIDERS: ATTEND Internal Medicine Cardiovascular Disease
DX: I73.9 Peripheral vascular disease, unspecified (principal); M79.605 Pain in left leg
CPT/HCPCS: 93925

== ENCOUNTER → 2017-04-22 | Outpatient (CLI) | payer MEDICARE, BC ==
--- NOTE | 2017-04-22 13:25 | RAD ---
Left lower extremity venous Doppler Clinical indication: Left lower extremity pain and swelling. Comparison: Ultrasound 10/27/2016. Findings: Grayscale, color Doppler and spectral waveform analysis of the left lower extremity with serial graded compression augmentation. Common femoral, femoral, insertion of the deep femoral and popliteal veins are patent with normal color Doppler imaging. Limited evaluation of the left lower extremity calf veins are unremarkable. There is a thin simple appearing popliteal fossa fluid collection measuring 4.4 x 2.1 x 0.9 cm. Impression: 1. No evidence of DVT in the left lower extremity. 2. Simple appearing Chambers's cyst measuring 4.4 cm.
== END | disposition home or self-care (01) ==
LOC: US 08:23
PROVIDERS: ATTEND Physician Assistant Medical
DX: M79.605 Pain in left leg (principal); M79.89 Other specified soft tissue disorders
CPT/HCPCS: 93971

== ENCOUNTER → 2017-04-28 | Outpatient (CLI) | payer MEDICARE, BC ==
--- NOTE | 2017-04-28 08:55 | RAD ---
3 view left knee study Indications: Chronic left knee pain in the region of the patella. Especially painful this a.m. No known injury. Findings: No acute fracture or dislocation or osteolytic process is seen. No significant degenerative spurring or joint space narrowing of the medial or lateral tibiofemoral joint compartments or the patellofemoral joint compartment is seen. There is no significant swelling of the suprapatellar bursa to indicate a joint effusion radiographically. A long superficial femoral arterial graft is present. IMPRESSION: No significant osseous abnormality.
== END | disposition home or self-care (01) ==
LOC: PMG 08:06
PROVIDERS: ATTEND Physician Assistant Medical
DX: M25.562 Pain in left knee (principal); G89.29 Other chronic pain
CPT/HCPCS: 73562

== ENCOUNTER → 2017-06-24 | Outpatient (CLI) | payer MEDICARE, BC ==
[~2017-06-24] MED LIST changes: -FENO145T2 PO; +FENO145T30 PO
[2017-06-24 07:29] LABS: CALCIUM 8.2 mg/dL (8.5-10.1); CREATININE 1.2 mg/dL (0.6-1.0); GFR 44.5; POTASSIUM 3.6 mmol/L (3.5-5.1)
== END | disposition home or self-care (01) ==
LOC: LAB 06:53
PROVIDERS: ATTEND Nurse Practitioner
DX: I13.0 Hypertensive heart and chronic kidney disease with heart failure and stage 1 through stage 4 chronic kidney disease, or unspecified chronic kidney disease (principal); E11.22 Type 2 diabetes mellitus with diabetic chronic kidney disease; I50.22 Chronic systolic (congestive) heart failure; N18.9 Chronic kidney disease, unspecified; E03.9 Hypothyroidism, unspecified; J44.9 Chronic obstructive pulmonary disease, unspecified; Z85.3 Personal history of malignant neoplasm of breast
CPT/HCPCS: 36415; 80048

== ENCOUNTER → 2017-09-01 | Outpatient (CLI) | payer MEDICARE, BC ==
[~2017-09-01] MED LIST changes: -SPIR25TA3 PO; +SPIR25TA5 PO
[2017-09-01 07:35] LABS: BASO % 1 % (0-3); EOS % 1 % (0-3); HEMATOCRIT 43.2 % (36.0-47.0); HEMOGLOBIN 14.5 g/dL (12.0-15.5); LYMPH # 1.8 x10^3/uL (1.0-4.8); LYMPH % 29 % (24-48); MEAN CORPUSCULAR HEMOGLOBIN 30 pg (25-35); MEAN CORPUSCULAR HGB CONC 34 g/dL (31-37); MEAN CORPUSCULAR VOLUME 89 fL (79-100); MONO # 0.5 x10^3/uL (0.0-1.1); MONO % 8 % (0-9); NEUT # 3.9 x10^3uL (1.8-7.7); NEUT % 62 % (31-73); PLATELET COUNT 172 x10^3/uL (140-400); RED BLOOD COUNT 4.86 x10^6/uL (3.50-5.40); RED CELL DISTRIBUTION WIDTH 13.6 % (11.5-14.5); WHITE BLOOD COUNT 6.3 x10^3/uL (4.0-11.0)
[2017-09-01 07:50] LABS: ALBUMIN 3.8 g/dL (3.4-5.0); ALBUMIN/GLOBULIN RATIO 1.2 (1.0-1.7); CALCIUM 8.5 mg/dL (8.5-10.1); CREATININE 1.3 mg/dL (0.6-1.0); GFR 40.6; POTASSIUM 4.3 mmol/L (3.5-5.1); TOTAL BILIRUBIN 0.4 mg/dL (0.2-1.0)
[2017-09-01 14:22] LABS: FREE T4 1.34 ng/dL (0.76-1.46)
[2017-09-01 14:23] LABS: THYROID STIM HORMONE (TSH) 1.18 uIU/mL (0.358-3.740)
[2017-09-02 02:11] LABS: HEMOGLOBIN A1C 8.4 % (4.8-5.6)
== END | disposition home or self-care (01) ==
LOC: LAB 07:05
PROVIDERS: ATTEND Physician Assistant Medical
DX: I13.0 Hypertensive heart and chronic kidney disease with heart failure and stage 1 through stage 4 chronic kidney disease, or unspecified chronic kidney disease (principal); E11.22 Type 2 diabetes mellitus with diabetic chronic kidney disease; I50.22 Chronic systolic (congestive) heart failure; N18.9 Chronic kidney disease, unspecified; K21.9 Gastro-esophageal reflux disease without esophagitis; E03.9 Hypothyroidism, unspecified; J44.0 Chronic obstructive pulmonary disease with (acute) lower respiratory infection
CPT/HCPCS: 36415; 80053; 80061; 83036; 84439; 84443; 84481; 85025

== ENCOUNTER → 2017-12-31 | Outpatient (CLI) | payer MEDICARE, BC ==
[~2017-12-31] MED LIST changes: -LOSA50TA6 PO; +LOSA50TA7 PO
--- NOTE | 2017-12-31 13:33 | RAD ---
Examination: Ultrasound kidneys HISTORY: History of dysuria, bladder infection COMPARISON: None available FINDINGS: The right kidney measures 13.1 x 5.0 x 5.5 cm. The left kidney measures 12.8 x 5.2 x 5.9 cm. There is a small septated cyst measuring 1 cm identified in the inferior pole of the left kidney. Urinary bladder is mildly distended with prevoid volume measuring 81 mL. Postvoid the bladder is empty. IMPRESSION: 1. A 1 cm septated cyst identified in the inferior pole of the left kidney. Follow-up examination is recommended to document stability. Electronically signed by: Armen Sibley MD (12/31/2017 1:30 PM) [facility]
== END | disposition home or self-care (01) ==
LOC: US 08:41
PROVIDERS: ATTEND Physician Assistant Medical
DX: N28.1 Cyst of kidney, acquired (principal); N30.80 Other cystitis without hematuria; R30.0 Dysuria
CPT/HCPCS: 76770

== ENCOUNTER → 2019-01-13 | Outpatient (CLI) | payer MEDICARE, BC ==
[~2019-01-13] MED LIST changes: +AMIO200T4 PO; -CARV12.52 PO; +CARV12.547 PO; +CITA20TA6 PO; +CLOP75TA PO; +FENO145T3 PO; -FENO145T30 PO; +HYDR-2763 PO; -LOSA50TA7 PO; +LOSA50TA86 PO; +MAGN400T44 PO; +MONT10TA80 PO; -MONT10TA9 PO; +PHEN37.5 PO; +POTA20TA4 PO; -POTA20TA82 PO; +SACU1TAB4 PO; +WARF1TAB74 PO
--- NOTE | 2019-01-13 14:19 | RAD ---
EXAM: Right foot 3 views. HISTORY: Right foot pain. COMPARISON: None. FINDINGS: Three views of the right foot are obtained. There is soft tissue swelling along the dorsum of the forefoot. No fractures are identified. Alignment is normal. There is mild first metatarsophalangeal osteoarthritis. There is a moderate plantar calcaneal spur. IMPRESSION: 1. Soft tissue swelling along the forefoot. 2. Mild first metatarsophalangeal osteoarthritis. Electronically signed by: Hussein Pichardo MD (01/13/2019 2:16 PM) [facility]
== END | disposition home or self-care (01) ==
LOC: DXRAD 08:15
PROVIDERS: ATTEND Physician Assistant Medical
DX: M19.071 Primary osteoarthritis, right ankle and foot (principal); M79.89 Other specified soft tissue disorders
CPT/HCPCS: 73630

== ENCOUNTER 2019-01-21 22:20 | Inpatient (IN) | payer MEDICARE, BC ==
[~2019-01-21] VITALS: Ht 5.1 cm; Wt 95.3 kg
[~2019-01-21 22:20] MED LIST changes: -AMIO200T4 PO; -CITA20TA6 PO; -CLOP75TA PO; -HYDR-2763 PO; -MAGN400T44 PO; -PHEN37.5 PO; -SACU1TAB4 PO; -WARF1TAB74 PO
[2019-01-21] MEDS ORDERED: IV NORMAL SALINE 1,000ML 1,000 ML IV SCH (22:24)
--- NOTE | 2019-01-21 22:29 | PHYS DOC ---
Past History Past Medical History: Anxiety, CAD, Cancer, CHF, COPD, Diabetes, GERD, High Cholesterol, Hypertension, VT, Renal Disease, Other Past Surgical History: Cancer Surgery, Hysterectomy, Pacemaker, Tonsillectomy, Other Smoking: Non-smoker Alcohol Use: Occasionally Drug Use: None Adult General Chief Complaint Chief Complaint: CHEST PAIN............." Chest hurt s here on Rt. side.. and my sugars are over 400... " HPI HPI Patient is a 73 year old female who presents with above hx and complaints Rt side Chest pain and hyperglycemia. She admits to dietary and medicine noncompliance. Patient states she did participate heavily in her intake of Thanksgiving dinner. Patient states her chest pain is somewhat related to deep breaths and cough. Patient does have a history of hypertension diabetes, elevated lipids coronary artery disease, CHF, and COPD. Patient has had previous coronary artery bypass surgery and does have a pacer. Patient normally follows with Dr. Oconnell. No recent travel or specific ill contacts.. Review of Systems Review of Systems Constitutional: Denies fever or chills [] Eyes: Denies change in visual acuity, redness, or eye pain [] HENT: Denies nasal congestion or sore throat [] Respiratory: History cough and wheezing Cardiovascular: No additional information not addressed in HPI [] GI: Denies abdominal pain, nausea, vomiting, bloody stools or diarrhea [] : Denies dysuria or hematuria [] Musculoskeletal: Denies back pain or joint pain [] Integument: Denies rash or skin lesions [] Neurologic: Denies headache, focal weakness or sensory changes [] Endocrine history of elevated blood sugars and polyuria All other systems were reviewed and found to be within normal limits, except as documented in this note. Family History Family History Noncontributory Current Medications Current Medications See nursing for home meds Allergies Allergies Allergies Coded Allergies Type Severity Reaction Last Updated Verified insulin glargine Allergy Intermediate 10/27/16 Yes Physical Exam Physical Exam Constitutional: no acute distress, non-toxic appearance. [] HENT: Normocephalic, atraumatic, bilateral external ears normal, oropharynx dry, no oral exudates, nose normal. [] Eyes: PERRLA, EOMI, conjunctiva normal, no discharge. [] Neck: Normal range of motion, no tenderness, supple, no stridor. [] Cardiovascular:Heart rate regular rhythm, no murmur []PMI to the left. Lungs & Thorax: Bilateral breath sounds with apex with scattered wheezes throughout on auscultation []Center. Scars Abdomen: Bowel sounds normal, soft, no tenderness, no masses, no pulsatile masses. Old scars. Obese. No right upper quadrant tenderness. No rebound. Skin: Warm, dry, no erythema, no rash. [] Back: No tenderness, no CVA tenderness. [] Extremities: No tenderness, no cyanosis, no clubbing, ROM intact, no edema. [Arthritic changes. No cording in legs. Neurologic: Alert and oriented X 3, his extremities are glasses. Has distal sensory, no focal deficits noted. [] Psychologic: Affect anxious, judgement normal, mood normal. [] EKG EKG My interpretation EKG shows a sinus rhythm at 85 bpm. There is some nonspecific T-wave changes have prolonged QT interval at 412 ms and QT c at 496 ms. no findings acute STEMI with contralateral changes. Radiology/Procedures Radiology/Procedures [][place] [address] IMAGING REPORT Signed PATIENT: LAURE SIERRA MACCOUNT: [id number] : 1945 LOCATION: ER AGE: 73 SEX: F EXAM STATUS: REG ER ORD. PHYSICIAN: WILLIAMS CAST MD REASON: Chest pain. Hx pacemaker,defibrillator,stent PROCEDURE: CHEST PA & LATERAL INDICATION: Chest pain COMPARISON: February 2017 FINDINGS: 2 view of chest obtained. Cardiomediastinal silhouette is enlarged with AICD seen. Lungs are similar in appearance when compared to prior without a definite new region of focal airspace consolidation. Degenerative changes of spine IMPRESSION: * No definite new region of focal airspace consolidation. Electronically signed by: Tres Mccauley MD (01/21/2019 11:53 PM) [facility] DICTATED AND SIGNED BY: TRES MCCAULEY MD DATE: 01/21/19 0607 CC: WILLIAMS CAST MD; PILAR OCONNELL MD ~ Course & Med Decision Making Course & Med Decision Making Pertinent Labs and Imaging studies reviewed. (See chart for details) Pt. admitted to Dr Cobb, with cardiology consult. Will start Insulin qtt. Not in marked acidosis. Suspect component of noncompliance with diet and meds. We'll obtain a ultrasound legs in the morning. Heart Score= 6 Impression: 1. Chest Pain 2. DM - Hyperglycemia 400's 3. Leukocytosis 11.1 4. Hypomagnesium 1.5 5. Renal Dz, Elevated BUN/Crea 26/2.0 6. Elevated Bili, Direct, Total and Indirect 7. Elevated BNP 938- Hx.CHF 8. Elevated D Dimer 0.75 9. COPD [] Dragon Disclaimer Dragon Disclaimer This electronic medical record was generated, in whole or in part, using a voice recognition dictation system. Departure Departure: Disposition: 01 HOME/RESIDENCE PRIOR TO ADM Condition: STABLE Referrals: PILAR OCONNELL MD (PCP) John Disclaimer This chart was dictated in whole or in part using Voice Recognition software in a busy, high-work load, and often noisy Emergency Department environment. It may contain unintended and wholly unrecognized errors or omissions. WILLIAMS CAST MD Jan 21, 2019 22:29
[2019-01-21] MEDS ORDERED: ASPIRIN 81 MG TAB.CHEW PO ONE (22:30)
[2019-01-21] MEDS ORDERED: INSULIN REGULAR VIAL 150 UNIT in 0.9 % SODIUM CHLORIDE 150ML 150 ML IV ONE ×2 (22:30→23:45)
--- NOTE | 2019-01-21 22:52 | EKG ---
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
[2019-01-21 22:54] LABS: BASO % 0 % (0-3); EOS % 0 % (0-3); HEMATOCRIT 37.8 % (36.0-47.0); HEMOGLOBIN 12.3 g/dL (12.0-15.5); LYMPH # 0.2 x10^3/uL (1.0-4.8); LYMPH % 2 % (24-48); MEAN CORPUSCULAR HEMOGLOBIN 30 pg (25-35); MEAN CORPUSCULAR HGB CONC 33 g/dL (31-37); MEAN CORPUSCULAR VOLUME 91 fL (79-100); MONO # 0.4 x10^3/uL (0.0-1.1); MONO % 4 % (0-9); NEUT # 10.4 x10^3uL (1.8-7.7); NEUT % 94 % (31-73); PLATELET COUNT 121 x10^3/uL (140-400); RED BLOOD COUNT 4.15 x10^6/uL (3.50-5.40); RED CELL DISTRIBUTION WIDTH 13.1 % (11.5-14.5); WHITE BLOOD COUNT 11.1 x10^3/uL (4.0-11.0)
[2019-01-21 23:00] LABS: BGAS PH 7.46 (7.35-7.45)
[2019-01-21 23:14] LABS: CALCIUM 8.1 mg/dL (8.5-10.1); DIRECT BILIRUBIN 1.1 mg/dL (0.0-0.2); GFR 24.6; MAGNESIUM 1.5 mg/dL (1.8-2.4); POTASSIUM 3.9 mmol/L (3.5-5.1); TOTAL BILIRUBIN 1.6 mg/dL (0.2-1.0); TOTAL PROTEIN 6.1 g/dL (6.4-8.2)
[2019-01-21] MEDS ORDERED: ENOXAPARIN ** NOTE DOSE ** SYRINGE SQ ONE (23:45)
[2019-01-21] MEDS ORDERED: ONDANSETRON PF 4 MG/2 ML VIAL. IV PRN (23:45)
[2019-01-21] MEDS ORDERED: ACETAMINOPHEN 325 MG TABLET PO PRN (23:45)
[2019-01-21] MEDS ORDERED: IV RINGERS SOLUTION,LACTATED 1,000 ML IV ONE (23:45)
--- NOTE | 2019-01-21 23:55 | RAD ---
INDICATION: Chest pain COMPARISON: February 2017 FINDINGS: 2 view of chest obtained. Cardiomediastinal silhouette is enlarged with AICD seen. Lungs are similar in appearance when compared to prior without a definite new region of focal airspace consolidation. Degenerative changes of spine IMPRESSION: * No definite new region of focal airspace consolidation. Electronically signed by: Cody Mccauley MD (01/21/2019 11:53 PM) [facility]
[2019-01-22] MEDS ORDERED: 0.9 % SODIUM CHLORIDE 150ML 150 ML ONE (00:05)
--- NOTE | 2019-01-22 01:10 | NUR ---
Pt was admitted to [address] [place] [address] [facility], accompanied by EMS and nursing staff. Pt transferred from bed to [facility] x3. Admission assessment completed. Pt here for hyperglycemia, Headache and chest discomfort. POCT done with result of 242, GlucoStabilizer restarted. VSS. Health history and home medications reviewed with pt. Plavix for VTE. Pt was given written information regarding hospital policies, unit procedures and contact persons. Valuables were checked and left at bedside. Call light within reach. Will cont to monitor.
[2019-01-22 01:20] LABS: BARBITURATES NEG (NEG); BENZODIAZEPINES NEG (NEG); CANNABINOIDS NEG (NEG); COCAINE NEG (NEG); METHADONE NEG (NEG); OPIATES POS (NEG); PHENCYCLIDINE NEG (NEG)
[2019-01-22 01:28] LABS: AMPHETAMINE/METHAMPHETAMINE NEG (NEG)
[2019-01-22 01:30] VITALS: BP 133/68
[2019-01-22 01:36] LABS: BILIRUBIN,URINE NEG (NEG); CLARITY,URINE CLEAR; COLOR,URINE YELLOW; GLUCOSE,URINE >=1000 mg/dL (NEG)
[2019-01-22 01:37] LABS: BACTERIA,URINE FEW /HPF (0-FEW); NITRITE,URINE NEG (NEG); RBC,URINE 0 /HPF (0-2); SQUAMOUS EPITHELIAL CELL,UR MOD /LPF; UROBILINOGEN,URINE 1 mg/dL (0.2 mg/dL)
[2019-01-22] MEDS: NITROGLYCERIN OINT 1 GM PACKET. TP SCH ×3 (01:38→20:20)
[2019-01-22] MEDS ORDERED: DEXTROSE 50% 25 GM / 50ML DISP.SYRIN. IV PRN (01:45)
[2019-01-22] MEDS ORDERED: INSULIN REGULAR VIAL 150 UNIT in 0.9 % SODIUM CHLORIDE 150ML 150 ML IV PRN (01:45)
[2019-01-22] MEDS: MORPHINE SULFATE 4 MG/ML DISP.SYRIN. IV PRN ×2 (02:01→15:39)
[2019-01-22] MEDS ORDERED: MAGNESIUM SULFATE 2GM 50 ML IV ONE (02:30)
[2019-01-22] MEDS ORDERED: CITA20TA6 PO ×2 (04:26→04:27)
[2019-01-22] MEDS ORDERED: PHEN37.5 PO (04:26)
[2019-01-22] MEDS ORDERED: AMIO200T4 PO (04:26)
[2019-01-22] MEDS ORDERED: LEVO100T PO (04:26)
[2019-01-22] MEDS ORDERED: CLOP75TA PO (04:26)
[2019-01-22] MEDS ORDERED: HYDR-2763 PO (04:26)
[2019-01-22] MEDS ORDERED: FURO-69 PO (04:26)
[2019-01-22] MEDS ORDERED: MAGN400T44 PO (04:27)
[2019-01-22] MEDS ORDERED: SACU1TAB4 PO (04:27)
[2019-01-22 05:45] VITALS: BP 106/67
[2019-01-22 06:09] LABS: CREATININE 1.7 mg/dL (0.6-1.0); GFR 29.6; POTASSIUM 3.3 mmol/L (3.5-5.1)
[2019-01-22 06:14] LABS: BASO % 0 % (0-3); EOS % 1 % (0-3); HEMATOCRIT 35.8 % (36.0-47.0); HEMOGLOBIN 11.8 g/dL (12.0-15.5); LYMPH # 0.3 x10^3/uL (1.0-4.8); LYMPH % 4 % (24-48); MEAN CORPUSCULAR HEMOGLOBIN 30 pg (25-35); MEAN CORPUSCULAR HGB CONC 33 g/dL (31-37); MEAN CORPUSCULAR VOLUME 91 fL (79-100); MONO # 0.3 x10^3/uL (0.0-1.1); MONO % 4 % (0-9); NEUT # 6.6 x10^3uL (1.8-7.7); NEUT % 91 % (31-73); PLATELET COUNT 115 x10^3/uL (140-400); RED BLOOD COUNT 3.92 x10^6/uL (3.50-5.40); RED CELL DISTRIBUTION WIDTH 13.5 % (11.5-14.5); WHITE BLOOD COUNT 7.3 x10^3/uL (4.0-11.0)
[2019-01-22] MEDS: IPRATRPIUM/ALBUTEROL 0.5/2.5MG 3 ML NEBU. NEB SCH ×2 (08:00→12:26)
[2019-01-22] MEDS ORDERED: ELECTROLYTE (ICU) PROTOCOL. MC PRN (08:45)
[2019-01-22] MEDS ORDERED: ALPRAZolam 0.25 MG TABLET PO PRN (08:45)
[2019-01-22] MEDS ORDERED: CLOPIDOGREL BISULFATE 75 MG TABLET PO SCH ×2 (09:00)
[2019-01-22] MEDS: FUROSEMIDE 20 MG TABLET PO SCH ×2 (09:00→20:44)
[2019-01-22] MEDS ORDERED: CITALOPRAM 20 MG TABLET. PO SCH (09:00)
[2019-01-22] MEDS ORDERED: NON FORMULARY ITEM (Phentermine Hcl 37.5 MG) PO SCH (09:00)
--- NOTE | 2019-01-22 09:11 | RAD ---
STUDY: VENOUS LOWER EXT BILATERAL INDICATION: Chest pain. TECHNIQUE: Color-flow and pulsed wave duplex ultrasound with compression of venous structures of the bilateral lower extremities. COMPARISON: 04/22/2017. FINDINGS: Duplex ultrasound with compression of the deep venous structures of the bilateral lower extremities from the common femoral vein through the popliteal vein is negative for DVT. The posterior tibial and peroneal veins are segmentally visualized and patent where seen. Normal venous waveforms and augmentation are noted throughout. IMPRESSION: No deep venous thrombosis seen throughout either lower extremity. Electronically signed by: BILYL MARTIN MD (01/22/2019 9:08 AM) [facility]
--- NOTE | 2019-01-22 09:18 | NUR ---
NSG NOTE; INSULIN GTT DC'D PER DR ESTRADA'S VERBAL ORDERS
[2019-01-22] MEDS ORDERED: HYDROcodone/APAP 7.5/325MG 1 TAB TABLET PO SCH (09:30)
[2019-01-22] MEDS: SPIRONOLACTONE 25 MG TABLET PO SCH (09:30)
[2019-01-22] MEDS: ASPIRIN ENTERIC COATED 81 MG TABLET.DR. PO SCH (09:31)
[2019-01-22] MEDS: CITALOPRAM 20 MG TABLET. PO SCH (09:31)
[2019-01-22] MEDS: GABAPENTIN 100 MG CAPSULE. PO SCH ×2 (09:32→20:19)
[2019-01-22] MEDS: POTASSIUM CHLORIDE 20 MEQ TABLET.ER. PO SCH (09:33)
[2019-01-22] MEDS: PANTOPRAZOLE 40 MG TABLET. PO SCH (09:33)
[2019-01-22] MEDS: CARVEDILOL 12.5 MG TABLET PO SCH ×2 (09:34→20:19)
[2019-01-22] MEDS: AMIODARONE HCL 200 MG TABLET PO SCH (09:34)
--- NOTE | 2019-01-22 10:19 | RAD ---
CT abdomen and pelvis without contrast PQRS statement: CT scans at this facility use dose reduction including either automated exposure control, iterative reconstructions, and /or weight based radiation dosing via mA and kV modification when appropriate to reduce radiation dose to as low as reasonably achievable. HISTORY: Elevated liver function tests. COMPARISON: Abdomen ultrasound December 31, 2017. Abdomen findings: 4 mm solid nodule right lower lobe image 11. Small calcified granulomas left lower lobe. There is smooth interstitial thickening at the lung bases could indicate mild interstitial edema. Cardiac pacemaker. Left mastectomy. Lower lumbar spine disc bulges and facet spurring. Liver, gallbladder, pancreas, adrenals, spleen unremarkable. Bilateral perinephric edema. No urinary calculi or hydronephrosis. Calcified likely aorta and iliac arteries. Appendix is negative. No obstruction or inflammatory changes in GI tract. No abdominal fluid. Mild eventration of the right diaphragm containing a portion of the liver dome. Pelvis findings: Right ovary unremarkable. Left ovary and uterus surgically absent. No bladder calculi. Rectum and bones are unremarkable. IMPRESSION: 1. No acute process in the abdomen or pelvis. The appendix is negative. 2. Bilateral perinephric edema could indicate renal insufficiency. No urinary calculi or hydronephrosis. 3. Mild interstitial thickening lung bases may indicate mild edema. 4. 4 mm solid nodule right lower lobe. Per Fleischner guidelines if the patient has risk factors for malignancy optional CT follow-up in 12 months would be advised, otherwise no follow-up may be necessary. Electronically signed by: Dong Chin MD (01/22/2019 10:16 AM) [facility]
--- NOTE | 2019-01-22 10:24 | HP ---
ADMIT DATE: 01/21/2019 HISTORY OF PRESENT ILLNESS: A 73-year-old female patient came in through the Emergency Room yesterday with complaint of right-sided chest pain and hyperglycemia. The patient admits she is noncompliant with her dietary medications and was eating heavily with her problem with her Thanksgiving dinner. The patient is followed by Dr. Oconnell in the usual basis. The patient was seen in the Emergency Room. She was noted to have some right-sided chest pain radiating up into her neck. The patient's also blood sugars were elevated. She was running a low-grade temperature as well. Her blood sugars were in the upper 300s. She also showed some signs of dehydration, although her urine was negative for ketones. The patient was brought in to rule out [place] protocol and further evaluation on her with her results of her getting her blood sugar under control. She also had a positive D-dimer. V/Q scan is pending. The patient has some elevated liver enzymes, not sure if these are chronic or not, but she does have a markedly distended abdomen, although she does not complain of any nausea or vomiting. Says she has these continually. In any case, the patient was admitted for rule out [place] protocol, hyperglycemia and abdominal distention. PAST MEDICAL HISTORY: Syncope, heart attacks, congestive heart failure, cardiomyopathy, coronary artery disease with stent by Dr. Grant, pacemaker placement, internal defibrillator. The patient is on Plavix, hypercholesterolemia, hypertension, DVT, COPD, left breast mastectomy, salpingotomy, oophorectomy, bilateral carpal tunnel surgery, cyst removal of the left hand, type 2 diabetes poorly controlled, hypothyroidism, psychiatric problems of depression, anxiety and history of breast cancer. IMMUNIZATIONS: Tetanus, influenza, pneumococcal all up-to-date. FAMILY HISTORY: Son with diabetes. Father with renal failure. Brother with coronary artery disease. Mother of CHF. ALLERGIES: The patient says she has an adverse reaction to INSULIN GLARGINE. SOCIAL HISTORY: She denies smoking, alcohol or drug use. She is a full code. REVIEW OF SYSTEMS: CONSTITUTIONAL: The patient denies headaches, visual changes, blurred vision or double vision. Denies any weakness on either side of her body. The patient notes no blurred vision, double vision. Does have chest pain in her right chest wall radiating up into her neck and jaw area. The patient says it is relieved now. LUNGS: She says she has no shortness of breath. ABDOMEN: The patient's abdomen is markedly distended, tender. Decreased bowel movements. NEUROLOGIC: Neurologically baseline for her. PHYSICAL EXAMINATION: GENERAL: This is a very pleasant female, in no apparent distress. VITAL SIGNS: Blood pressure is that of 133/60, respiratory rate 20, pulse 90, temperature anywhere from 100.3 down to 97.6. HEENT: The patient's head was atraumatic, normocephalic. Eyes were PERRLA. Mouth and throat: Poor dentition. NECK: Supple. There is no JVD, carotid bruits. No thyromegaly. LUNGS: Diminished, but clear. CARDIOVASCULAR: Regular sinus rhythm, S1, S2, without murmur, rub, thrill, or extra heart sound. ABDOMEN: Was markedly distended. No rebounding or guarding, but very firm to touch. No hepatosplenomegaly noted. Positive bowel sounds. EXTREMITIES: No clubbing, cyanosis. There was trace edema noted to the extremities. Pulses are slightly diminished in the dorsal ____. NEUROLOGIC: The patient was alert and oriented. Speech was fluent, spontaneous and appropriate. Cranial nerves 2-12 are grossly intact. Moving all extremities well. LABORATORY DATA: Her white count was 11,000, hemoglobin and hematocrit 12 and 37, platelets slightly low at approximately 115,000. The patient's chemistry showed sodium of 132, potassium went down to 3.3. Electrolyte replacement done and creatinine show decreased renal function of approximately 29.6. As noted earlier, blood sugar initially was about 360. Cardiac enzymes are negative. She had elevated liver enzymes, 269 AST, ALT of 224, total bilirubin 1.6. PLAN: The patient will be admitted for further evaluation of this multiplicity of medical problems including chest pain, history of coronary artery disease, rule out [place] protocol, hyperglycemia. The patient was placed on an insulin drip down in the ER, hydrated, chronic kidney disease stage 4, elevated liver enzymes, hyperbilirubinemia, marked abdominal distention, hypokalemia, positive D-dimer. We will get a V/Q scan, CT of the abdomen and pelvis. Consult with Cardiology and make further evaluation on these other medical issues. Blood sugars are coming down. She was becoming rehydrated. TORY ESTRADA MD DR: Angelito JOB#: [id number] / [id number]
[2019-01-22] MEDS ORDERED: SACUBITRIL/VALSARTAN 49/51MG TABLET. PO SCH ×3 (10:30)
[2019-01-22 11:20] VITALS: BP 107/63
--- NOTE | 2019-01-22 12:40 | RAD ---
Ventilation/perfusion lung scan COMPARISON: Chest x-ray January 13, 2019. HISTORY: Elevated d-dimer, shortness of breath. TECHNIQUE: 15 mCi xenon-133 inhaled. 5.5 mCi technetium 99m macroaggregated albumin intravenous. FINDINGS: The left upper lobe on the DENNY projection demonstrates a large perfusion defect involving the upper lobe anterior segment as well as probable superior lingula. On the LPO projection there is a moderate defect of the left upper lobe apicoposterior segment. These are less well visualized on the AP views which limits assessment for whether this is matched or mismatched as only AP views are provided on the ventilatory images which show no defect at the left upper lobe. The anterior projection may demonstrate some intact ventilatory activity at the lingula which is absent on the anterior perfusion projections which may suggest these are mismatched. Given the possibility that these are mismatched, these would be considered high probability for pulmonary emboli using the modified PIOPED criteria. Small pseudodefect right upper lobe on the WALDRON projection due to the patient's pacemaker. No additional perfusion defects evident. IMPRESSION: Perfusion defects of the left upper lobe and lingula as described above. FOR INTERNAL CODING PURPOSES Critical result: Findings discussed with the patient's nurse Apoorva Ronquillo at 01/22/2019 12:36 PM. Read back of report was performed. The nurse is calling the treating physician with these results. RESULT CODE: (C) Electronically signed by: Dong Chin MD (01/22/2019 12:37 PM) [id number]
[2019-01-22] MEDS ORDERED: IPRATRPIUM/ALBUTEROL 0.5/2.5MG 3 ML NEBU. NEB PRN (12:45)
[2019-01-22] MEDS: LEVOTHYROXINE 100 MCG TABLET PO SCH (12:49)
[2019-01-22] MEDS: INSULIN LISPRO 300 UNITS/3 ML VIAL. SQ SCH ×2 (12:56→16:57)
[2019-01-22] MEDS: ENOXAPARIN ** NOTE DOSE ** SYRINGE SQ SCH ×2 (12:59→23:21)
[2019-01-22 13:59] LABS: THYROID STIM HORMONE (TSH) 2.092 uIU/mL (0.358-3.740)
[2019-01-22 14:25] VITALS: BP 113/68
[2019-01-22 19:22] VITALS: BP 97/63
[2019-01-22] MEDS: ATORVASTATIN CALCIUM 20 MG TABLET PO SCH (20:19)
[2019-01-22] MEDS: FENOFIBRATE NANOCRYSTALLIZED 145 MG TABLET PO SCH (20:19)
[2019-01-22] MEDS: MAGNESIUM HYDROXIDE 2,400 MG/30 ML ORAL.SUSP. PO SCH (20:19)
[2019-01-22] MEDS ORDERED: INSULIN GLARGINE SYRINGE. SQ SCH (21:00)
[2019-01-22] MEDS: SACUBITRIL/VALSARTAN 49/51MG TABLET. PO SCH (21:00)
[2019-01-22] MEDS: INSULIN GLARGINE SYRINGE. SQ SCH (23:25)
[2019-01-22 23:30] VITALS: BP 118/72
[2019-01-23 03:08] LABS: HEMOGLOBIN A1C 8.4 % (4.8-5.6)
[2019-01-23] MEDS: NITROGLYCERIN OINT 1 GM PACKET. TP SCH (05:44)
[2019-01-23] MEDS ORDERED: METOCLOPRAMIDE HCL 10 MG/2 ML VIAL. IVP ONE (08:30)
[2019-01-23] MEDS: IPRATRPIUM/ALBUTEROL 0.5/2.5MG 3 ML NEBU. NEB SCH ×4 (08:44→22:13)
[2019-01-23] MEDS ORDERED: IPRATRPIUM/ALBUTEROL 0.5/2.5MG 3 ML NEBU. NEB PRN (08:45)
[2019-01-23] MEDS: LEVOTHYROXINE 100 MCG TABLET PO SCH (08:47)
[2019-01-23] MEDS: ASPIRIN ENTERIC COATED 81 MG TABLET.DR. PO SCH (08:47)
[2019-01-23] MEDS: CARVEDILOL 12.5 MG TABLET PO SCH ×2 (08:48→20:57)
[2019-01-23] MEDS: PANTOPRAZOLE 40 MG TABLET. PO SCH (08:48)
[2019-01-23] MEDS: RIVAROXABAN 15 MG TABLET. PO SCH ×2 (08:48→17:08)
[2019-01-23] MEDS: GABAPENTIN 100 MG CAPSULE. PO SCH ×2 (08:48→20:56)
[2019-01-23] MEDS: POTASSIUM CHLORIDE 20 MEQ TABLET.ER. PO SCH (08:49)
[2019-01-23] MEDS: FUROSEMIDE 20 MG TABLET PO SCH ×2 (08:49→21:00)
[2019-01-23] MEDS: MAGNESIUM OXIDE 400 MG TABLET PO SCH (08:49)
[2019-01-23] MEDS: SPIRONOLACTONE 25 MG TABLET PO SCH (08:50)
[2019-01-23 08:58] LABS: CALCIUM 8.1 mg/dL (8.5-10.1); CREATININE 1.5 mg/dL (0.6-1.0); GFR 34.2
[2019-01-23 08:59] VITALS: BP 151/75
[2019-01-23] MEDS: SACUBITRIL/VALSARTAN 49/51MG TABLET. PO SCH ×3 (09:00→21:00)
--- NOTE | 2019-01-23 09:05 | CONS ---
DATE OF CONSULTATION: 01/23/2019 REASON FOR CONSULTATION: Chest pain. CONSULTING PHYSICIAN: Dr. Noland. HISTORY OF PRESENT ILLNESS: The patient is a pleasant 73-year-old woman with past medical history as noted below, who presented to the hospital in the setting of multiple complaints. Today, in speaking with her, she said that over the last couple of days, she has had worsening headaches, nausea, overall fatigue and some chest discomfort, which felt like a pressure on her chest. Upon arrival to the ER, her initial vital signs were stable. She was afebrile, heart rate 85, respiratory rate 18, and blood pressure 116/50 with a pulse oxygenation of 95% on room air. Subsequent evaluation in the ER during the workup revealed an elevated D-dimer and this led to further evaluation including a V/Q scan, which revealed a mismatch defect in the lingula. She was then diagnosed with a pulmonary embolus and admitted for further evaluation and treatment. Since admission, she has also undergone evaluation of her abdominal pain and nausea with a CT scan, which did not reveal any pathology. From a purely cardiac standpoint, she reports chronic dyspnea, but denies any chest pain. She has undergone extensive evaluation recently as noted below. Currently, she is complaining of continued nausea and headache. Denies any active anginal symptoms. PAST MEDICAL HISTORY: 1. Ischemic cardiomyopathy, status post PCI to the LAD with a cardiac catheterization in 2019 demonstrating patent stents with small vessel disease. 2. Status post [employer] dual chamber ICD for ejection fraction of 25%. 3. Peripheral arterial disease, status post PVI to the left superficial femoral artery with 1-vessel runoff [id number] bilaterally. The last angiogram in 2018. 4. Chronic kidney disease with baseline creatinine of 1.6. 5. Hypertension. 6. Type 2 diabetes. 7. Dyslipidemia. 8. Hypothyroidism. SOCIAL HISTORY: No alcohol, tobacco or illicit drug use. FAMILY HISTORY: Noncontributory. ALLERGIES: To GLARGINE INSULIN. CURRENT CARDIOVASCULAR MEDICATIONS: 1. Xarelto 15 mg p.o. b.i.d. 2. Entresto 49/51 mg p.o. b.i.d. 3. Atorvastatin 40 mg. 4. Fenofibrate 145 mg. 5. Spironolactone 25 mg daily. 6. Furosemide 20 mg p.o. b.i.d. 7. Carvedilol 12.5 mg p.o. b.i.d. 8. Aspirin 81 mg p.o. daily. 9. Amiodarone 200 mg daily. REVIEW OF SYSTEMS: Negative unless otherwise mentioned above in HPI. PHYSICAL EXAMINATION: VITAL SIGNS: 97.8, 76, 20, 118/72, 94% on room air. GENERAL: She appears to be fatigued, flustered and overall has multiple complaints. NECK: Obese. Neck veins are flat. CARDIAC: Regular rate and rhythm without any obvious murmurs noted. Distant heart sounds. LUNGS: Clear to auscultation bilaterally. ABDOMEN: Obese, protuberant and nontender, but appears distended. EXTREMITIES: She has no significant lower extremity edema. Right foot has bruising related to recent trauma. NEUROLOGIC: No focal deficits. MUSCULOSKELETAL: No obvious fractures or trauma noted except as noted above. DIAGNOSTIC STUDIES: CT abdomen and pelvis: No acute abnormalities. Pulmonary perfusion imaging suggestive of perfusion defects in the left upper lobe consistent with high probability of pulmonary embolus. Lower extremity DVT scan reveals no obvious deep venous thrombosis in the lower extremities. Chest x-ray does not reveal any obvious focal airspace disease. EKG demonstrates sinus rhythm with prior inferior, septal, and inferior infarcts. Cardiac catheterization in 2019 revealed patent stent and small vessel disease of a diagonal branch. Echocardiogram 2019 revealed ejection fraction of 25%. IMPRESSION: 1. Multiple noncardiac complaints with dyspnea: Differential diagnosis is broad, but at this present time, it appears to be related to her possible pulmonary embolus based on the V/Q scan. 2. Chronic systolic and diastolic heart failure secondary to ischemic cardiomyopathy, currently appears euvolemic. 3. Chronic kidney disease, currently at baseline. 4. Hypertension, currently well controlled. RECOMMENDATIONS: 1. At this present time, no further aggressive need for diuresis. Continue the patient's home medications. 2. Continue treatment per protocol for her pulmonary embolus. 3. We will follow along closely. Thank you for this consultation. KRISTI BRAVO MD DR: RONN/barak JOB#: [id number] / [id number]
[2019-01-23 09:08] LABS: BASO % 1 % (0-3); EOS # 0.1 x10^3/uL (0.0-0.7); EOS % 1 % (0-3); HEMATOCRIT 39.5 % (36.0-47.0); HEMOGLOBIN 12.8 g/dL (12.0-15.5); LYMPH # 0.3 x10^3/uL (1.0-4.8); LYMPH % 9 % (24-48); MEAN CORPUSCULAR HEMOGLOBIN 30 pg (25-35); MEAN CORPUSCULAR HGB CONC 32 g/dL (31-37); MEAN CORPUSCULAR VOLUME 91 fL (79-100); MONO # 0.3 x10^3/uL (0.0-1.1); MONO % 7 % (0-9); NEUT # 3.2 x10^3uL (1.8-7.7); NEUT % 82 % (31-73); PLATELET COUNT 116 x10^3/uL (140-400); RED BLOOD COUNT 4.32 x10^6/uL (3.50-5.40); RED CELL DISTRIBUTION WIDTH 13.8 % (11.5-14.5); WHITE BLOOD COUNT 3.8 x10^3/uL (4.0-11.0)
[2019-01-23] MEDS: AMIODARONE HCL 200 MG TABLET PO SCH (10:27)
[2019-01-23] MEDS: CITALOPRAM 20 MG TABLET. PO SCH (10:29)
[2019-01-23] MEDS: INSULIN LISPRO 300 UNITS/3 ML VIAL. SQ SCH ×3 (10:39→17:13)
[2019-01-23 11:41] VITALS: BP 160/84
--- NOTE | 2019-01-23 12:00 | NUR ---
Patient complains of nausea and vomiting episodes this am, no sight of vomiting seen by nurse but patient has had decreased appetite throughout day. Patient is states she is very tired and has not slept well. X1 dose of reglan given with effectiveness.
[2019-01-23] MEDS: ACETAMINOPHEN 325 MG TABLET PO PRN (13:22)
--- NOTE | 2019-01-23 13:33 | PN ---
DATE: SUBJECTIVE: A 73-year-old female in with right-sided chest pain and hyperglycemia. The patient was found to have pulmonary emboli. She has been seen by Cardiology and her cardiac enzymes so far have been negative. Her blood sugars have been going down. So, we have had to reduce her Lantus. Other than that, she had these elevated liver enzymes. Her CT scan of abdomen and pelvis was unremarkable, although this morning, she was complaining of some abdominal discomfort, hard to associate with anything in particular. We will give her some antiemetic ____ may be gastroparesis since her A1c was 8.4. The patient has been started on Xarelto 15 mg b.i.d. OBJECTIVE: VITAL SIGNS: Her blood pressure is 150/75, respiration 16, pulse ____, afebrile. GENERAL: The patient is alert and oriented. LUNGS: Diminished, but clear. She looks like ____ uncomfortable. CARDIOVASCULAR: Regular sinus rhythm. ABDOMEN: Soft and markedly protuberant, but she says that is the way she normally is and will continue to be monitored accordingly on that. EXTREMITIES: No clubbing, cyanosis, or edema. NEUROLOGIC: The patient otherwise is neurologically stable. PLAN: We will try giving her some Reglan in case she has got some gastroparesis from the diabetes. Otherwise, Dr. Grant has been kind enough to review the patient and make further evaluation on her there. Otherwise, we will continue to monitor her. IMPRESSION: Therefore, of pulmonary emboli, chest pain, history of breast cancer, chronic kidney disease stage 4, elevated liver enzymes, and probable gastroparesis. We will get a hepatitis screen and make further assessment on her as noted above. TORY ESTRADA MD DR: MANJEET/barak JOB#: [id number] / [id number]
[2019-01-23 15:39] VITALS: BP 144/73
--- NOTE | 2019-01-23 16:01 | NUR ---
Patient has been very sleepy today, states "people keep calling me and i just want to take a nap." Patient has rested most of the day, complaining of a headache and feeling short of breath when getting up from the bed to the bathroom. PRN tylenol given along with continued breathing treatments. Vitals taken, sats at 88-90% on room air. Patient placed on 2l NC, sats at 94%. Will continue to monitor vitals and sats, lungs sound clear to auscultate.
[2019-01-23 19:30] VITALS: BP 130/64
[2019-01-23] MEDS: HYDROcodone/APAP 7.5/325MG 1 TAB TABLET PO PRN (19:44)
[2019-01-23] MEDS: FENOFIBRATE NANOCRYSTALLIZED 145 MG TABLET PO SCH (20:56)
[2019-01-23] MEDS: ATORVASTATIN CALCIUM 20 MG TABLET PO SCH (20:56)
[2019-01-23] MEDS: MAGNESIUM HYDROXIDE 2,400 MG/30 ML ORAL.SUSP. PO SCH (21:00)
[2019-01-23] MEDS: INSULIN GLARGINE SYRINGE. SQ SCH (21:03)
[2019-01-23 22:24] VITALS: BP 93/55
[2019-01-24] MEDS: HYDROcodone/APAP 7.5/325MG 1 TAB TABLET PO PRN (01:55)
[2019-01-24 05:13] VITALS: BP 107/62
[2019-01-24 06:44] LABS: CREATININE 1.5 mg/dL (0.6-1.0); GFR 34.2; POTASSIUM 4.5 mmol/L (3.5-5.1)
[2019-01-24 06:47] LABS: BASO % 1 % (0-3); EOS # 0.1 x10^3/uL (0.0-0.7); EOS % 2 % (0-3); HEMATOCRIT 35.6 % (36.0-47.0); HEMOGLOBIN 11.6 g/dL (12.0-15.5); LYMPH # 0.6 x10^3/uL (1.0-4.8); LYMPH % 11 % (24-48); MEAN CORPUSCULAR HEMOGLOBIN 30 pg (25-35); MEAN CORPUSCULAR HGB CONC 32 g/dL (31-37); MEAN CORPUSCULAR VOLUME 91 fL (79-100); MONO # 0.6 x10^3/uL (0.0-1.1); MONO % 12 % (0-9); NEUT # 4.1 x10^3uL (1.8-7.7); NEUT % 75 % (31-73); PLATELET COUNT 122 x10^3/uL (140-400); RED BLOOD COUNT 3.91 x10^6/uL (3.50-5.40); RED CELL DISTRIBUTION WIDTH 13.7 % (11.5-14.5); WHITE BLOOD COUNT 5.4 x10^3/uL (4.0-11.0)
--- NOTE | 2019-01-24 07:30 | NUR ---
Patient is attempting to get out of bed unassisted. When attempting to redirect patient to get back into bed, that he is ging to fall, patient started shouting at staff that he needs to make a phone call. Patient is stating over and over give me the phone. This nurse attempted to tell patient that it was 0730 and that it was too early to make phone calls. Patient continued to shout give me the phone and ill sit down. Patient was given the phone and they he started dialing number and was talking on the phone stating he needed to be connected to [facility]. Patient was soiled in BM and was dragging catheter on the ground. Patient was resistive to having staff "clean him up" stating "just let me hold the phone". Addendum: 01/24/19 at 1153 by KANDACE MONROY RN incorrect patient
[2019-01-24] MEDS: INSULIN LISPRO 300 UNITS/3 ML VIAL. SQ SCH ×3 (08:00→17:46)
[2019-01-24] MEDS: IPRATRPIUM/ALBUTEROL 0.5/2.5MG 3 ML NEBU. NEB SCH ×4 (08:00→21:29)
[2019-01-24] MEDS: RIVAROXABAN 15 MG TABLET. PO SCH ×2 (08:08→17:42)
[2019-01-24] MEDS: MAGNESIUM OXIDE 400 MG TABLET PO SCH (08:08)
[2019-01-24] MEDS: LEVOTHYROXINE 100 MCG TABLET PO SCH (08:08)
[2019-01-24] MEDS: POTASSIUM CHLORIDE 20 MEQ TABLET.ER. PO SCH (08:08)
[2019-01-24] MEDS: CITALOPRAM 20 MG TABLET. PO SCH (08:08)
[2019-01-24] MEDS: FUROSEMIDE 20 MG TABLET PO SCH ×2 (08:08→20:55)
[2019-01-24] MEDS: GABAPENTIN 100 MG CAPSULE. PO SCH ×2 (08:09→20:54)
[2019-01-24] MEDS: PANTOPRAZOLE 40 MG TABLET. PO SCH (08:09)
[2019-01-24] MEDS: ASPIRIN ENTERIC COATED 81 MG TABLET.DR. PO SCH (08:09)
[2019-01-24] MEDS: AMIODARONE HCL 200 MG TABLET PO SCH (08:09)
[2019-01-24] MEDS: CARVEDILOL 12.5 MG TABLET PO SCH ×2 (08:09→20:55)
[2019-01-24] MEDS: SACUBITRIL/VALSARTAN 49/51MG TABLET. PO SCH (08:10)
[2019-01-24] MEDS: ACETAMINOPHEN 325 MG TABLET PO PRN (08:13)
--- NOTE | 2019-01-24 08:20 | NUR ---
Patient was offered breakfast this morning and is refusing to eat. Patient also refusing medications will reattempt at a later time. Addendum: 01/24/19 at 1153 by KANDACE MONROY RN incorrect pt
--- NOTE | 2019-01-24 10:24 | PDOC ---
PROVIDER NOTE PROVIDER NOTE PROVIDER NOTE Cardiology Progress Note: S: No new events. O: VSS exam unchanged no edema. Heart tones normal lungs clr Labs reviewed Meds reviewed Impression: 1. P.E 2. Chronic systolic HF 3. ischemic CMP 4. CKD Recs: 1. Entresto decreased to 24/ bid. 2. Continue other meds including coreg, amiodarone, low dose lasix. 3. Continue xarelto Supportive care. Thanks KRISTI BRAVO MD Jan 24, 2019 10:24
[2019-01-24 11:26] VITALS: BP 130/72
[2019-01-24] MEDS: BUTALB/APAP/CAFEIN 50/325/40MG TABLET. PO PRN ×2 (15:34→21:29)
[2019-01-24 16:14] VITALS: BP 120/66
[2019-01-24 19:31] VITALS: BP 149/84
[2019-01-24] MEDS: INSULIN GLARGINE SYRINGE. SQ SCH (20:54)
[2019-01-24] MEDS: FENOFIBRATE NANOCRYSTALLIZED 145 MG TABLET PO SCH (20:55)
[2019-01-24] MEDS: ATORVASTATIN CALCIUM 20 MG TABLET PO SCH (20:55)
[2019-01-24] MEDS: MAGNESIUM HYDROXIDE 2,400 MG/30 ML ORAL.SUSP. PO SCH (21:00)
[2019-01-24] MEDS: SACUBITRIL/VALSARTAN 24/26MG TABLET. PO SCH (21:00)
[2019-01-24] MEDS ORDERED: TOPIRAMATE 100 MG TABLET. PO SCH (21:00)
[2019-01-24 22:19] VITALS: BP 130/73
--- NOTE | 2019-01-25 01:24 | PN ---
DATE: SUBJECTIVE: A 73-year-old female patient in with pulmonary emboli, chest pain and the like. The patient is still having some abdominal discomfort. Her CAT scan was basically unremarkable. She had some mild edema in her lungs and possible ____ edema. She did have a 4 mm solid nodule in the right lower lobe and needs a followup in 12 months for that. She is still very sick, not feeling very well. OBJECTIVE: VITAL SIGNS: Blood pressure 130/72, respiratory rate 20, pulse 79, afebrile. GENERAL: The patient is alert and oriented. LUNGS: Diminished throughout. CARDIOVASCULAR: Regular sinus rhythm. Good ejection fraction. ABDOMEN: Markedly distended, protuberant, but no real tenderness noted. EXTREMITIES: No clubbing or cyanosis, no edema. NEUROLOGIC: The patient is alert and oriented x 3. LABORATORY DATA: Hemoglobin 11.6 and 35, white count stable. The patient's BUN and creatinine showed an improvement, 26 and 2 down to 16 and 1.5. Blood sugars under better control. Sodium, potassium, all within normal limits. IMPRESSION: Pulmonary emboli, chest pain, history of breast cancer, abdominal pain, chronic kidney disease stage 4, elevated liver enzymes, possible ____ edema, gastroparesis. Dr. Grant has ____ the patient and made further timely suggestions. He decreased her Entresto ____ continued Xarelto and Entresto decreased, chronic pulmonary embolism. PLAN: The patient continued to be monitored and we make further evaluation on her as indicated. TORY ESTRADA MD DR: MANJEET/barak JOB#: [id number] / [id number]
[2019-01-25 05:11] VITALS: BP 144/74
[2019-01-25] MEDS: IPRATRPIUM/ALBUTEROL 0.5/2.5MG 3 ML NEBU. NEB SCH (05:29)
[2019-01-25] MEDS: HYDROcodone/APAP 7.5/325MG 1 TAB TABLET PO PRN (06:00)
[2019-01-25] MEDS: POTASSIUM CHLORIDE 20 MEQ TABLET.ER. PO SCH (08:00)
[2019-01-25] MEDS: MAGNESIUM OXIDE 400 MG TABLET PO SCH (08:39)
[2019-01-25] MEDS: LEVOTHYROXINE 100 MCG TABLET PO SCH (08:39)
[2019-01-25] MEDS: SACUBITRIL/VALSARTAN 24/26MG TABLET. PO SCH (08:39)
[2019-01-25] MEDS: CARVEDILOL 12.5 MG TABLET PO SCH (08:40)
[2019-01-25] MEDS: AMIODARONE HCL 200 MG TABLET PO SCH (08:40)
[2019-01-25] MEDS: ASPIRIN ENTERIC COATED 81 MG TABLET.DR. PO SCH (08:40)
[2019-01-25] MEDS: RIVAROXABAN 15 MG TABLET. PO SCH (08:40)
[2019-01-25] MEDS: CITALOPRAM 20 MG TABLET. PO SCH (08:40)
[2019-01-25] MEDS: GABAPENTIN 100 MG CAPSULE. PO SCH (08:40)
[2019-01-25] MEDS: PANTOPRAZOLE 40 MG TABLET. PO SCH (08:40)
[2019-01-25] MEDS: FUROSEMIDE 20 MG TABLET PO SCH (08:41)
[2019-01-25] MEDS: INSULIN LISPRO 300 UNITS/3 ML VIAL. SQ SCH ×2 (08:45→12:25)
[2019-01-25 09:49] VITALS: BP 107/56
--- NOTE | 2019-01-25 10:04 | RAD ---
CT HEAD WITHOUT CONTRAST 01/25/2019 11:00 AM Indication: Headache Comparison: None Procedure: Multidetector CT imaging of the head was performed without the administration of contrast. Findings: There is no evidence of acute intracranial hemorrhage. There is no evidence of acute territorial infarction. Please note that CT is limited for evaluation of acute ischemia. No mass effect or midline shift is identified . The ventricles and basilar cisterns have an appropriate appearance. No abnormal extra-axial fluid collections are seen. No acute osseous changes are identified. Impression: No evidence of acute intracranial abnormality CT DOSING PQRS STATEMENT: One or more of the following individualized dose reduction techniques were utilized for this examination: 1. Automated exposure control 2. Adjustment of the mA and/or kV according to patient size 3. Use of iterative reconstruction technique Electronically signed by: Joce Hansen MD (01/25/2019 10:01 AM) [id number]
--- NOTE | 2019-01-25 11:19 | DS ---
DATE OF DISCHARGE: HOSPITAL COURSE: The patient is a 73-year-old female patient who presented to the Emergency Room with a multitude of complaints including right-sided chest pain. Her blood sugar was poorly controlled. Her pain is aggravated by taking a deep breath and cough. The patient has a history of hypertension, diabetes, hyperlipidemia, congestive heart failure, COPD and history of breast cancer and she was initially extensively investigated and her lab work showed a mild leukocytosis. Her chemistry showed that she has acute on chronic kidney injury, hypomagnesemia, deranged liver enzymes and her D-dimer was high, so she was extensively investigated. She has had venous Doppler ultrasound of both lower extremities, which showed no deep vein thrombosis seen throughout both either lower extremity. Given her impaired kidney function, she underwent pulmonary ventilation perfusion imaging, which showed that she has perfusion defects to the left upper lobe and lingula consistent with high probability of pulmonary emboli and therefore, the patient was started initially on Lovenox and eventually switched to Xarelto 15 mg twice a day. She has been also complaining of severe headache and it showed that there is no evidence of acute intracranial hemorrhage. There is no evidence of acute territorial infarction. The ventricles and basilar cisterns have an appropriate appearance. No abnormal extraaxial fluid collection is seen. No acute osseous changes are identified. The patient stated that her headache responds to her Lortab and expressed a desire to be discharged home. PHYSICAL EXAMINATION: GENERAL: When I saw her this morning, she was sitting on the edge of the bed comfortably in no apparent distress, slightly pale, but no jaundice, cyanosis or thyromegaly. No jugular venous distention. No limb edema. VITAL SIGNS: Her heart rate was 63, blood pressure was 107/56, temperature was 97.5, respiratory rate was 20, and oxygen saturation was 91% on room air. HEAD, EYES, EARS, NOSE AND THROAT: Showed normocephalic, atraumatic. NECK: Supple. HEART: Showed normal first and second heart sounds. No gallop or murmur. CHEST: Clear to auscultation. No crepitation or rhonchi. ABDOMEN: Distended, soft, nontender. NEUROLOGIC: She is awake, alert, responding appropriately. All her cranial nerves intact. She moves extremities without difficulty. She actually moves with a cane according to her. Her intake over the last 24 hours was 1850, no output was recorded. LABORATORY DATA: Her lab work this morning showed that her white cell count was 5400, hemoglobin 11.6, hematocrit 35, MCV 91, and platelet count of 122,000. Her chemistry showed that her serum sodium 137, potassium 4.5, chloride 102, bicarbonate 28, anion gap of 7, BUN 16, creatinine 1.5, estimated GFR was 34 mL per minute. Her glucose 122, calcium was 8. Her prothrombin time, INR and aPTT were normal. D-dimer was high at 0.75. Urinalysis essentially unremarkable. DISCHARGE MEDICATIONS: The patient will be discharged home to continue on Entresto one tablet twice a day, topiramate 100 mg at bedtime, Fioricet 1 tablet every 6 hours, Humalog insulin 50 units before meals, magnesium oxide 400 mg daily, albuterol sulfate/ipratropium bromide for DuoNeb in 3 mL 4 times a day. She was discharged on rivaroxaban 15 mg twice a day, Lantus 50 units at bedtime, atorvastatin calcium 40 mg at bedtime, fenofibrate 145 mg at bedtime, milk of magnesia 30 mL p.o. daily p.r.n. for constipation, hydrocodone/APAP 7.5/325 one tablet twice a day, potassium chloride 20 mEq once a day, Protonix 40 mg once a day, levothyroxine sodium 100 mcg once a day, gabapentin 100 mg twice a day, furosemide 20 mg twice a day, citalopram hydrobromide 20 mg once a day, carvedilol 12.5 mg twice a day, aspirin 81 mg once a day, amiodarone 200 mg once a day, alprazolam 0.25 mg twice a day, Tylenol 650 mg once a day. FINAL DISCHARGE DIAGNOSES: 1. Chest pain due to pulmonary embolism. 2. Chronic systolic congestive heart failure. 3. Ischemic cardiomyopathy. 4. Chronic kidney disease, chronic obstructive pulmonary disease, type 2 diabetes, hyperlipidemia and gastroesophageal reflux disease. She has a history of breast cancer diagnosed about 13 years ago, in remission, follows with Dr. Natasha Lamas. NABILA HARDING MD DR: COLEMAN/barak JOB#: [id number] / [id number]
--- NOTE | 2019-01-25 13:24 | NUR ---
Discharge Note: LAURE SIERRA [address] Discharge instructions and discharge home medications reviewed with Patient and a copy given. All questions have been answered and understanding verbalized. The following instructions and handouts were given: Take medications as prescribed, follow up with Primary Care Provider in 7-10 days or sooner if needed. Discontinued lines and drains: peripheral IV discontinued, pressure dressing applied, catheter tip intact. Patient discharged to home
== END 2019-01-25 13:27 | disposition home or self-care (01) | DRG 175 ==
LOC: ER 22:20 → 1 SOUTH 23:45
PROVIDERS: ADMIT Internal Medicine; ATTEND Internal Medicine
DX: I26.99 Other pulmonary embolism without acute cor pulmonale (principal); N17.0 Acute kidney failure with tubular necrosis; I50.42 Chronic combined systolic (congestive) and diastolic (congestive) heart failure; N18.4 Chronic kidney disease, stage 4 (severe); I13.0 Hypertensive heart and chronic kidney disease with heart failure and stage 1 through stage 4 chronic kidney disease, or unspecified chronic kidney disease; F41.9 Anxiety disorder, unspecified; F32.9 Major depressive disorder, single episode, unspecified; K21.9 Gastro-esophageal reflux disease without esophagitis; E78.00 Pure hypercholesterolemia, unspecified; J44.9 Chronic obstructive pulmonary disease, unspecified; I25.10 Atherosclerotic heart disease of native coronary artery without angina pectoris; E11.22 Type 2 diabetes mellitus with diabetic chronic kidney disease; E83.42 Hypomagnesemia; D72.829 Elevated white blood cell count, unspecified; E87.6 Hypokalemia; I25.5 Ischemic cardiomyopathy; E11.51 Type 2 diabetes mellitus with diabetic peripheral angiopathy without gangrene; E78.5 Hyperlipidemia, unspecified; E03.9 Hypothyroidism, unspecified; I27.82 Chronic pulmonary embolism; E11.65 Type 2 diabetes mellitus with hyperglycemia; I25.2 Old myocardial infarction; Z90.710 Acquired absence of both cervix and uterus; Z95.0 Presence of cardiac pacemaker; Z91.19 Patient's noncompliance with other medical treatment and regimen; Z91.14 Patient's other noncompliance with medication regimen; Z95.1 Presence of aortocoronary bypass graft; Z95.5 Presence of coronary angioplasty implant and graft; Z88.8 Allergy status to other drugs, medicaments and biological substances; Z82.49 Family history of ischemic heart disease and other diseases of the circulatory system; Z83.3 Family history of diabetes mellitus; Z90.12 Acquired absence of left breast and nipple; Z85.3 Personal history of malignant neoplasm of breast; Z79.02 Long term (current) use of antithrombotics/antiplatelets; Z79.01 Long term (current) use of anticoagulants
CPT/HCPCS: 36415; 70450; 71046; 74176; 78582; 80048; 80061; 80076; 80307; 81001; 82550; 82803; 82947; 83036; 83690; 83735; 83880; 84443; 84484; 85025; 85379; 85610; 85730; 86705; 86709; 86803; 87340; 93005; 93970; 94640; 96360; 96372; 96374; A9540; A9558; J1650; J1815; J2270; J2765; J3475; J7120; J7620; 99285-25; J7030

== ENCOUNTER 2019-01-26 14:23 | Inpatient (IN) | payer MEDICARE, BC ==
[~2019-01-26] VITALS: Ht 157.5 cm; Wt 93.9 kg
[~2019-01-26 14:23] MED LIST changes: +AMIO200T4 PO; +CITA20TA6 PO; +CLOP75TA PO; -FENO145T3 PO; +FENO145T30 PO; +HYDR-2763 PO; +MAGN400T44 PO; +PHEN37.5 PO; +SACU1TAB4 PO
[2019-01-26] MEDS ORDERED: HYDROcodone/APAP 7.5/325MG 1 TAB TABLET PO PRN (15:00)
[2019-01-26 15:30] LABS: HEMOGLOBIN 11.8 g/dL (12.0-15.5); RED BLOOD COUNT 4.06 x10^6/uL (3.50-5.40); RED CELL DISTRIBUTION WIDTH 14.1 % (11.5-14.5); WHITE BLOOD COUNT 5.8 x10^3/uL (4.0-11.0)
[2019-01-26 15:40] VITALS: BP 126/62
--- NOTE | 2019-01-26 15:54 | HP ---
ADMIT DATE: 01/26/2019 HISTORY OF PRESENT ILLNESS: The patient is a 73-year-old female patient who was discharged yesterday on Xarelto after she was diagnosed with acute pulmonary embolism. She called today, states that she cannot afford the richardson as it costs her about $108 with her insurance as a copay, so we discussed with her multiple options including a discount card from [employer] or to come in, admitted and treated with Lovenox and Coumadin. We will continue Lovenox until the INR is 2 or more than 2 and she opted for the latter and therefore she was admitted. We will start her on therapeutic dose of Lovenox. I did speak with the pharmacy and transpired that her GFR is more than about 37 mL per minute and that her dose will be 95 mg subcutaneously twice a day. We will obviously monitor her kidney function on a daily basis and adjust Lovenox accordingly. We will start her on Coumadin and monitor. We will check her PT/INR, is at baseline, and then followed daily PT/INR. We will discontinue Lovenox once the INR is 2 or more than 2 and then she can be discharged home on Coumadin. PAST MEDICAL HISTORY: Significant for: 1. Ischemic cardiomyopathy, status post PCI to left anterior descending with a cardiac catheterization in 2019 demonstrating patent stents and small vessel disease. 2. Status post [employer] dual chamber ICD for ejection fraction of 25%. 3. Peripheral arterial disease, status post peripheral VVI to the left superficial femoral artery with 1-vessel runoff below the knee bilaterally. The last angiogram was in 2018. 4. She has chronic kidney disease with baseline creatinine 1.6. 5. Hypertension. 6. Type 2 diabetes. 7. Dyslipidemia. 8. Hypothyroidism. PAST SURGICAL HISTORY: Significant for cardiac catheterization with stent deployment to the left anterior descending and dual chamber ICD placement. She is also status post VVI to the left superficial femoral artery. FAMILY HISTORY: Noncontributory. SOCIAL HISTORY: She lives at home. Does not smoke, drink alcohol or use recreational drugs. ALLERGIES: She is allergic to GLARGINE INSULIN. MEDICATIONS: Actually, she is currently on following medications: She is on acetaminophen 650 mg every 4 hours, alprazolam 0.25 mg twice a day, amiodarone 200 mg once a day, aspirin 81 mg once a day, atorvastatin calcium 40 mg at bedtime, carvedilol 12.5 mg twice a day, citalopram hydrobromide 20 mg daily, Plavix 75 mg once a day, fenofibrate 145 mg at bedtime, furosemide 20 mg twice a day, gabapentin 100 mg twice a day, hydrocodone/APAP 7.5/325 one tablet twice a day. She is on Lantus insulin 50 units subcutaneous at bedtime and Humalog insulin 25 units before meals, levothyroxine sodium for Synthroid 100 mcg p.o. daily, magnesium oxide 400 mg daily, Protonix 40 mg once a day, phentermine 37.5 mg daily, potassium chloride 20 mEq once a day and Entresto 97/103 mg tablet 1 tablet daily. REVIEW OF SYSTEMS: As per history of present illness. PHYSICAL EXAMINATION: GENERAL: On arrival to the hospital, she was sitting comfortably in bed, in no apparent respiratory distress, slightly pale, but no jaundice, cyanosis or thyromegaly. No jugular venous distention. No lower limb edema. VITAL SIGNS: Her heart rate was 64, blood pressure was 107/56, temperature was 97.5, respiratory rate was 20, and oxygen saturation was 91%. HEAD, EYES, EARS, NOSE AND THROAT: Showed normocephalic, atraumatic. CHEST: Clear to auscultation. No crepitation or rhonchi. ABDOMEN: Distended, soft, nontender. NEUROLOGIC: She is awake, alert, responding appropriately. All cranial nerves intact. EXTREMITIES: She moves extremities without difficulty. She ambulates with a cane. ASSESSMENT AND PLAN: Acute pulmonary embolism based on finding a ventilation/perfusion scan done yesterday. The patient was started yesterday on Xarelto; however, she cannot afford the richardson and therefore she came back. I gave her multiple other options. She opted for treatment with Lovenox and Coumadin. We will start her on Lovenox 95 mg subcutaneously twice a day Coumadin 10 mg once a day. We will monitor her PT/INR on a daily basis and discontinue Lovenox once the INR is equal to 2 or more than 2. We will also continue all other medications except Xarelto. Continue to monitor her blood sugar and adjust insulin as needed. Continue with physical and occupational therapy. NABILA HARDING MD DR: COLEMAN/barak JOB#: [id number] / [id number]
[2019-01-26 16:19] LABS: ALBUMIN 2.7 g/dL (3.4-5.0); ALBUMIN/GLOBULIN RATIO 0.7 (1.0-1.7); CALCIUM 8.5 mg/dL (8.5-10.1); CREATININE 1.5 mg/dL (0.6-1.0); GFR 34.2; POTASSIUM 4.3 mmol/L (3.5-5.1); TOTAL PROTEIN 6.7 g/dL (6.4-8.2)
[2019-01-26] MEDS ORDERED: INSULIN LISPRO 300 UNITS/3 ML VIAL. SQ SCH (17:00)
[2019-01-26] MEDS: ENOXAPARIN ** NOTE DOSE ** SYRINGE SQ SCH (17:10)
[2019-01-26] MEDS: FUROSEMIDE 20 MG TABLET PO SCH (17:10)
[2019-01-26] MEDS: INSULIN LISPRO 300 UNITS/3 ML VIAL. SQ SCH (17:15)
[2019-01-26 19:12] VITALS: BP 117/70
[2019-01-26] MEDS: CARVEDILOL 12.5 MG TABLET PO SCH (21:18)
[2019-01-26] MEDS: ATORVASTATIN CALCIUM 20 MG TABLET PO SCH (21:18)
[2019-01-26] MEDS: GABAPENTIN 100 MG CAPSULE. PO SCH (21:18)
[2019-01-26] MEDS: FENOFIBRATE NANOCRYSTALLIZED 145 MG TABLET PO SCH (21:19)
[2019-01-26] MEDS: INSULIN GLARGINE SYRINGE. SQ SCH (21:24)
[2019-01-26 22:24] VITALS: BP 116/66
[2019-01-26] MEDS: ALPRAZolam 0.25 MG TABLET PO PRN (23:08)
[2019-01-27] MEDS: LEVOTHYROXINE 100 MCG TABLET PO SCH (05:53)
[2019-01-27] MEDS: ENOXAPARIN ** NOTE DOSE ** SYRINGE SQ SCH ×2 (05:53→17:45)
[2019-01-27 06:02] VITALS: BP 120/74
[2019-01-27] MEDS: SACUBITRIL/VALSARTAN 49/51MG TABLET. PO SCH (08:07)
[2019-01-27] MEDS: CLOPIDOGREL BISULFATE 75 MG TABLET PO SCH (08:08)
[2019-01-27] MEDS: AMIODARONE HCL 200 MG TABLET PO SCH (08:09)
[2019-01-27] MEDS: CARVEDILOL 12.5 MG TABLET PO SCH ×2 (08:09→17:21)
[2019-01-27] MEDS: POTASSIUM CHLORIDE 20 MEQ TABLET.ER. PO SCH (08:09)
[2019-01-27] MEDS: PANTOPRAZOLE 40 MG TABLET. PO SCH (08:10)
[2019-01-27] MEDS: GABAPENTIN 100 MG CAPSULE. PO SCH ×2 (08:10→20:48)
[2019-01-27] MEDS: CITALOPRAM 20 MG TABLET. PO SCH (08:10)
[2019-01-27] MEDS: ASPIRIN ENTERIC COATED 81 MG TABLET.DR. PO SCH (08:10)
[2019-01-27] MEDS: MAGNESIUM OXIDE 400 MG TABLET PO SCH (08:10)
[2019-01-27] MEDS: FUROSEMIDE 20 MG TABLET PO SCH ×2 (08:10→16:35)
[2019-01-27] MEDS: INSULIN LISPRO 300 UNITS/3 ML VIAL. SQ SCH ×3 (08:17→17:29)
[2019-01-27] MEDS ORDERED: SACUBITRIL/VALSARTAN 49/51MG TABLET. PO SCH (09:00)
[2019-01-27] MEDS ORDERED: NON FORMULARY ITEM (Phentermine Hcl 37.5 MG) PO SCH (09:00)
[2019-01-27 10:43] VITALS: BP 118/68
[2019-01-27] MEDS: ALPRAZolam 0.25 MG TABLET PO PRN (12:33)
[2019-01-27 14:35] VITALS: BP 118/80
[2019-01-27] MEDS ORDERED: WARFARIN 10 MG TABLET. PO SCH (16:00)
[2019-01-27 19:03] VITALS: BP 128/69
[2019-01-27] MEDS: ATORVASTATIN CALCIUM 20 MG TABLET PO SCH (20:48)
[2019-01-27] MEDS: FENOFIBRATE NANOCRYSTALLIZED 145 MG TABLET PO SCH (20:48)
[2019-01-27] MEDS: INSULIN GLARGINE SYRINGE. SQ SCH (20:51)
[2019-01-27 22:19] VITALS: BP 113/72
--- NOTE | 2019-01-27 22:41 | PN ---
DATE: 01/27/2019 SUBJECTIVE: The patient is resting slightly propped up in bed, in no apparent respiratory distress. She denied any chest pain, shortness of breath, cough or phlegm. Nursing staff did not voice any concerns, so she had an uneventful night. PHYSICAL EXAMINATION: GENERAL: When I examined her she looked pale, but no jaundice, cyanosis or thyromegaly. No jugular venous distention or limb edema. VITAL SIGNS: Her heart rate was 67, blood pressure was 118/80, temperature was 98.5, respiratory rate was 20 and oxygen saturation was 95%. HEAD, EYES, EARS, NOSE AND THROAT: Normocephalic, atraumatic. NECK: Supple. HEART: Showed normal first and second heart sounds. CHEST: Clear to auscultation. No crepitation or rhonchi. ABDOMEN: Distended, soft, nontender. NEUROLOGIC: She is sleepy, but arousable. All cranial nerves intact. EXTREMITIES: She moves extremities without difficulty. Her intake was 718, no output was recorded. LABORATORY DATA: Her lab work as of yesterday showed a white cell count of 5800, hemoglobin 11.8, hematocrit 37, MCV 91 and platelet count of 162,000. Her blood sugar seems to be well controlled. Her prothrombin time this morning was 9.9, INR of 1. ASSESSMENT: 1. Acute pulmonary embolism, for which she is now on Lovenox and overlapping with Coumadin. Other medical problems include ischemic cardiomyopathy, status post percutaneous coronary intervention to left anterior descending. 2. She is status post [employer] dual chamber ICD for ejection fraction 25%. 3. Peripheral arterial disease, status post peripheral vascular intervention to the left superficial femoral artery. 4. She has chronic kidney disease with baseline creatinine 1.6. 5. Hypertension. 6. Type 2 diabetes. 7. Hyperlipidemia. 8. Hypothyroidism. PLAN: To continue with all her medications. Continue with Lovenox and Coumadin. We will check her PT/INR on a daily basis and discontinue Lovenox once the INR is 2 or more than 2, and we will discharge her home to follow with her primary care physician. NABILA HARDING MD DR: COLEMAN/barak JOB#: [id number] / [id number]
[2019-01-28 06:06] VITALS: BP 122/71
[2019-01-28 06:07] LABS: CALCIUM 8.4 mg/dL (8.5-10.1); CREATININE 1.5 mg/dL (0.6-1.0); GFR 34.2; POTASSIUM 4.4 mmol/L (3.5-5.1)
[2019-01-28] MEDS: LEVOTHYROXINE 100 MCG TABLET PO SCH (06:21)
[2019-01-28] MEDS: ENOXAPARIN ** NOTE DOSE ** SYRINGE SQ SCH ×2 (06:22→17:17)
[2019-01-28] MEDS: POTASSIUM CHLORIDE 20 MEQ TABLET.ER. PO SCH (08:04)
[2019-01-28] MEDS: AMIODARONE HCL 200 MG TABLET PO SCH (08:04)
[2019-01-28] MEDS: PANTOPRAZOLE 40 MG TABLET. PO SCH (08:05)
[2019-01-28] MEDS: CITALOPRAM 20 MG TABLET. PO SCH (08:05)
[2019-01-28] MEDS: FUROSEMIDE 20 MG TABLET PO SCH ×2 (08:05→17:16)
[2019-01-28] MEDS: GABAPENTIN 100 MG CAPSULE. PO SCH ×2 (08:05→21:00)
[2019-01-28] MEDS: ASPIRIN ENTERIC COATED 81 MG TABLET.DR. PO SCH (08:05)
[2019-01-28] MEDS: CLOPIDOGREL BISULFATE 75 MG TABLET PO SCH (08:05)
[2019-01-28] MEDS: MAGNESIUM OXIDE 400 MG TABLET PO SCH (08:06)
[2019-01-28] MEDS: SACUBITRIL/VALSARTAN 49/51MG TABLET. PO SCH (08:06)
[2019-01-28] MEDS: CARVEDILOL 12.5 MG TABLET PO SCH ×2 (08:07→17:17)
[2019-01-28] MEDS: INSULIN LISPRO 300 UNITS/3 ML VIAL. SQ SCH ×3 (08:13→17:20)
[2019-01-28 10:28] VITALS: BP 101/63
[2019-01-28] MEDS ORDERED: MAGNESIUM HYDROXIDE 2,400 MG/30 ML ORAL.SUSP. PO PRN (11:45)
[2019-01-28 14:04] VITALS: BP 108/68
[2019-01-28] MEDS ORDERED: WARFARIN 7.5 MG TABLET. PO SCH (16:00)
[2019-01-28 19:26] VITALS: BP 125/71
[2019-01-28] MEDS: ATORVASTATIN CALCIUM 20 MG TABLET PO SCH (21:00)
[2019-01-28] MEDS: FENOFIBRATE NANOCRYSTALLIZED 145 MG TABLET PO SCH (21:00)
[2019-01-28] MEDS: INSULIN GLARGINE SYRINGE. SQ SCH (21:06)
[2019-01-28 22:14] VITALS: BP 123/76
[2019-01-29] MEDS: ACETAMINOPHEN 325 MG TABLET PO PRN (01:47)
--- NOTE | 2019-01-29 02:58 | PN ---
DATE: 01/28/2019 SUBJECTIVE: The patient is resting at the edge of the bed comfortably in no apparent distress. On questioning her, she denied any complaints. Nursing staff did not voice any concerns that she had an uneventful night. PHYSICAL EXAMINATION: GENERAL: When I examined her, she looked pale, not jaundiced, cyanosed or thyromegaly. No jugular venous distension. No limb edema. VITAL SIGNS: Her heart rate was 67, blood pressure was 106/68, temperature was 97.6, respiratory rate was 20, and oxygen saturation was 96%. HEAD, EYES, EARS, NOSE AND THROAT: Showed normocephalic, atraumatic. NECK: Supple. HEART: Showed normal first and second heart sounds with no gallop or murmur. CHEST: Clear to auscultation. No crepitation or rhonchi. ABDOMEN: Distended, soft, nontender. No guarding or rigidity. No organomegaly. All hernial orifice intact. Bowel sounds normal. NEUROLOGIC: She was grossly intact. She ambulates with a cane. LABORATORY DATA: Her prothrombin time and INR is still subtherapeutic at 9.9 and 1. His white cell count, platelet, hemoglobin and hematocrit are normal. Chemistry is also normal. Her serum sodium 139, potassium 4.4, chloride 103, bicarbonate 25, anion gap of 11, BUN 23, creatinine 1.5, estimated GFR was 34 mL per minute. Her glucose 173. Calcium was ____. ASSESSMENT: 1. Acute pulmonary embolism, for which she is on Lovenox and Coumadin. Her INR is still subtherapeutic. 2. Ischemic cardiomyopathy, status post percutaneous coronary intervention to left anterior descending. 3. She is status post [employer] dual chamber ICD for ejection fraction 25%. 4. Peripheral arterial disease. 5. Chronic kidney disease with a baseline creatinine of 1.5. 6. Hypertension. 7. Type 2 diabetes mellitus. 8. Hyperlipidemia. 9. Hypothyroidism. PLAN: Continue with oral medication. Continue with Lovenox and Coumadin. We will monitor her PT/INR on a daily basis and discontinue Lovenox once the INR is 2 or more than 2. I will increase her Coumadin to 50 mg today and check her PT/INR ____. NABILA HARDING MD DR: COLEMAN/barak JOB#: [id number] / [id number]
[2019-01-29 05:44] VITALS: BP 116/73
[2019-01-29] MEDS: LEVOTHYROXINE 100 MCG TABLET PO SCH (06:33)
[2019-01-29] MEDS: ENOXAPARIN ** NOTE DOSE ** SYRINGE SQ SCH ×2 (06:33→16:57)
[2019-01-29] MEDS: INSULIN LISPRO 300 UNITS/3 ML VIAL. SQ SCH ×3 (07:40→16:58)
[2019-01-29] MEDS: GABAPENTIN 100 MG CAPSULE. PO SCH ×2 (07:41→20:42)
[2019-01-29] MEDS: CARVEDILOL 12.5 MG TABLET PO SCH ×2 (07:41→15:34)
[2019-01-29] MEDS: CLOPIDOGREL BISULFATE 75 MG TABLET PO SCH (07:41)
[2019-01-29] MEDS: MAGNESIUM OXIDE 400 MG TABLET PO SCH (07:41)
[2019-01-29] MEDS: SACUBITRIL/VALSARTAN 49/51MG TABLET. PO SCH (07:42)
[2019-01-29] MEDS: ASPIRIN ENTERIC COATED 81 MG TABLET.DR. PO SCH (07:42)
[2019-01-29] MEDS: PANTOPRAZOLE 40 MG TABLET. PO SCH (07:42)
[2019-01-29] MEDS: FUROSEMIDE 20 MG TABLET PO SCH ×2 (07:42→15:34)
[2019-01-29] MEDS: AMIODARONE HCL 200 MG TABLET PO SCH (07:43)
[2019-01-29] MEDS: CITALOPRAM 20 MG TABLET. PO SCH (07:43)
[2019-01-29] MEDS: POTASSIUM CHLORIDE 20 MEQ TABLET.ER. PO SCH (07:47)
[2019-01-29 11:41] VITALS: BP 114/71
[2019-01-29 15:00] VITALS: BP 117/70
[2019-01-29] MEDS ORDERED: WARFARIN 10 MG TABLET. PO SCH (16:00)
[2019-01-29 19:16] VITALS: BP 113/60
[2019-01-29] MEDS: ATORVASTATIN CALCIUM 20 MG TABLET PO SCH (20:42)
[2019-01-29] MEDS: FENOFIBRATE NANOCRYSTALLIZED 145 MG TABLET PO SCH (20:42)
[2019-01-29] MEDS: INSULIN GLARGINE SYRINGE. SQ SCH (20:45)
[2019-01-29] MEDS: ALPRAZolam 0.25 MG TABLET PO PRN (20:50)
--- NOTE | 2019-01-29 22:41 | PN ---
DATE: SUBJECTIVE: The patient is resting, slightly propped up in bed, in no apparent respiratory distress. She is awake, alert. On questioning her, she denies any complaint. The nursing staff did not voice any concerns that she had an uneventful night. PHYSICAL EXAMINATION: GENERAL: When I examined her, she looked pale, no jaundice, cyanosis, or thyromegaly. No jugular venous distension. No lower limb edema. VITAL SIGNS: Her heart rate was 62, blood pressure was 114/71, temperature was 97.5, respiratory rate was 18 and oxygen saturation was 96% on 2 liters of oxygen. The rest of clinical exam is stable. Her intake was 1550, no output was recorded. LABORATORY DATA: Showed her prothrombin time to be 14.6, INR 1.4. Her blood count showed hemoglobin of 12, hematocrit 37 with normal white cell count and platelets. Her chemistry as of yesterday showed a BUN of 23, creatinine 1.5. Her blood sugar seemed to be reasonably controlled. ASSESSMENT: 1. Acute pulmonary embolism, for which she is on Lovenox and Coumadin. Her INR was still subtherapeutic. 2. Ischemic cardiomyopathy, status post percutaneous coronary intervention to left anterior descending artery. 3. She is status post [employer] dual chamber implantable cardioverter defibrillator for ejection fraction 25%. 4. Peripheral arterial disease. 5. Chronic kidney disease with baseline creatinine 1.5. 6. Hypertension. 7. Type 2 diabetes mellitus. 8. Hyperlipidemia. 9. Hypothyroidism. PLAN: To continue with all her medications. Continue with Lovenox and Coumadin. We will monitor her PT/INR on a daily basis and discontinue Lovenox once the INR is 2 or more than 2. NABILA HARDING MD DR: COLEMAN/barak JOB#: [id number] / [id number]
[2019-01-29 23:25] VITALS: BP 120/72
[2019-01-30 05:39] VITALS: BP 129/74
[2019-01-30] MEDS: LEVOTHYROXINE 100 MCG TABLET PO SCH (06:12)
[2019-01-30] MEDS: ENOXAPARIN ** NOTE DOSE ** SYRINGE SQ SCH (06:13)
[2019-01-30 07:07] LABS: CALCIUM 8.5 mg/dL (8.5-10.1); CREATININE 1.5 mg/dL (0.6-1.0); GFR 34.2; POTASSIUM 4.3 mmol/L (3.5-5.1)
[2019-01-30] MEDS: INSULIN LISPRO 300 UNITS/3 ML VIAL. SQ SCH ×3 (08:00→17:08)
[2019-01-30] MEDS: SACUBITRIL/VALSARTAN 49/51MG TABLET. PO SCH (08:28)
[2019-01-30] MEDS: GABAPENTIN 100 MG CAPSULE. PO SCH ×2 (08:29→19:52)
[2019-01-30] MEDS: CLOPIDOGREL BISULFATE 75 MG TABLET PO SCH (08:29)
[2019-01-30] MEDS: MAGNESIUM OXIDE 400 MG TABLET PO SCH (08:29)
[2019-01-30] MEDS: AMIODARONE HCL 200 MG TABLET PO SCH (08:29)
[2019-01-30] MEDS: FUROSEMIDE 20 MG TABLET PO SCH ×2 (08:30→17:05)
[2019-01-30] MEDS: ASPIRIN ENTERIC COATED 81 MG TABLET.DR. PO SCH (08:30)
[2019-01-30] MEDS: CITALOPRAM 20 MG TABLET. PO SCH (08:30)
[2019-01-30] MEDS: POTASSIUM CHLORIDE 20 MEQ TABLET.ER. PO SCH (08:30)
[2019-01-30] MEDS: PANTOPRAZOLE 40 MG TABLET. PO SCH (08:31)
[2019-01-30] MEDS: CARVEDILOL 12.5 MG TABLET PO SCH ×2 (08:31→17:05)
[2019-01-30 10:33] VITALS: BP 106/58
[2019-01-30 16:11] VITALS: BP 131/71
[2019-01-30 19:45] VITALS: BP 148/76
[2019-01-30] MEDS: ATORVASTATIN CALCIUM 20 MG TABLET PO SCH (19:51)
[2019-01-30] MEDS: FENOFIBRATE NANOCRYSTALLIZED 145 MG TABLET PO SCH (19:52)
[2019-01-30] MEDS: INSULIN GLARGINE SYRINGE. SQ SCH (19:56)
--- NOTE | 2019-01-30 21:46 | PN ---
DATE: 01/30/2019 SUBJECTIVE: The patient is sitting on the edge of the bed comfortably, in no apparent distress. On questioning her, denied any complaint. Her prothrombin time has dramatically risen from 1.4-3.3, therefore we discontinued her Lovenox. We will hold her Coumadin today. Repeat her PT/INR tomorrow and if it is less than 2.5, she can be discharged home to follow with her primary care physician. PHYSICAL EXAMINATION: GENERAL: When I examined her this afternoon, she looked well and was in no apparent respiratory distress, slightly pale, but no jaundice, cyanosis, or thyromegaly. No jugular venous distension. No limb edema. VITAL SIGNS: Her heart rate was 74, blood pressure was 106/58, temperature was 97.7, respiratory rate 20, and oxygen saturation was 94%. The rest of examination was stable. LABORATORY DATA: Her chemistry showed a serum sodium 136, potassium 4.3, chloride 102, bicarbonate 28, anion gap of 6, BUN 22, creatinine 1.5. Estimated GFR was 34 mL per minute. Her glucose was 87, calcium was 8.5. Her prothrombin time was 34.2, INR of 3.3. ASSESSMENT: 1. Acute pulmonary embolism, for which she was on Lovenox and Coumadin. Her INR is supratherapeutic today, so we discontinued Lovenox and we are holding Coumadin. We will repeat tomorrow her PT/INR. 2. Ischemic cardiomyopathy, status post percutaneous coronary intervention to left anterior descending artery. 3. She is status post [employer] dual chamber implantable cardioverter defibrillator for ejection fraction 25%. 4. Peripheral arterial disease. 5. Chronic kidney disease with baseline creatinine 1.5. 6. Hypertension. 7. Type 2 diabetes mellitus. 8. Hyperlipidemia. 9. Hypothyroidism. PLAN: To repeat her INR tomorrow. We will discontinue the Lovenox and held her Coumadin. If INR is less than 2.5, the patient can be discharged. She will follow with her primary care physician to monitor her INR and adjust the Coumadin accordingly. NABILA HARDING MD DR: COLEMAN/barak JOB#: [id number] / [id number]
[2019-01-30 23:30] VITALS: BP 118/65
[2019-01-31] MEDS: ACETAMINOPHEN 325 MG TABLET PO PRN (01:17)
[2019-01-31] MEDS: ALPRAZolam 0.25 MG TABLET PO PRN (03:51)
[2019-01-31 06:07] VITALS: BP 119/72
[2019-01-31] MEDS: LEVOTHYROXINE 100 MCG TABLET PO SCH (06:11)
[2019-01-31] MEDS: FUROSEMIDE 20 MG TABLET PO SCH (07:59)
[2019-01-31] MEDS: MAGNESIUM OXIDE 400 MG TABLET PO SCH (07:59)
[2019-01-31] MEDS: CARVEDILOL 12.5 MG TABLET PO SCH (08:00)
[2019-01-31] MEDS: POTASSIUM CHLORIDE 20 MEQ TABLET.ER. PO SCH (08:00)
[2019-01-31] MEDS: GABAPENTIN 100 MG CAPSULE. PO SCH (08:00)
[2019-01-31] MEDS: INSULIN LISPRO 300 UNITS/3 ML VIAL. SQ SCH ×2 (08:00→12:04)
[2019-01-31] MEDS: ASPIRIN ENTERIC COATED 81 MG TABLET.DR. PO SCH (08:00)
[2019-01-31] MEDS: PANTOPRAZOLE 40 MG TABLET. PO SCH (08:00)
[2019-01-31] MEDS: CLOPIDOGREL BISULFATE 75 MG TABLET PO SCH (08:00)
[2019-01-31] MEDS: CITALOPRAM 20 MG TABLET. PO SCH (08:00)
[2019-01-31] MEDS: SACUBITRIL/VALSARTAN 49/51MG TABLET. PO SCH (08:01)
[2019-01-31] MEDS: AMIODARONE HCL 200 MG TABLET PO SCH (08:01)
[2019-01-31] MEDS ORDERED: WARF1TAB74 PO (10:40)
[2019-01-31 11:04] VITALS: BP 132/73
--- NOTE | 2019-01-31 16:22 | DS ---
DATE OF DISCHARGE: 01/31/2019 HOSPITAL COURSE: The patient is resting slightly propped up in bed, in no apparent distress, awake, alert. On questioning her, denied any complaint. Nursing staff did not voice any concern. The patient was admitted with diagnosis of pulmonary embolism. She was unable to afford the newer oral anticoagulant and therefore she was started on Lovenox and Coumadin. Yesterday, the INR was 3.3, so we discontinued her Lovenox and held her Coumadin. Unfortunately, her INR continued to be still supratherapeutic today at 3.2. Therefore, decision was made to discharge her home to follow with her primary care physician to monitor her PT/INR and adjust her Coumadin. PHYSICAL EXAMINATION: GENERAL: When I examined her this morning, she looked well and was clearly in no apparent respiratory distress. She was pale. No jaundice, cyanosis or thyromegaly. No jugular venous distention. No limb edema. VITAL SIGNS: Her heart rate was 66, blood pressure 119/72, temperature was 97.5, respiratory rate 20 and oxygen saturation was 97%. HEAD, EYES, EARS, NOSE AND THROAT: Showed normocephalic, atraumatic. NECK: Supple. HEART: Showed normal first and second heart sounds. No gallop or murmur. CHEST: Clear to auscultation. No crepitation or rhonchi. ABDOMEN: Distended, soft, nontender. NEUROLOGIC: She was awake, alert, responding appropriately. All cranial nerves intact. She moves extremities without difficulty. She ambulates with a cane. Her intake was 1750, no output was recorded. LABORATORY WORK: This morning showed her serum sodium was 136, potassium 4.3, chloride 102, bicarbonate 28, anion gap of 6, BUN 22, creatinine 1.5, estimated GFR was 34 mL per minute. Her glucose was 87, calcium was 8.5. Prothrombin time was 33, INR 3.2. Her white cell count was 5800, hemoglobin 11.8, hematocrit 37, MCV 91 and platelet count of 162,000. DISCHARGE MEDICATIONS: The patient was discharged home to continue on Tylenol 650 mg every 4 hours as needed, alprazolam 0.25 mg twice a day, amiodarone 200 mg once a day, aspirin enteric-coated 81 mg once a day, atorvastatin calcium 80 mg at bedtime, carvedilol 12.5 mg twice a day, citalopram hydrobromide 20 mg daily, clopidogrel bisulfate or Plavix 75 mg once a day, fenofibrate nanocrystallized 145 mg once a day, furosemide 20 mg twice a day, gabapentin 100 mg twice a day, hydrocodone/APAP 7.5/325 one tablet twice a day. She is on Lantus 50 units at bedtime and Humalog 25 units before meals, levothyroxine 100 mcg p.o. daily, magnesium oxide 400 mg daily, Protonix 40 mg once a day, phentermine 37.5 mg daily, potassium chloride 20 mEq daily and Entresto 97/103 mg tablet 1 tablet for heart failure. FINAL DISCHARGE DIAGNOSES: 1. Acute pulmonary embolism, for which she is now on Coumadin. Her INR is supratherapeutic, so we are holding Coumadin. She will see her primary care physician tomorrow to check her PT/INR and to adjust her Coumadin. 2. Ischemic cardiomyopathy status post percutaneous coronary intervention to the left anterior descending artery. 3. She is status post [employer] dual chamber implantable cardioverter defibrillator for ejection fraction 25%. 4. Peripheral arterial disease. 5. Chronic kidney disease with baseline creatinine 1.5. 6. Hypertension. 7. Type 2 diabetes mellitus. 8. Hyperlipidemia. 9. Hypothyroidism. The patient was advised not to take any nonsteroidal anti-inflammatory medication. She was told that she is a high risk of bleeding given that she is on Plavix and aspirin. If she starts bleeding, she should come to the Emergency Room immediately. I also explained to her that many things interfere with the Coumadin, some increase its effectiveness and others decrease its effectiveness including drugs and foods and diet, antibiotics and she has to follow with her primary care physician closely. NABILA HARDING MD DR: COLEMAN/barak JOB#: [id number] / [id number]
== END 2019-01-31 13:00 | disposition home or self-care (01) | DRG 175 ==
LOC: 1 SOUTH 14:23
PROVIDERS: ADMIT Internal Medicine; ATTEND Internal Medicine
DX: I26.99 Other pulmonary embolism without acute cor pulmonale (principal); E43 Unspecified severe protein-calorie malnutrition; E87.1 Hypo-osmolality and hyponatremia; I25.5 Ischemic cardiomyopathy; E11.51 Type 2 diabetes mellitus with diabetic peripheral angiopathy without gangrene; I12.9 Hypertensive chronic kidney disease with stage 1 through stage 4 chronic kidney disease, or unspecified chronic kidney disease; E03.9 Hypothyroidism, unspecified; E78.5 Hyperlipidemia, unspecified; E11.22 Type 2 diabetes mellitus with diabetic chronic kidney disease; N18.9 Chronic kidney disease, unspecified; Z95.810 Presence of automatic (implantable) cardiac defibrillator; Z98.61 Coronary angioplasty status; Z88.0 Allergy status to penicillin; Z79.01 Long term (current) use of anticoagulants; R79.1 Abnormal coagulation profile; Z68.37 Body mass index [BMI] 37.0-37.9, adult
CPT/HCPCS: 36415; 80048; 80053; 82947; 85027; 85610; J1650; J1815; 97110; 97116; 97530; 97535

== ENCOUNTER 2019-03-19 22:13 | Emergency (ER) | payer MEDICARE, BC ==
[~2019-03-19] VITALS: Ht 157.5 cm; Wt 96.1 kg
[~2019-03-19 22:13] MED LIST changes: +FENO145T3 PO; -FENO145T30 PO; +WARF1TAB74 PO
[2019-03-19] MEDS ORDERED: IV NORMAL SALINE 1,000ML 1,000 ML IV SCH (22:24)
[2019-03-19] MEDS ORDERED: NITROGLYCERIN SUBLINGUAL 0.4 MG BOTTLE OF 25. SL PRN (22:30)
--- NOTE | 2019-03-19 22:47 | RAD ---
Exam: Chest one view INDICATION: Chest pain TECHNIQUE: Frontal view of the chest Comparisons: 01/21/2019 FINDINGS: Pacer with leads terminating the right atrium and ventricle. The cardiomediastinal silhouette and pulmonary vessels are within normal limits. Hazy bibasilar opacities noted. There may be trace bilateral pleural effusions. IMPRESSION: Findings likely representing mild pulmonary edema. Electronically signed by: Carla Cabrera MD (03/19/2019 10:44 PM) [facility]
--- NOTE | 2019-03-19 23:05 | EKG ---
[address] [address] Test Date: 2019-03-19 Test Time: 22:23:06 Pat Name: LAURE SIERRA Department: Room: Gender: F [employer]: : [id number] Requested By: SAEID GRANT Order Number: [id number] Reading MD: Measurements Intervals [place] Rate: 78 P: 42 NM: 188 QRS: 22 QRSD: 88 T: 42 QT: 440 QTc: 506 Interpretive Statements SINUS RHYTHM QRS(T) CONTOUR ABNORMALITY CONSISTENT WITH ANTEROSEPTAL INFARCT PROBABLY OLD ABNORMAL ECG RI6.01 No previous ECG available for comparison
[2019-03-19 23:22] LABS: CALCIUM 8.2 mg/dL (8.5-10.1); GFR 24.6; POTASSIUM 4.1 mmol/L (3.5-5.1)
[2019-03-19 23:23] LABS: BASO % 1 % (0-3); EOS # 0.1 x10^3/uL (0.0-0.7); EOS % 1 % (0-3); HEMATOCRIT 39.5 % (36.0-47.0); HEMOGLOBIN 12.6 g/dL (12.0-15.5); LYMPH # 1.2 x10^3/uL (1.0-4.8); LYMPH % 19 % (24-48); MEAN CORPUSCULAR HEMOGLOBIN 29 pg (25-35); MEAN CORPUSCULAR HGB CONC 32 g/dL (31-37); MEAN CORPUSCULAR VOLUME 90 fL (79-100); MONO # 0.5 x10^3/uL (0.0-1.1); MONO % 8 % (0-9); NEUT # 4.7 x10^3uL (1.8-7.7); NEUT % 72 % (31-73); PLATELET COUNT 176 x10^3/uL (140-400); RED BLOOD COUNT 4.41 x10^6/uL (3.50-5.40); RED CELL DISTRIBUTION WIDTH 14.6 % (11.5-14.5); WHITE BLOOD COUNT 6.5 x10^3/uL (4.0-11.0)
[2019-03-19 23:38] LABS: ALBUMIN 3.2 g/dL (3.4-5.0); MAGNESIUM 1.8 mg/dL (1.8-2.4); TOTAL BILIRUBIN 0.2 mg/dL (0.2-1.0); TOTAL PROTEIN 6.4 g/dL (6.4-8.2)
--- NOTE | 2019-03-20 00:09 | PHYS DOC ---
Past History Past Medical History: Anxiety, CAD, Cancer, CHF, COPD, Diabetes, GERD, High Cholesterol, Hypertension, [place], Renal Disease, Other Past Surgical History: Cancer Surgery, Hysterectomy, Pacemaker, Tonsillectomy, Other Smoking: Non-smoker Alcohol Use: Occasionally Drug Use: None Adult General Chief Complaint Chief Complaint: CHEST PAIN HPI HPI Patient is a 73 year old female who presents with complaint of chest pain. Patient states her chest pain symptoms started within 30 minutes prior to arrival. States that she first noticed symptoms while at rest. Started having substernal chest pressure which radiated up towards her neck. Does have history of coronary artery disease, congestive heart failure, and previous history of pulmonary embolism. Currently on warfarin therapy. Patient brought to the [facility] department by EMS. Was administered 324 mg of baby aspirin by EMS prior to arrival. States that her pain is currently 6 out of 10. Denies any vomiting or diaphoresis. Does note shortness of breath. Patient states that she follows with Dr. Medina of cardiology. Review of Systems Review of Systems Constitutional: Denies fever or chills [] Eyes: Denies change in visual acuity, redness, or eye pain [] HENT: Denies nasal congestion or sore throat [] Respiratory: Shortness of breath[] Cardiovascular: Chest pain[] GI: Denies abdominal pain, nausea, vomiting, bloody stools or diarrhea [] : Denies dysuria or hematuria [] Musculoskeletal: Denies back pain or joint pain [] Integument: Denies rash or skin lesions [] Neurologic: Denies headache, focal weakness or sensory changes [] All other systems were reviewed and found to be within normal limits, except as documented in this note. Current Medications Current Medications Current Medications Medications (Trade) Dose Ordered Sig/Brian Start Time Stop Time Status Last Admin Dose Admin Nitroglycerin (Nitrostat) 0.4 mg PRN Q5MIN PRN 03/19/19 22:30 03/20/19 22:29 03/19/19 22:50 0.4 MG Sodium Chloride 1,000 ml @ 100 mls/hr Q10H 03/19/19 22:24 03/20/19 08:23 03/19/19 23:05 100 MLS/HR Allergies Allergies Allergies Coded Allergies Type Severity Reaction Last Updated Verified insulin glargine Allergy Intermediate 03/19/19 Yes Physical Exam Physical Exam Constitutional: Alert, afebrile, appears in [id number] discomfort. [] HENT: Normocephalic, atraumatic, bilateral external ears normal, oropharynx moist, no oral exudates, nose normal. [] Eyes: PERRLA, EOMI, conjunctiva normal, no discharge. [] Neck: Normal range of motion, no tenderness, supple, no stridor. [] Cardiovascular:Heart rate regular rhythm, no murmur [] Lungs & Thorax: No accessory muscle usage present, rales in bilateral lower lobes, no wheezes[] Abdomen: Bowel sounds normal, soft, no tenderness, no masses, no pulsatile masses. [] Skin: Warm, dry, no erythema, no rash. [] Back: No tenderness, no CVA tenderness. [] Extremities: No tenderness, no cyanosis, no clubbing, ROM intact, 1+ edema in bilateral lower extremities. [] Neurologic: Alert and oriented X 3, normal motor function, normal sensory function, no focal deficits noted. [] Current Patient Data Vital Signs Vital Signs Date Time Temp Pulse Resp B/P (MAP) Pulse Ox O2 Delivery O2 Flow Rate FiO2 03/19/19 23:00 68 20 94 Nasal Cannula 2.0 03/19/19 22:58 96/54 (68) 03/19/19 22:20 98.3 Lab Results Laboratory Tests Test 03/19/19 22:50 White Blood Count 6.5 x10^3/uL (4.0-11.0) Red Blood Count 4.41 x10^6/uL (3.50-5.40) Hemoglobin 12.6 g/dL (12.0-15.5) Hematocrit 39.5 % (36.0-47.0) Mean Corpuscular Volume 90 fL (79-100) Mean Corpuscular Hemoglobin 29 pg (25-35) Mean Corpuscular Hemoglobin Concent 32 g/dL (31-37) Red Cell Distribution Width 14.6 % (11.5-14.5) H Platelet Count 176 x10^3/uL (140-400) Neutrophils (%) (Auto) 72 % (31-73) Lymphocytes (%) (Auto) 19 % (24-48) L Monocytes (%) (Auto) 8 % (0-9) Eosinophils (%) (Auto) 1 % (0-3) Basophils (%) (Auto) 1 % (0-3) Neutrophils # (Auto) 4.7 x10^3uL (1.8-7.7) Lymphocytes # (Auto) 1.2 x10^3/uL (1.0-4.8) Monocytes # (Auto) 0.5 x10^3/uL (0.0-1.1) Eosinophils # (Auto) 0.1 x10^3/uL (0.0-0.7) Basophils # (Auto) 0.0 x10^3/uL (0.0-0.2) Prothrombin Time 35.2 SEC (9.4-11.4) H Prothrombin Time INR 3.4 (0.9-1.1) H Activated Partial Thromboplast Time 34 SEC (23-33) H Sodium Level 141 mmol/L (136-145) Potassium Level 4.1 mmol/L (3.5-5.1) Chloride Level 105 mmol/L (98-107) Carbon Dioxide Level 28 mmol/L (21-32) Anion Gap 8 (6-14) Blood Urea Nitrogen 29 mg/dL (7-20) H Creatinine 2.0 mg/dL (0.6-1.0) H Estimated GFR (Cockcroft-Gault) 24.6 BUN/Creatinine Ratio 15 (6-20) Glucose Level 259 mg/dL (70-99) H Calcium Level 8.2 mg/dL (8.5-10.1) L Magnesium Level 1.8 mg/dL (1.8-2.4) Total Bilirubin 0.2 mg/dL (0.2-1.0) Aspartate Amino Transferase (AST) 27 U/L (15-37) Alanine Aminotransferase (ALT) 50 U/L (14-59) Alkaline Phosphatase 57 U/L (46-116) Creatine Kinase 99 U/L (26-192) Creatine Kinase MB (Mass) 1.6 ng/mL (0.0-3.6) Creatine Kinase MB Relative Index 1.6 % (0-4) Troponin I Quantitative < 0.017 ng/mL (0-0.055) Total Protein 6.4 g/dL (6.4-8.2) Albumin 3.2 g/dL (3.4-5.0) L Albumin/Globulin Ratio 1.0 (1.0-1.7) Lipase 235 U/L (73-393) EKG EKG Interpreted by me: Heart rate 78, sinus rhythm, normal intervals, normal axis, no acute ST/T-wave abnormalities present[] Radiology/Procedures Radiology/Procedures [address] [id number] IMAGING REPORT Signed PATIENT: LAURE SIERRA MACCOUNT: [id number] : 1945 LOCATION: ER AGE: 73 SEX: F EXAM STATUS: PRE ER ORD. PHYSICIAN: SAEID GRANT MD REASON: CHEST PAIN.HX PACER,DEFIBRILLATOR,LEFT MASTECTOMY PROCEDURE: PORTABLE CHEST 1V Exam: Chest one view INDICATION: Chest pain TECHNIQUE: Frontal view of the chest Comparisons: 01/21/2019 FINDINGS: Pacer with leads terminating the right atrium and ventricle. The cardiomediastinal silhouette and pulmonary vessels are within normal limits. Hazy bibasilar opacities noted. There may be trace bilateral pleural effusions. IMPRESSION: Findings likely representing mild pulmonary edema. Electronically signed by: Carla Collado MD (03/19/2019 10:44 PM) [facility] DICTATED AND SIGNED BY: CARLA COLLADO MD DATE: 03/19/192243 CC: SAEID GRANT MD; [facility] ~ [] Course & Med Decision Making Course & Med Decision Making Pertinent Labs and Imaging studies reviewed. (See chart for details) The patient was given one dose of nitroglycerin in the emergency department. She noticed mild improvement symptoms, however patient's blood pressure dropped to 90 systolic, thus further nitroglycerin was withheld. Chest x-ray shows evidence of pulmonary edema. Patient was initiated on 2 L per nasal cannula of oxygen due to drop in O2 sats 89%. Patient states after administration of oxygen, her symptoms seem to be improving at this time. Troponin is negative. Patient's INR is therapeutic at 3.4. Given patient's history and current condition, she will need admission to the hospital for further care. I contacted our hospitalist, Dr. Alex, who recommended that the patient not be admitted here at [facility] as he felt patient would need to be at a higher level of care in case she were to require any aggressive cardiac intervention. As patient's community mental health social worker is located at [facility], the patient did agree to be transferred to [facility] for further care. I spoke with Dr. West who accepted care of patient for transfer. Patient transferred by ground ambulance to [facility] for further care. Dragon Disclaimer Dragon Disclaimer This electronic medical record was generated, in whole or in part, using a voice recognition dictation system. Departure Departure: Impression: Primary Impression: Acute on chronic congestive heart failure Additional Impressions: Chest pain History of pulmonary embolism Disposition: XFER SHT-TRM HOSP Condition: STABLE Referrals: [facility] (PCP) Problem Qualifiers Primary Impression: Acute on chronic congestive heart failure Heart failure type: unspecified Qualified Codes: I50.9 - Heart failure, unspecified Additional Impressions: Chest pain Chest pain type: unspecified Qualified Codes: R07.9 - Chest pain, unspecified SAEID GRANT MD Mar 20, 2019 00:09
[2019-03-20 00:50] VITALS: BP 137/69
== END 2019-03-20 01:04 | disposition short-term general hospital (02) ==
LOC: ER 22:13
DX: I11.0 Hypertensive heart disease with heart failure (principal); I50.9 Heart failure, unspecified; F41.9 Anxiety disorder, unspecified; K21.9 Gastro-esophageal reflux disease without esophagitis; E78.00 Pure hypercholesterolemia, unspecified; E11.9 Type 2 diabetes mellitus without complications; I25.810 Atherosclerosis of coronary artery bypass graft(s) without angina pectoris; J44.9 Chronic obstructive pulmonary disease, unspecified; I25.2 Old myocardial infarction; Z90.710 Acquired absence of both cervix and uterus; Z90.89 Acquired absence of other organs
CPT/HCPCS: 36415; 71045; 80053; 82553; 83690; 83735; 83880; 84484; 85025; 85610; 85730; 93005; 99285-25; J7030

== ENCOUNTER 2019-03-25 15:36 | Inpatient (IN) | payer MEDICARE, BC ==
[2019-03-22 17:40] VITALS: BP 121/71
[~2019-03-25] VITALS: Ht 157.5 cm; Wt 95.7 kg
[2019-03-25] MEDS ORDERED: DEXTROSE 50% 25 GM / 50ML DISP.SYRIN. IV PRN (18:45)
[2019-03-25] MEDS: GABAPENTIN 100 MG CAPSULE. PO SCH (20:36)
[2019-03-25] MEDS: FENOFIBRATE NANOCRYSTALLIZED 145 MG TABLET PO SCH (20:36)
[2019-03-25] MEDS: ATORVASTATIN CALCIUM 20 MG TABLET PO SCH (20:36)
[2019-03-25] MEDS: AMOXICILLIN/K CLAV 875/125MG TABLET. PO SCH (20:36)
[2019-03-25] MEDS: HYDROcodone/APAP 7.5/325MG 1 TAB TABLET PO PRN (20:38)
[2019-03-25] MEDS: ENOXAPARIN ** NOTE DOSE ** SYRINGE SQ SCH (20:38)
[2019-03-25] MEDS ORDERED: INSULIN GLARGINE SYRINGE. SQ SCH (21:00)
[2019-03-25] MEDS: ALPRAZolam 0.25 MG TABLET PO PRN (23:49)
[2019-03-26] MEDS: LEVOTHYROXINE 100 MCG TABLET PO SCH (05:12)
[2019-03-26 05:48] VITALS: BP 116/50
[2019-03-26] MEDS: ACETAMINOPHEN 325 MG TABLET PO PRN ×2 (07:07→14:52)
[2019-03-26 07:15] VITALS: BP 98/46
[2019-03-26] MEDS: AMOXICILLIN/K CLAV 875/125MG TABLET. PO SCH ×2 (07:47→21:14)
[2019-03-26] MEDS: POTASSIUM CHLORIDE 20 MEQ TABLET.ER. PO SCH (07:48)
[2019-03-26] MEDS: DOCUSATE SODIUM 100 MG CAPSULE PO PRN (07:48)
[2019-03-26] MEDS: GABAPENTIN 100 MG CAPSULE. PO SCH ×2 (07:48→21:15)
[2019-03-26] MEDS: AMIODARONE HCL 200 MG TABLET PO SCH (07:49)
[2019-03-26] MEDS: CARVEDILOL 12.5 MG TABLET PO SCH ×2 (07:49→16:59)
[2019-03-26] MEDS: PANTOPRAZOLE 40 MG TABLET. PO SCH (07:49)
[2019-03-26] MEDS: CITALOPRAM 20 MG TABLET. PO SCH (07:49)
[2019-03-26] MEDS: CLOPIDOGREL BISULFATE 75 MG TABLET PO SCH (07:49)
[2019-03-26] MEDS: ASPIRIN ENTERIC COATED 81 MG TABLET.DR. PO SCH (07:49)
[2019-03-26] MEDS: ENOXAPARIN ** NOTE DOSE ** SYRINGE SQ SCH ×2 (07:50→21:29)
[2019-03-26] MEDS: LACTOBACILLUS RHAMNOSUS GG 1 CAPSULE. PO SCH ×2 (07:53→21:14)
[2019-03-26] MEDS ORDERED: INSULIN LISPRO 300 UNITS/3 ML VIAL. SQ SCH (08:00)
[2019-03-26] MEDS ORDERED: FUROSEMIDE 20 MG TABLET PO SCH (09:00)
[2019-03-26] MEDS ORDERED: WARFARIN 1 MG TABLET. PO SCH (09:00)
[2019-03-26] MEDS ORDERED: SACUBITRIL/VALSARTAN 49/51MG TABLET. PO SCH (09:00)
[2019-03-26 09:15] VITALS: BP 99/34
[2019-03-26 11:05] VITALS: BP 109/49
[2019-03-26 11:06] VITALS: BP 93/33
[2019-03-26 12:06] VITALS: BP 111/57
[2019-03-26] MEDS ORDERED: INSULIN GLARGINE SYRINGE. SQ SCH (14:00)
[2019-03-26] MEDS: INSULIN LISPRO 300 UNITS/3 ML VIAL. SQ SCH ×2 (14:45→16:58)
[2019-03-26] MEDS ORDERED: WARFARIN 5 MG TABLET. PO ONE (16:00)
--- NOTE | 2019-03-26 16:04 | HP ---
ADMIT DATE: 03/25/2019 HISTORY OF PRESENT ILLNESS: The patient is a 73-year-old female patient who was apparently admitted to [facility] with a complaint of chest pain. She was seen in consultation at that time by the Cardiology team and had 3 sets of cardiac enzymes that ruled out myocardial infarction. She has had further investigation done and apparently had abdominal ultrasound. The abdominal ultrasound showed the gallbladder is present without intraluminal abnormality, wall thickening or pericholecystic fluid; however, she did have a CT scan of the abdomen, which showed that there is no evidence of acute appendicitis, there is no urolithiasis or hydronephrosis, nonspecific mild strandy changes in the bilateral perinephric fat. There is maybe borderline gallbladder wall thickening and also subtle hazy density closer to the gallbladder fundus which could be due to underlying inflammatory changes, and therefore, the patient underwent a HIDA scan which showed non-filling of the gallbladder is compatible with acute cholecystitis, correlated with other clinical data. Delayed imaging at 0400 hours could increase specifically delayed clearance of radiotracer from the blood pool, and therefore, the patient eventually underwent laparoscopic cholecystectomy and intraoperative cholangiogram and postoperatively after stabilization, the patient was transferred to [facility] to continue the process of rehabilitation. PAST MEDICAL HISTORY: Significant for coronary artery disease, status post drug-eluting stents to left anterior descending. She has history of cancer, congestive heart failure with ejection fraction 25% with status post AICD, chronic obstructive pulmonary disease, type 2 diabetes mellitus, left mastectomy, gastroesophageal reflux disease, hyperlipidemia, hypertension, chronic kidney disease. PAST SURGICAL HISTORY: Significant for left mastectomy, tubal ligation, tonsillectomy, hysterectomy and AICD as well as drug-eluting stent deployment, stent to left anterior descending. FAMILY HISTORY: Significant for heart disease. SOCIAL HISTORY: She lives at home. She does not smoke, drink alcohol or use recreational drugs. ALLERGIES: SHE IS ALLERGIC TO GLARGINE INSULIN. MEDICATIONS: She is currently on Entresto 49/51 mg once a day, furosemide 40 mg once a day. She is on warfarin 5 mg once a day, lactobacillus rhamnosus 1 capsule twice a day, potassium chloride 20 mEq once a day, Protonix 40 mg once a day, Plavix 75 mg once a day, citalopram hydrobromide 20 mg daily, aspirin 81 mg once a day, amiodarone 200 mg daily. She is on Humalog insulin 25 units 3 times a day with meals, carvedilol 12.5 mg twice a day with meals, levothyroxine 100 mcg once a day. She is on Lovenox 100 mg subcutaneously q.12 hourly. She is on amoxicillin/clavulanic acid 875 mg twice a day, Lantus insulin 50 units at bedtime, atorvastatin 40 mg at bedtime, gabapentin 100 mg twice a day, fenofibrate 145 mg once a day. REVIEW OF SYSTEMS: The patient did complain of pain in her right upper quadrant. Denied any nausea or vomiting. Denied any diarrhea or constipation. Denied any chills, rigors or fever. PHYSICAL EXAMINATION: GENERAL: When I examined her this afternoon, she was resting slightly propped up in bed, sleeping comfortably in bed, in no apparent distress. She was pale, but no jaundice or cyanosis. No lymphadenopathy, no thyromegaly. No jugular venous distention. No lower limb edema. VITAL SIGNS: Her heart rate was 62, blood pressure was 111/57, temperature was 97, respiratory rate was 20, and oxygen saturation was 96% on room air. HEAD, EYES, EARS, NOSE AND THROAT: Showed normocephalic, atraumatic. NECK: Supple. HEART: Showed normal first and second heart sounds. No gallop or murmur. CHEST: Clear to auscultation. No crepitation or rhonchi. ABDOMEN: Distended, soft with a YAMEL drain in the right upper quadrant. There is mild tenderness in the right upper quadrant. There is no guarding or rigidity. No organomegaly. All hernial orifices intact. Bowel sounds normal. NEUROLOGIC: She was awake, alert, responding appropriately. All cranial nerves intact. She moves extremities without difficulty. Neurologically, she was grossly intact. PLAN: My plan is to arrange for her to repeat her labs. We will check her CBC, CMP daily PT/INR and aiming for an INR of 2-2.5. We will discontinue Lovenox once the INR is 2 or more than 2. NABILA HARDING MD DR: COLEMAN/barak JOB#: [id number] / [id number]
[2019-03-26] MEDS: ATORVASTATIN CALCIUM 20 MG TABLET PO SCH (21:14)
[2019-03-26] MEDS: ALPRAZolam 0.25 MG TABLET PO PRN (21:15)
[2019-03-26] MEDS: HYDROcodone/APAP 7.5/325MG 1 TAB TABLET PO PRN (21:15)
[2019-03-26] MEDS: FENOFIBRATE NANOCRYSTALLIZED 145 MG TABLET PO SCH (21:15)
[2019-03-26] MEDS: INSULIN GLARGINE SYRINGE. SQ SCH (21:27)
[2019-03-27] MEDS: LEVOTHYROXINE 100 MCG TABLET PO SCH (06:00)
[2019-03-27 06:30] VITALS: BP 147/63
[2019-03-27 07:34] LABS: HEMATOCRIT 34.3 % (36.0-47.0); RED BLOOD COUNT 3.88 x10^6/uL (3.50-5.40); RED CELL DISTRIBUTION WIDTH 14.7 % (11.5-14.5); WHITE BLOOD COUNT 7.3 x10^3/uL (4.0-11.0)
[2019-03-27 07:50] LABS: ALBUMIN 2.5 g/dL (3.4-5.0); ALBUMIN/GLOBULIN RATIO 0.7 (1.0-1.7); CALCIUM 8.2 mg/dL (8.5-10.1); CREATININE 1.3 mg/dL (0.6-1.0); GFR 40.4; POTASSIUM 4.4 mmol/L (3.5-5.1); TOTAL BILIRUBIN 0.5 mg/dL (0.2-1.0); TOTAL PROTEIN 6.2 g/dL (6.4-8.2)
[2019-03-27] MEDS ORDERED: FUROSEMIDE 20 MG TABLET PO SCH (09:00)
[2019-03-27] MEDS: GABAPENTIN 100 MG CAPSULE. PO SCH ×2 (09:44→20:48)
[2019-03-27] MEDS: LACTOBACILLUS RHAMNOSUS GG 1 CAPSULE. PO SCH ×2 (09:44→20:48)
[2019-03-27] MEDS: CARVEDILOL 12.5 MG TABLET PO SCH ×2 (09:44→17:04)
[2019-03-27] MEDS: CLOPIDOGREL BISULFATE 75 MG TABLET PO SCH (09:45)
[2019-03-27] MEDS: PANTOPRAZOLE 40 MG TABLET. PO SCH (09:45)
[2019-03-27] MEDS: AMOXICILLIN/K CLAV 875/125MG TABLET. PO SCH ×2 (09:46→20:48)
[2019-03-27] MEDS: AMIODARONE HCL 200 MG TABLET PO SCH (09:46)
[2019-03-27] MEDS: POTASSIUM CHLORIDE 20 MEQ TABLET.ER. PO SCH (09:46)
[2019-03-27] MEDS: CITALOPRAM 20 MG TABLET. PO SCH (09:47)
[2019-03-27] MEDS: ASPIRIN ENTERIC COATED 81 MG TABLET.DR. PO SCH (09:47)
[2019-03-27] MEDS: SACUBITRIL/VALSARTAN 49/51MG TABLET. PO SCH (09:48)
[2019-03-27] MEDS: ENOXAPARIN ** NOTE DOSE ** SYRINGE SQ SCH ×2 (09:48→20:48)
[2019-03-27] MEDS: INSULIN LISPRO 300 UNITS/3 ML VIAL. SQ SCH ×3 (10:02→17:35)
[2019-03-27] MEDS: HYDROcodone/APAP 7.5/325MG 1 TAB TABLET PO PRN (15:01)
[2019-03-27] MEDS: FUROSEMIDE 20 MG TABLET PO SCH (15:01)
[2019-03-27] MEDS ORDERED: WARFARIN 5 MG TABLET. PO ONE (16:00)
[2019-03-27 17:31] VITALS: BP 132/61
[2019-03-27] MEDS: FENOFIBRATE NANOCRYSTALLIZED 145 MG TABLET PO SCH (20:48)
[2019-03-27] MEDS: ALPRAZolam 0.25 MG TABLET PO PRN (20:48)
[2019-03-27] MEDS: ATORVASTATIN CALCIUM 20 MG TABLET PO SCH (20:48)
[2019-03-27] MEDS: DOCUSATE SODIUM 100 MG CAPSULE PO PRN (20:48)
[2019-03-27] MEDS: INSULIN GLARGINE SYRINGE. SQ SCH (20:57)
[2019-03-28] MEDS: LEVOTHYROXINE 100 MCG TABLET PO SCH (05:44)
[2019-03-28] MEDS: ACETAMINOPHEN 325 MG TABLET PO PRN (05:49)
[2019-03-28 05:55] VITALS: BP 148/68
[2019-03-28 07:45] VITALS: BP 152/63
[2019-03-28] MEDS: INSULIN LISPRO 300 UNITS/3 ML VIAL. SQ SCH ×3 (08:11→17:00)
[2019-03-28] MEDS: CITALOPRAM 20 MG TABLET. PO SCH (08:14)
[2019-03-28] MEDS: CLOPIDOGREL BISULFATE 75 MG TABLET PO SCH (08:14)
[2019-03-28] MEDS: SACUBITRIL/VALSARTAN 49/51MG TABLET. PO SCH (08:14)
[2019-03-28] MEDS: AMOXICILLIN/K CLAV 875/125MG TABLET. PO SCH ×2 (08:14→22:20)
[2019-03-28] MEDS: LACTOBACILLUS RHAMNOSUS GG 1 CAPSULE. PO SCH ×2 (08:14→22:19)
[2019-03-28] MEDS: ASPIRIN ENTERIC COATED 81 MG TABLET.DR. PO SCH (08:15)
[2019-03-28] MEDS: POTASSIUM CHLORIDE 20 MEQ TABLET.ER. PO SCH (08:15)
[2019-03-28] MEDS: CARVEDILOL 12.5 MG TABLET PO SCH ×2 (08:15→17:00)
[2019-03-28] MEDS: GABAPENTIN 100 MG CAPSULE. PO SCH ×2 (08:15→22:18)
[2019-03-28] MEDS: FUROSEMIDE 20 MG TABLET PO SCH ×2 (08:16→14:00)
[2019-03-28] MEDS: PANTOPRAZOLE 40 MG TABLET. PO SCH (08:16)
[2019-03-28] MEDS: ENOXAPARIN ** NOTE DOSE ** SYRINGE SQ SCH ×2 (08:16→22:20)
[2019-03-28] MEDS: AMIODARONE HCL 200 MG TABLET PO SCH (08:16)
[2019-03-28 15:09] LABS: HEMATOCRIT 36.2 % (36.0-47.0); HEMOGLOBIN 11.5 g/dL (12.0-15.5); RED BLOOD COUNT 4.04 x10^6/uL (3.50-5.40); WHITE BLOOD COUNT 8.7 x10^3/uL (4.0-11.0)
[2019-03-28 15:20] LABS: CALCIUM 8.7 mg/dL (8.5-10.1); CREATININE 1.4 mg/dL (0.6-1.0); GFR 37.1; POTASSIUM 4.8 mmol/L (3.5-5.1)
[2019-03-28] MEDS ORDERED: WARFARIN 7.5 MG TABLET. PO ONE (16:00)
[2019-03-28 18:26] VITALS: BP 129/53
--- NOTE | 2019-03-28 19:29 | RAD ---
CT ABDOMEN PELVIS WO CONTRAST INDICATION: Abdominal distention EXAM: Noncontrast CT of the abdomen and pelvis. Coronal and sagittal reformatted images were performed. PQRS compliance statement: One or more of the following individualized dose reduction techniques were utilized for this examination: 1. Automated exposure control 2. Adjustment of the mA and/or kV according to patient size 3. Use of iterative reconstruction technique COMPARISON: 03/21/2019 FINDINGS: Lower chest: Bibasilar dependent and subsegmental atelectasis. Cardiomegaly. Coronary artery atherosclerotic disease ABDOMEN: Liver: The noncontrast liver is homogeneous in attenuation. Gallbladder and biliary: Postsurgical changes of interval cholecystectomy. Collection of fluid and gas in the gallbladder fossa measuring 5 x 2.5 x 2.7 cm with an adjacent percutaneous surgical drain. Normal caliber bile ducts. Spleen: Normal spleen. Pancreas: The noncontrast pancreas is homogeneous in attenuation without peripancreatic inflammatory changes. Adrenal glands: Normal adrenal glands. Kidneys and ureters: No opaque urinary calculi. Mild bilateral nonspecific perinephric stranding. No hydronephrosis. GI tract: The stomach is decompressed and poorly evaluated. Normal caliber small bowel and colon. Appendix is not seen. Vascular structures: Normal caliber abdominal aorta. Mild aortoiliac atherosclerotic disease. Lymph nodes: No lymphadenopathy in the abdomen or pelvis. PELVIS: Genitourinary system: Normal bladder. SKELETAL STRUCTURES AND SOFT TISSUES: Degenerative changes of the spine. IMPRESSION: 1. Interval cholecystectomy with collection of fluid and gas in the gallbladder fossa and adjacent percutaneous surgical drain. 2. Normal caliber large and small bowel. Electronically signed by: Rikki Ling MD (03/28/2019 7:26 PM) [facility]
[2019-03-28] MEDS: ALPRAZolam 0.25 MG TABLET PO PRN (22:18)
[2019-03-28] MEDS: FENOFIBRATE NANOCRYSTALLIZED 145 MG TABLET PO SCH (22:19)
[2019-03-28] MEDS: HYDROcodone/APAP 7.5/325MG 1 TAB TABLET PO PRN (22:19)
[2019-03-28] MEDS: ATORVASTATIN CALCIUM 20 MG TABLET PO SCH (22:19)
[2019-03-28] MEDS: INSULIN GLARGINE SYRINGE. SQ SCH (22:31)
[2019-03-29] MEDS: BENZOCAINE/MENTHOL LOZNGE 18'S BOX. PO PRN (01:44)
[2019-03-29 05:46] VITALS: BP 131/57
[2019-03-29] MEDS: LEVOTHYROXINE 100 MCG TABLET PO SCH (06:55)
[2019-03-29] MEDS: GABAPENTIN 100 MG CAPSULE. PO SCH ×2 (08:20→21:57)
[2019-03-29] MEDS: ENOXAPARIN ** NOTE DOSE ** SYRINGE SQ SCH ×2 (08:20→21:56)
[2019-03-29] MEDS: FUROSEMIDE 20 MG TABLET PO SCH ×2 (08:20→14:33)
[2019-03-29] MEDS: AMOXICILLIN/K CLAV 875/125MG TABLET. PO SCH ×2 (08:21→21:57)
[2019-03-29] MEDS: CLOPIDOGREL BISULFATE 75 MG TABLET PO SCH (08:21)
[2019-03-29] MEDS: CARVEDILOL 12.5 MG TABLET PO SCH ×2 (08:21→17:16)
[2019-03-29] MEDS: CITALOPRAM 20 MG TABLET. PO SCH (08:21)
[2019-03-29] MEDS: LACTOBACILLUS RHAMNOSUS GG 1 CAPSULE. PO SCH ×2 (08:21→21:57)
[2019-03-29] MEDS: POTASSIUM CHLORIDE 20 MEQ TABLET.ER. PO SCH (08:21)
[2019-03-29] MEDS: PANTOPRAZOLE 40 MG TABLET. PO SCH (08:22)
[2019-03-29] MEDS: SACUBITRIL/VALSARTAN 49/51MG TABLET. PO SCH (08:22)
[2019-03-29] MEDS: AMIODARONE HCL 200 MG TABLET PO SCH (08:22)
[2019-03-29] MEDS: ASPIRIN ENTERIC COATED 81 MG TABLET.DR. PO SCH (08:22)
[2019-03-29] MEDS: INSULIN LISPRO 300 UNITS/3 ML VIAL. SQ SCH ×3 (08:25→17:20)
[2019-03-29] MEDS ORDERED: WARFARIN 7.5 MG TABLET. PO ONE (16:00)
[2019-03-29 17:00] VITALS: BP 110/54
[2019-03-29] MEDS: INSULIN GLARGINE SYRINGE. SQ SCH (21:00)
[2019-03-29] MEDS: ATORVASTATIN CALCIUM 20 MG TABLET PO SCH (21:56)
[2019-03-29] MEDS: FENOFIBRATE NANOCRYSTALLIZED 145 MG TABLET PO SCH (21:56)
[2019-03-29] MEDS: ALPRAZolam 0.25 MG TABLET PO PRN (21:57)
[2019-03-29] MEDS: HYDROcodone/APAP 7.5/325MG 1 TAB TABLET PO PRN (21:58)
[2019-03-30 05:34] VITALS: BP 131/51
[2019-03-30] MEDS: LEVOTHYROXINE 100 MCG TABLET PO SCH (05:44)
[2019-03-30] MEDS: ACETAMINOPHEN 325 MG TABLET PO PRN (05:44)
[2019-03-30] MEDS: DOCUSATE SODIUM 100 MG CAPSULE PO PRN (05:57)
[2019-03-30] MEDS: ENOXAPARIN ** NOTE DOSE ** SYRINGE SQ SCH ×2 (08:48→21:00)
[2019-03-30] MEDS: AMIODARONE HCL 200 MG TABLET PO SCH (08:48)
[2019-03-30] MEDS: LACTOBACILLUS RHAMNOSUS GG 1 CAPSULE. PO SCH ×2 (08:48→20:37)
[2019-03-30] MEDS: CLOPIDOGREL BISULFATE 75 MG TABLET PO SCH (08:49)
[2019-03-30] MEDS: POTASSIUM CHLORIDE 20 MEQ TABLET.ER. PO SCH (08:49)
[2019-03-30] MEDS: CARVEDILOL 12.5 MG TABLET PO SCH ×3 (08:49→17:38)
[2019-03-30] MEDS: GABAPENTIN 100 MG CAPSULE. PO SCH ×2 (08:49→20:37)
[2019-03-30] MEDS: CITALOPRAM 20 MG TABLET. PO SCH (08:50)
[2019-03-30] MEDS: ASPIRIN ENTERIC COATED 81 MG TABLET.DR. PO SCH (08:50)
[2019-03-30] MEDS: SACUBITRIL/VALSARTAN 49/51MG TABLET. PO SCH (08:50)
[2019-03-30] MEDS: PANTOPRAZOLE 40 MG TABLET. PO SCH (08:50)
[2019-03-30] MEDS: AMOXICILLIN/K CLAV 875/125MG TABLET. PO SCH ×2 (08:50→20:37)
[2019-03-30] MEDS: INSULIN LISPRO 300 UNITS/3 ML VIAL. SQ SCH ×3 (08:57→17:45)
[2019-03-30] MEDS: FUROSEMIDE 20 MG TABLET PO SCH ×2 (09:14→13:45)
[2019-03-30] MEDS: HYDROcodone/APAP 7.5/325MG 1 TAB TABLET PO PRN ×2 (10:49→22:27)
[2019-03-30 13:40] VITALS: BP 146/38
[2019-03-30] MEDS ORDERED: WARFARIN 5 MG TABLET. PO ONE (16:00)
[2019-03-30] MEDS: ATORVASTATIN CALCIUM 20 MG TABLET PO SCH (20:36)
[2019-03-30] MEDS: ALPRAZolam 0.25 MG TABLET PO PRN (20:36)
[2019-03-30] MEDS: FENOFIBRATE NANOCRYSTALLIZED 145 MG TABLET PO SCH (20:37)
[2019-03-30 20:53] VITALS: BP 106/65
[2019-03-30 21:42] LABS: BASO % 0 % (0-3); EOS # 0.1 x10^3/uL (0.0-0.7); EOS % 1 % (0-3); HEMOGLOBIN 9.6 g/dL (12.0-15.5); LYMPH # 1.3 x10^3/uL (1.0-4.8); LYMPH % 12 % (24-48); MEAN CORPUSCULAR HEMOGLOBIN 29 pg (25-35); MEAN CORPUSCULAR HGB CONC 32 g/dL (31-37); MEAN CORPUSCULAR VOLUME 89 fL (79-100); MONO # 0.9 x10^3/uL (0.0-1.1); MONO % 8 % (0-9); NEUT # 8.8 x10^3uL (1.8-7.7); NEUT % 80 % (31-73); PLATELET COUNT 213 x10^3/uL (140-400); RED BLOOD COUNT 3.37 x10^6/uL (3.50-5.40); RED CELL DISTRIBUTION WIDTH 15.2 % (11.5-14.5)
[2019-03-30 21:44] LABS: CREATININE 1.7 mg/dL (0.6-1.0); GFR 29.6; POTASSIUM 4.6 mmol/L (3.5-5.1)
[2019-03-30] MEDS: INSULIN GLARGINE SYRINGE. SQ SCH (22:33)
[2019-03-30 23:06] VITALS: BP 105/65
[2019-03-31] MEDS: LEVOTHYROXINE 100 MCG TABLET PO SCH (05:39)
[2019-03-31 05:47] VITALS: BP 114/68
[2019-03-31] MEDS: LACTOBACILLUS RHAMNOSUS GG 1 CAPSULE. PO SCH ×2 (08:39→20:47)
[2019-03-31] MEDS: PANTOPRAZOLE 40 MG TABLET. PO SCH (08:39)
[2019-03-31] MEDS: ASPIRIN ENTERIC COATED 81 MG TABLET.DR. PO SCH (08:39)
[2019-03-31] MEDS: CLOPIDOGREL BISULFATE 75 MG TABLET PO SCH (08:39)
[2019-03-31] MEDS: FUROSEMIDE 20 MG TABLET PO SCH ×2 (08:39→14:02)
[2019-03-31] MEDS: BENZOCAINE/MENTHOL LOZNGE 18'S BOX. PO PRN (08:39)
[2019-03-31] MEDS: AMIODARONE HCL 200 MG TABLET PO SCH (08:40)
[2019-03-31] MEDS: GABAPENTIN 100 MG CAPSULE. PO SCH ×2 (08:40→20:47)
[2019-03-31] MEDS: POTASSIUM CHLORIDE 20 MEQ TABLET.ER. PO SCH (08:40)
[2019-03-31] MEDS: AMOXICILLIN/K CLAV 875/125MG TABLET. PO SCH ×2 (08:40→20:46)
[2019-03-31] MEDS: CITALOPRAM 20 MG TABLET. PO SCH (08:40)
[2019-03-31] MEDS: SACUBITRIL/VALSARTAN 49/51MG TABLET. PO SCH (08:50)
[2019-03-31] MEDS: INSULIN LISPRO 300 UNITS/3 ML VIAL. SQ SCH ×3 (09:00→17:24)
[2019-03-31] MEDS: DOCUSATE SODIUM 100 MG CAPSULE PO PRN (09:02)
[2019-03-31] MEDS: CARVEDILOL 12.5 MG TABLET PO SCH ×2 (09:05→17:00)
[2019-03-31 09:07] VITALS: BP 117/70
[2019-03-31 13:30] LABS: HEMATOCRIT 27.7 % (36.0-47.0); HEMOGLOBIN 8.8 g/dL (12.0-15.5); RED BLOOD COUNT 3.12 x10^6/uL (3.50-5.40); WHITE BLOOD COUNT 10.1 x10^3/uL (4.0-11.0)
[2019-03-31 14:57] VITALS: BP 124/70
[2019-03-31 17:20] VITALS: BP 106/58
[2019-03-31] MEDS: ATORVASTATIN CALCIUM 20 MG TABLET PO SCH (20:47)
[2019-03-31] MEDS: INSULIN GLARGINE SYRINGE. SQ SCH (20:53)
[2019-03-31] MEDS: FENOFIBRATE NANOCRYSTALLIZED 145 MG TABLET PO SCH (20:54)
[2019-03-31] MEDS: ACETAMINOPHEN 325 MG TABLET PO PRN (22:31)
[2019-04-01 04:50] VITALS: BP 131/64
[2019-04-01] MEDS: LEVOTHYROXINE 100 MCG TABLET PO SCH (06:00)
[2019-04-01 06:39] LABS: BASO % 0 % (0-3); EOS # 0.1 x10^3/uL (0.0-0.7); EOS % 1 % (0-3); HEMATOCRIT 25.2 % (36.0-47.0); HEMOGLOBIN 8.2 g/dL (12.0-15.5); LYMPH # 1.5 x10^3/uL (1.0-4.8); LYMPH % 16 % (24-48); MEAN CORPUSCULAR HEMOGLOBIN 29 pg (25-35); MEAN CORPUSCULAR HGB CONC 33 g/dL (31-37); MEAN CORPUSCULAR VOLUME 88 fL (79-100); MONO # 0.9 x10^3/uL (0.0-1.1); MONO % 9 % (0-9); NEUT # 6.8 x10^3uL (1.8-7.7); NEUT % 73 % (31-73); PLATELET COUNT 198 x10^3/uL (140-400); RED BLOOD COUNT 2.87 x10^6/uL (3.50-5.40); WHITE BLOOD COUNT 9.3 x10^3/uL (4.0-11.0)
[2019-04-01] MEDS: DOCUSATE SODIUM 100 MG CAPSULE PO PRN (08:12)
[2019-04-01] MEDS: LACTOBACILLUS RHAMNOSUS GG 1 CAPSULE. PO SCH (08:12)
[2019-04-01] MEDS: SACUBITRIL/VALSARTAN 49/51MG TABLET. PO SCH (08:12)
[2019-04-01] MEDS: CITALOPRAM 20 MG TABLET. PO SCH (08:12)
[2019-04-01] MEDS: AMIODARONE HCL 200 MG TABLET PO SCH (08:12)
[2019-04-01] MEDS: GABAPENTIN 100 MG CAPSULE. PO SCH (08:13)
[2019-04-01] MEDS: FUROSEMIDE 20 MG TABLET PO SCH (08:13)
[2019-04-01] MEDS: AMOXICILLIN/K CLAV 875/125MG TABLET. PO SCH (08:13)
[2019-04-01] MEDS: PANTOPRAZOLE 40 MG TABLET. PO SCH (08:13)
[2019-04-01] MEDS: CARVEDILOL 12.5 MG TABLET PO SCH (08:13)
[2019-04-01] MEDS: INSULIN LISPRO 300 UNITS/3 ML VIAL. SQ SCH (08:17)
[2019-04-01] MEDS: POTASSIUM CHLORIDE 20 MEQ TABLET.ER. PO SCH (08:17)
[2019-04-01 10:33] VITALS: BP 122/64
--- NOTE | 2019-04-01 16:26 | DS ---
DATE OF DISCHARGE: 04/01/2019 HOSPITAL COURSE: The patient is a 73-year-old female patient who was originally admitted to [facility] with a complaint of chest pain. She was seen in consultation at that time by the Cardiology team and has had 3 sets of cardiac enzymes that rule out myocardial infarction. She had further investigation done. Apparently had an abdominal ultrasound, which showed that the gallbladder is present without intraluminal abnormalities or wall thickening or pericholecystic fluid; however, she has had a CT scan of the abdomen, which showed that there is no evidence of acute appendicitis. There is no urolithiasis or hydronephrosis, nonspecific mild strandy changes in the bilateral perinephric fat. There is maybe borderline gallbladder wall thickening and also subtle hazy density closer to the gallbladder fundus, which could be due to underlying inflammatory changes and therefore, the patient underwent HIDA scan, which showed a non-filling of the gallbladder, compatible with acute cholecystitis and correlated with other clinical delayed imaging at 4 hours could increase specifically delayed clearance of radiotracer from the blood pool and therefore, the patient eventually underwent laparoscopic cholecystectomy with intraoperative cholangiogram and postoperatively. After stabilization, she was transferred to [facility] bed. The patient was on Lovenox as a bridge with Coumadin. She is also on Plavix and unfortunately she started bleeding from the drain that was at the gallbladder fossa. As she is known to have bilateral pulmonary emboli, we did actually CT scan of the abdomen and pelvis, which showed that there is interval cholecystectomy with collection of fluid and gas in the gallbladder fossa adjacent percutaneous surgical drain and normal caliber large and small bowel. The patient's blood count started drifting down. In fact, when she arrived here, her hemoglobin was 11, hematocrit 34 and today, the hemoglobin dropped down to 8.2 and 25 despite stopping the Coumadin and Lovenox as well as Plavix yesterday and therefore, a decision was made to transfer her to [facility] to consult the surgical team. I held all her blood thinners and consulted Dr. Murillo for possibility of placing an inferior vena cava filter to protect her lung and hopefully discontinue the anticoagulant. PHYSICAL EXAMINATION: Today, she looked well and was clearly pale, but no jaundice, cyanosis or thyromegaly. No jugular venous distention or limb edema. VITAL SIGNS: Her heart rate was 90, blood pressure was 122/64, temperature was 97.7, respiratory rate 20, and oxygen saturation was 97% on 2 liters of oxygen. HEAD, EYES, EARS, NOSE AND THROAT: Showed normocephalic, atraumatic. NECK: Supple. HEART: Showed normal first and second heart sounds. No gallop or murmur. CHEST: Clear to auscultation. No crepitation or rhonchi. ABDOMEN: Markedly distended, soft, nontender. She has a YAMEL drain in the right upper quadrant, draining seems to be blood. NEUROLOGIC: She was awake, alert, responding appropriately. All cranial nerves intact. EXTREMITIES: She moves extremities without difficulty. LABORATORY DATA: Her lab work this morning showed a white cell count 9300, hemoglobin 8, hematocrit 25, MCV 88 and platelet count of 198,000. Her chemistry showed a serum sodium of 138, potassium 4.6, chloride 102, bicarbonate 28, anion gap of 8, BUN 25, creatinine 1.7, estimated GFR was 29 mL per minute. Her glucose 225 and calcium was 8. Her prothrombin time was 20.3 and INR of 2 as of this morning. She was transferred to [facility] to continue on all her medication except her Coumadin as well as her Plavix. FINAL DISCHARGE DIAGNOSES: Acute blood loss anemia, GI bleed through the YAMEL drain from the gallbladder fossa. Other medical problems include coronary artery disease, status post drug-eluting stent to the left anterior descending. She has a history of cancer, congestive heart failure with ejection fraction 25%, status post AICD, chronic obstructive pulmonary disease, type 2 diabetes mellitus, left mastectomy, gastroesophageal reflux disease, hyperlipidemia, hypertension, chronic kidney disease as well as bilateral pulmonary emboli. NABILA HARDING MD DR: COLEMAN/barak JOB#: [id number] / [id number]
== END 2019-04-01 11:20 | disposition short-term general hospital (02) | DRG 313 ==
LOC: LND 17:20
PROVIDERS: ADMIT Internal Medicine; ATTEND Internal Medicine
DX: R07.9 Chest pain, unspecified (principal); I26.99 Other pulmonary embolism without acute cor pulmonale; D62 Acute posthemorrhagic anemia; I13.0 Hypertensive heart and chronic kidney disease with heart failure and stage 1 through stage 4 chronic kidney disease, or unspecified chronic kidney disease; K92.2 Gastrointestinal hemorrhage, unspecified; E11.22 Type 2 diabetes mellitus with diabetic chronic kidney disease; E78.5 Hyperlipidemia, unspecified; I25.10 Atherosclerotic heart disease of native coronary artery without angina pectoris; I50.9 Heart failure, unspecified; J44.9 Chronic obstructive pulmonary disease, unspecified; N18.9 Chronic kidney disease, unspecified; Z79.02 Long term (current) use of antithrombotics/antiplatelets; Z86.711 Personal history of pulmonary embolism; Z90.12 Acquired absence of left breast and nipple; Z90.710 Acquired absence of both cervix and uterus; Z95.810 Presence of automatic (implantable) cardiac defibrillator; K21.9 Gastro-esophageal reflux disease without esophagitis
CPT/HCPCS: 36415; 74176; 80048; 80053; 82947; 85025; 85027; 85610; 85730; J1650; J1815; 97110; 97116; 97530; 97535

== ENCOUNTER → 2020-10-10 | Outpatient (CLI) | payer MEDICARE, BC ==
[~2020-10-10] MED LIST changes: -AMIO200T4 PO; +AMIO200T6 PO; -ASPI-612 PO; +ASPI-889 PO; -PANT40TA5 PO; +PANT40TA6 PO; -PHEN37.5 PO; +PHEN37.59 PO; +REGADENOSON 0.4 MG/5 ML DISP.SYRIN. IV ONE; +WARF1TAB2 PO; -WARF1TAB74 PO
--- NOTE | 2020-10-10 17:57 | CARD ---
MR#: [id number] Date of Study: 10/10/2020 Ordering Physician: ADITI HUERTA, Referring Physician: ADITI HUERTA, Tech: Ralf Cosme [facility] AP[facility] EXAM: Two-dimensional and M-mode echocardiogram with Doppler and color Doppler. Other Information Quality : FairHR: 81bpm Rhythm : NSRTechnically limited study due to body habitus. INDICATION Cardiac Disease: CAD Surgery/Intervention ICD/Pacemaker: RISK FACTORS Hypertension Obesity Hyperlipidemia 2D DIMENSIONS Left Atrium(2D)4.2 (1.6-4.0cm)IVSd0.8 (0.7-1.1cm) Aortic Root(2D)2.5 (2.0-3.7cm)LVDd5.1 (3.9-5.9cm) LVOT Diameter1.8 (1.8-2.4cm)PWd0.8 (0.7-1.1cm) LVDs4.6 (2.5-4.0cm)FS (%) 10.5 % SV28.7 ml Aortic Valve AoV Peak Deven.111.1cm/sAoV VTI20.9cm AO Peak GR.4.9mmHgLVOT Peak Deven.76.4cm/s LVOT VTI 14.63cmAO Mean GR.3mmHg JESÚS (VMAX)1.80il2EKQ (VTI)1.83cm2 Mitral Valve MV E Qoavusem728.4cm/sMV E Peak Gr.8mmHg MV DECEL [id number] A Mvzkfulz37.6cm/s MV E Mean Gr.2mmHgE/A Ratio2.4 MV A Vfolsvst132te Pulmonary Valve PV Peak Qrokmtlo95.2cm/sPV Peak Grad.2mmHg Tricuspid Valve TR P. Kgogiklx682xf/sTR Peak Gr.42mmHg Pulmonary Vein S1 Yaatznix39.0cm/sD2 Fthkwxfb11.9cm/s LEFT VENTRICLE The Left Ventricle is moderately dilated. There is normal left ventricular wall thickness. The ejecti on fraction is severely impaired. LV ejection fraction is estimated at 15%. There is severe global hy pokinesis of the left ventricle. Transmitral Doppler flow pattern is Grade III-reversible restrictive diastolic dysfunction. No left ventricle thrombus noted on this study. There is no ventricular septa l defect visualized. There is no left ventricular aneurysm. There is no mass noted in the left ventri vinh. RIGHT VENTRICLE The right ventricle is normal size. There is normal right ventricular wall thickness. The right ventr icular systolic function is normal. Device lead in the right ventricle. ATRIA The left atrium is mildly dilated. The right atrium size is normal. The interatrial septum is intact with no evidence for an atrial septal defect or patent foramen ovale as noted on 2-D or Doppler imagi ng. AORTIC VALVE The aortic valve is mildly sclerotic. Doppler and Color Flow revealed no significant aortic regurgita tion. There is no significant aortic valvular stenosis. There is no aortic valvular vegetation. MITRAL VALVE The mitral valve is mildly thickened. There is no evidence of mitral valve prolapse. There is no mitr al valve stenosis. Doppler and Color-flow revealed mild mitral regurgitation. TRICUSPID VALVE The tricuspid valve is normal in structure and function. Doppler and Color Flow revealed mild tricusp id regurgitation. The pulmonary artery systolic pressure is estimated at 50 mmHg. There is no tricusp id valve prolapse or vegetation. There is no tricuspid valve stenosis. PULMONIC VALVE The pulmonary valve is normal in structure and function. Trivial pulmonic regurgitation There is no p ulmonic valvular stenosis. GREAT VESSELS The aortic root is normal in size. The ascending aorta is normal in size. The pulmonary artery is nor mal. The IVC is mildly dilated with blunted inspiratory response PERICARDIAL EFFUSION There is no pleural effusion. There is no evidence of significant pericardial effusion. Critical Notification Critical Value: No <Conclusion> The Left Ventricle is moderately dilated. The ejection fraction is severely impaired. LV ejection fraction is estimated at 15%. There is severe global hypokinesis of the left ventricle. Doppler and Color Flow revealed no significant aortic regurgitation. There is no significant aortic valvular stenosis. Doppler and Color-flow revealed mild mitral regurgitation. Doppler and Color Flow revealed mild tricuspid regurgitation. The pulmonary artery systolic pressure is estimated at 50 mmHg. Signed by : Baldev Gleason MD Electronically Approved : 10/10/2020 17:56:44
--- NOTE | 2020-10-10 18:38 | RAD ---
MR#: [id number] Date of Study: 10/10/2020 Ordering Physician: ADITI HUERTA, Referring Physician: KIMMIE ONWAK Tech: RT Anton SutherlandR) (N) APPROVED REPORT Test Type: Pharmacological Stress Nurse/Tech: RT Ena (R) (N) Test Indications: coronary artery disease, chest pain, dyspnea Cardiac History: 2 stents 4 years ago, pacemaker/defibrillator Medications: see ehr Medical History: asthma/COPD, hypertension, diabetic Resting ECG: sinus rythm Resting Heart Rate: 79 bpm Resting Blood Pressure: 149/77mmHg Pretest Chest Pain: None Nurse/Tech Notes Consent: The procedure was explained to the patient in lay terms. Informed consent was witnessed. Morales eout was entered into [employer]. History and Stress Test performed by RT Ena (Cira) (N) Pharm. Details Pharmacologic stress testing was performed using 0.4mg per 5ml of regadenoson given intravenously ove r 7-10 seconds. POST EXERCISE Reason for Termination: Infusion complete Max HR: 83 bpm Max Blood Pressure: 150/69mmHg INTERPRETATION Stress EKG Conclusion: The resting EKG shows a sinus rhythm, septal Q wave and nonspecific ST-T wave changes. The stress EKG shows no significant changes from baseline. Abnormal resting EKG but no EKG evidence of stress-induced ischemia. Imaging Protocol IMAGE PROTOCOL: Rest Tc-99m/stress Tc-99m 1 day Rest: Stress: Viability: Radiopharm.Tc99m [id number] Sestamibi Dose10.3mCi 30.1mCi Duration 15min. 10min. Img Date 10/10/2020 10/10/2020 Inj-Img Qyar76pqq. 60min. Rest Admin Site:IV - Right AntecubitalAdministrator: RT Anton SutherlandR)(N) Stress Admin Site: IV - Right AntecubitalAdministrator: RT Ena (Cira)(N) STRESS DATA End Diast. Vol.161.0mlAv. Heart Rate80.0bpm End Syst. Vol.110.0mlCO Index BSA0.0L/min Myocardial Jkbf776.0gEject. Bjohzrhk24.0% Stress Rates Pk. Fill Rate2.52EDV/secLVtime Pk. Fill 100.02msec Pk. Empty Rate2.34ESV/secLVtime Pk. Rurcv041.08msec 1/3 Pk. Fill1.43EDV/sec Stress Scores Regional WT3.00Summed WT39.00 Regional WM1.00Summed WM27.00 LV Perfusion Stress scans show a large defect in the inferior septal/apical region. Rest scans show a large defect of the inferior septal/apical region. 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 Wall Motion Left ventricular systolic function is significantly decreased with an ejection fraction of 31% and wa ll motion abnormalities as above in the inferior septal/apical region. LV Perf. Quant 17 Seg. SSS34.00 17 Seg. SRS33.00 17 Seg. SDS2.00 Stress Defect Extent (% LAD)66.30Rest Defect Extent (% LAD)63.10Rev. Defect Extent (% LAD)6.90 Stress Defect Extent (% LCX) 60.00Rest Defect Extent (% LCX)65.00Rev. Defect Extent (% LCX)0.00 Stress Defect Extent (% RCA)77.80Rest Defect Extent (% RCA)74.40Rev. Defect Extent (% RCA)0.00 Stress Defect Extent (% MARY)67.40Rest Defect Extent (% MARY)65.90Rev. Defect Extent (% MARY)2.60 Conclusion 1. Abnormal baseline EKG but no EKG evidence of stress-induced ischemia. 2. 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 3. Left ventricular systolic function is significantly decreased with an ejection fraction of 31% wit h wall motion abnormalities in the regions as noted above. 4. Moderate to moderately high risk Lexiscan nuclear stress test showing a large prior infarct with a n ejection fraction of 31% but minimal evita-infarct reversibility. Signed by : Baldev Gleason MD Electronically Approved : 10/10/2020 18:37:41
== END ==
LOC: NM 08:33
PROVIDERS: ATTEND Internal Medicine Cardiovascular Disease
DX: I08.8 Other rheumatic multiple valve diseases (principal); R94.31 Abnormal electrocardiogram [ECG] [EKG]; I10 Essential (primary) hypertension; E66.9 Obesity, unspecified; Z68.45 Body mass index [BMI] 70 or greater, adult; E78.5 Hyperlipidemia, unspecified; I25.10 Atherosclerotic heart disease of native coronary artery without angina pectoris; R07.9 Chest pain, unspecified; R06.00 Dyspnea, unspecified
CPT/HCPCS: 78452; 93017; 93306; A9500; J2785

== ENCOUNTER → 2021-01-05 | Outpatient (CLI) | payer MEDICARE, BC ==
[~2021-01-05] MED LIST changes: +AMIO200T54 PO; -AMIO200T6 PO; -CITA10TA4 PO; +CITA10TA5 PO; -REGADENOSON 0.4 MG/5 ML DISP.SYRIN. IV ONE
--- NOTE | 2021-01-05 09:21 | RAD ---
EXAMINATION: US DPLX VENOUS EXTREMITY LOWER LT (LOWER EXTREMITY VENOUS ULTRASOUND) CLINICAL HISTORY: LLE PAIN AND SWELLING, CELLULITIS TECHNIQUE: Sonographic grayscale images obtained of the left lower extremity deep venous system with color flow Doppler, compression, and augmentation techniques as indicated. Images obtained and store d in a permanent archive. COMPARISON: None FINDINGS: No evidence of absent flow or incompressibility within the common femoral vein, femoral vein, or popl iteal vein. Visualized calf veins appear patent on limited evaluation. Subcutaneous edema in the leg. IMPRESSION: No evidence of left lower extremity DVT. Electronically signed by: Marbin Coronado DO (01/05/2021 9:18 AM) JOHNNA
== END ==
LOC: US 08:48
PROVIDERS: ATTEND Physician Assistant Medical
DX: R60.0 Localized edema (principal); M79.605 Pain in left leg
CPT/HCPCS: 93971

== ENCOUNTER → 2021-04-27 | Outpatient (CLI) | payer MEDICARE, BC ==
[2021-04-27 12:03] LABS: CALCIUM 9.3 mg/dL (8.5-10.1); CREATININE 2.3 mg/dL (0.6-1.0); GFR 20.8; POTASSIUM 3.8 mmol/L (3.5-5.1)
== END ==
LOC: LAB 10:33
PROVIDERS: ATTEND Internal Medicine Nephrology
DX: I13.0 Hypertensive heart and chronic kidney disease with heart failure and stage 1 through stage 4 chronic kidney disease, or unspecified chronic kidney disease (principal); E11.22 Type 2 diabetes mellitus with diabetic chronic kidney disease; N18.32 Chronic kidney disease, stage 3b; I50.9 Heart failure, unspecified; N17.9 Acute kidney failure, unspecified; E55.9 Vitamin D deficiency, unspecified; R10.9 Unspecified abdominal pain; I27.82 Chronic pulmonary embolism; D63.1 Anemia in chronic kidney disease; Z68.32 Body mass index [BMI] 32.0-32.9, adult; Z79.4 Long term (current) use of insulin
CPT/HCPCS: 36415; 80048

== ENCOUNTER → 2021-05-25 | Outpatient (CLI) | payer MEDICARE, BC ==
--- NOTE | 2021-05-25 14:03 | RAD ---
MR#: [id number] Date of Study: 05/25/2021 Ordering Physician: ADITI HUERTA, Referring Physician: ADITI HUERTA, Tech: Brenda Mahoney RVT,ANITA APPROVED REPORT Patient Location : OUT-PATIENT Indications Venous Insufficiency Risk Factors Limited grayscale images the bilateral saphenofemoral junctions are grossly unremarkable The right great saphenous vein measures 6 mm and the left great saphenous vein measures 5 mm. Bilate ral greater saphenous veins and lesser saphenous veins do not show any evidence of reflux. Past History Diabetes Medications Aspirin Critical Notification Critical Value: No <Conclusion> 1. No significant lower extremity venous reflux Signed by : Ike Grant, Electronically Approved : 05/25/2021 14:03:41
== END ==
LOC: US 11:59
PROVIDERS: ATTEND Internal Medicine Cardiovascular Disease
DX: I87.2 Venous insufficiency (chronic) (peripheral) (principal)
CPT/HCPCS: 93970

== ENCOUNTER → 2021-06-05 | Outpatient (CLI) | payer MEDICARE, BC ==
--- NOTE | 2021-06-05 11:12 | RAD ---
Exam: XR SHOULDER_LEFT 2+ VIEWS, XR HUMERUS_LT 2 VIEWS History: Left arm pain. Comparison: Chest x-ray 01/21/2019 Findings: Osseous mineralization is normal. No acute fracture or dislocaton. Degenerative changes of the left a cromioclavicular joint. The glenohumeral joint is unremarkable. Partially visualized pacemaker-defibr illator leads. Impression: 1. No acute osseous abnormality of the left shoulder and humerus. Electronically signed by: Marcello Bell MD (06/05/2021 11:09 AM) [id number]
== END ==
LOC: RAD 10:36
PROVIDERS: ATTEND Nurse Practitioner Family
DX: M19.012 Primary osteoarthritis, left shoulder (principal)
CPT/HCPCS: 73030; 73060

== ENCOUNTER → 2021-07-19 | Outpatient (CLI) | payer MEDICARE, BC ==
[2021-07-19 14:02] LABS: BASO % 0 % (0-3); EOS # 0.1 x10^3/uL (0.0-0.7); EOS % 1 % (0-3); HEMATOCRIT 41.9 % (36.0-47.0); LYMPH # 0.7 x10^3/uL (1.0-4.8); LYMPH % 11 % (24-48); MEAN CORPUSCULAR HEMOGLOBIN 31 pg (25-35); MEAN CORPUSCULAR HGB CONC 33 g/dL (31-37); MEAN CORPUSCULAR VOLUME 94 fL (79-100); MONO # 0.6 x10^3/uL (0.0-1.1); MONO % 8 % (0-9); NEUT # 5.4 x10^3uL (1.8-7.7); NEUT % 80 % (31-73); PLATELET COUNT 171 x10^3/uL (140-400); RED BLOOD COUNT 4.48 x10^6/uL (3.50-5.40); RED CELL DISTRIBUTION WIDTH 13.5 % (11.5-14.5); WHITE BLOOD COUNT 6.8 x10^3/uL (4.0-11.0)
[2021-07-19 14:13] LABS: ALBUMIN 3.5 g/dL (3.4-5.0); CALCIUM 8.8 mg/dL (8.5-10.1); CREATININE 2.8 mg/dL (0.6-1.0); GFR 16.6; POTASSIUM 3.6 mmol/L (3.5-5.1); TOTAL BILIRUBIN 0.6 mg/dL (0.2-1.0); TOTAL PROTEIN 6.9 g/dL (6.4-8.2)
== END ==
LOC: LAB 13:07
PROVIDERS: ATTEND Internal Medicine Hematology & Oncology
DX: C50.012 Malignant neoplasm of nipple and areola, left female breast (principal)
CPT/HCPCS: 36415; 80053; 85025